=== PATIENT | female | born 1990 | race Caucasian/White ===

== ENCOUNTER 2016-10-12 17:01 | Emergency (ER) | payer OTHER ==
--- NOTE | 2016-10-12 20:18 | ED NURSING NOTES ---
Clinical Report - Nurses [facility] [address] [place] [address] 10/12/2016 17:01 [id number] Triage time 17:21. Acuity: LEVEL 3. Chief Complaint: ABDOMINAL PAIN and NAUSEA. Alert. No acute distress. ( Pt. states she just woke up and had pain in her stomach and felt sick:super nauseated.). SEPSIS SCREEN: Sepsis Screen. Negative (no infection suspected/documented). PRANEETH COMA SCORE: [place] Coma Scale: 15- eyes open spontaneously (4); best verbal response- oriented x 4 (5); best motor response- obeys commands (6). --17:27 Candice Moy R.N. 17:21 10/12/16. BP: 112/66. HR: 84. RR: 16. O2 saturation: 99%. Temp: 97.9 F. Pain level now: 7/10. Describes the quality as sharp. No radiation noted. No provoking / relieving factors. It has been constant. --17:27 Candice Moy R.N. Weight: 61.2 kg stated. Height/Length: 65 inches Per Patient. BMI: 22.5. --17:23 Candice Moy R.N. Medications TraZODone HCl Oral 50 mg, at bedtime. Tylenol Oral. Zoloft Oral. --17:26 Candice Moy R.N. Allergies Amoxicillin. Penicillin. --17:26 Candice Moy R.N. History Arrived by private vehicle. Historian: patient. Unaccompanied. Primary physician (Alex). Onset. (3 days ago). Treatment PREVENTIVE MEDICINE SPECIALIST: None. PAST MEDICAL HX: Immunizations: up-to-date. Has had a hysterectomy. SOCIAL HX: Current every day heavy tobacco smoker (cigarette)- less than 1 pack per day. Never smoker. Alcohol use; consumes beer occasionally. History of occasional drug use: marijuana. No recent travel. No infectious disease exposure. No known contact with a sick individual. ABUSE ASSESSMENT: Abuse assessment: The patient was asked "Do you feel safe in your home?" and "Has anyone hurt you or threatened to hurt you?". No report of abuse. SELF HARM ASSESSMENT: A self harm assessment was performed. The patient answered "no" to the question "Do you have thoughts of harming or killing yourself?" and "Have you recently had thoughts about harming or killing others?". Bedside precautions. NUTRITIONAL RISK ASSESSMENT: The nutritional risk assessment revealed no deficiencies. FUNCTIONAL ASSESSMENT: Functional assessment: no impairments noted. LEARNING NEEDS ASSESSMENT: The learning needs assessment revealed no barriers. --17:27 Candice Moy R.N. PROBLEMS: Bronchitis. Abdominal Pain. Headache. Depression. Drug Poisoning. Sinusitis. Lifestyle / Substance Problems. Pyelonephritis. Gastroenteritis. UTI - Urinary Tract Infection. --17:26 Candice Moy R.N. ADDITIONAL SURGERIES: Cholecystectomy. Hysterectomy. Guadalupe Fundoplasty. Oophorectomy. --17:27 Candice Moy R.N. Interventions ID band on patient. Ambulatory. --17:27 Candice Moy R.N. PHYSICAL ASSESSMENT Ambulatory to room. ( Pt. states her last normal BM was x3 days ago.). GENERAL / NEURO / PSYCH: Alert. Appears in no acute distress. HEENT: Mucous membranes are pink. RESPIRATORY: Respirations not labored. CVS: Capillary refill less than 2 seconds. GI / : Abdomen soft. Abdominal tenderness in the right upper quadrant. SKIN: Skin is warm and dry. --17:28 Candice Moy R.N. NURSING PROGRESS NOTES Two patient identifiers checked. Call light placed in reach. Side rails up x 2. Bed placed in lowest position. Brakes of bed on. Patient ready for evaluation- chart flagged. --17:28 Candice Moy R.N. 18:00 10/12/2016 Site #1 started via IV in the right antecubital space with an 20g angiocath, with aseptic technique and good blood return; one attempt. Blood drawn: rainbow set. Labeled in the presence of the patient and sent to the lab. Saline lock flushed with 10 mL saline. --18:34 Candice Moy R.N. 18:35 10/12/2016 Zofran (Ondansetron HCl) IVP 4 mg given over 1 minute(s) via site #1. Allergies verified and confirmed 5 rights. IV patency established. IV site checked: no pain, redness, or swelling. IV flushed thoroughly pre- and post-medication administration. --18:35 Candice Moy R.N. 18:36 10/12/2016 Toradol IVP 30 mg given over 2 minute(s) via site #1. Allergies verified and confirmed 5 rights. IV patency established. IV site checked: no pain, redness, or swelling. IV flushed thoroughly pre- and post-medication administration. --18:36 Candice Moy R.N. ( correction to prior charting: IV placed at 1728.). --18:37 Candice Moy R.N. Reassessment after medication administered. She has had no adverse reaction. Overall patient status is the same. --18:40 Candice Moy R.N. 18:40 10/12/16. BP: 101/61. HR: 77. RR: 16. O2 saturation: 100%. Pain level now 7/10. --18:40 Candice Moy R.N. 19:43 10/12/16. BP: 107/68. HR: 72. RR: 16. O2 saturation: 100%. Pain level now 9/10. --19:44 Candice Moy R.N. 20:28 10/12/2016 Zofran (Ondansetron HCl) IVP 4 mg given over 1 minute(s) via site #1. Allergies verified and confirmed 5 rights. IV patency established. IV site checked: no pain, redness, or swelling. IV flushed thoroughly pre- and post-medication administration. --20:28 Candice Moy R.N. 20:30 10/13/2016 Zofran IVP Response: no adverse reaction pain is improving. --00:04 Candice Moy R.N. DISPOSITION / DISCHARGE 00:02 10/12/16. BP: deferred. HR: deferred. RR: 16. O2 saturation: deferred. Temp: 98.6 F. Fernandez-Vyas pain scale: /10. --00:12 Candice Moy R.N. ( 19:43 107/68. HR: 72. RR: 16. O2 saturation: 100%. Pain level now 910). --00:12 Candice Moy R.N. 20:30 10/12/2016 Site #1 removed upon discharge. Catheter intact. Manual pressure and bandaid applied. --00:13 Candice Moy R.N. 20:30. Departure time: 2029. Condition at departure: stable. No learning barriers present. Discharge instructions provided and reviewed with the patient. Reviewed medication(s) side effects, precautions, dosing and course information. Prescription(s) given to the patient. Reviewed referral to family practice for followup. Patient verbalized understanding. Written instructions provided in Eritrean. The patient was discharged home and accompanied by stand up forklift operator. She left the Emergency Department ambulatory and via private vehicle. Concrete Journeyman driving. Medication list reviewed and validated. --00:15 Candice Moy R.N. ( all discharge done at 2029). --00:15 Candice Moy R.N. Locked/Released at 10/13/2016 0:16 by Candice Moy R.N.
--- NOTE | 2016-10-12 20:18 | ED ORDER SUMMARY ---
..... Patient: MALCOLM ORLANDO OrderSheet [facility] VisitID: [id number] [address] [place] [address] 25y, F Registration Date/Time: 10/12/2016 ORDER SHEET Weight: 61.2 kg (stated) Allergies: Amoxicillin, Penicillin GENERAL ORDERS: UA-Culture if indicated Urgent (17:32 10/12/2016 SReitz R.N. per protocol) (17:56 NHouse ER Tech1) CBC w Diff Urgent (18:20 10/12/2016 HBivens A.R.N.P.) (18:57 SReitz R.N.) CMP Urgent (18:20 10/12/2016 HBivens A.R.N.P.) (18:57 SReitz R.N.) Amylase Urgent (18:20 10/12/2016 HBivens A.R.N.P.) (18:57 SReitz R.N.) Lipase Urgent (18:20 10/12/2016 HBivens A.R.N.P.) (18:57 SReitz R.N.) Urine Urgent (18:20 10/12/2016 HBivens A.R.N.P.) (18:33 HBivens A.R.N.P.) (Cancelled: Other18:33 HBivens A.R.N.P.) MEDICATION ORDERS: IV FLUIDS: Toradol IV 30 mg (NOW) (18:19 10/12/2016 HBivens A.R.N.P.) (Ack 18:21 SReitz R.N.) (18:36 SReitz R.N.) Zofran IV 4 mg (NOW) (18:19 10/12/2016 HBivens A.R.N.P.) (Ack 18:21 SReitz R.N.) (18:35 SReitz R.N.) IV Saline Lock (18:20 10/12/2016 HBivens A.R.N.P.) (Ack 18:21 SReitz R.N.) Zofran IV 4 mg (NOW) (20:28 10/12/2016 SReitz R.N. verbal order read back to HBivens A.R.N.PGiovanny) (20:28 Ludy Yañez) ORDER SHEET NOTES: [Electronically signed by Lynn GoodsonNGiovannyPGiovanny (21:31 10/12/2016)] [Electronically signed by Candice Moy R.N. (00:16 10/13/2016)] [Electronically locked/signed by Candice Moy R.N. (00:16 10/13/2016)]
--- NOTE | 2016-10-12 20:18 | ED ORDER SUMMARY ---
..... Patient: MALCOLM ORLANDO OrderSheet [facility] VisitID: [id number] [address] [place] [address] 25y, F Registration Date/Time: 10/12/2016 ORDER SHEET Weight: 61.2 kg (stated) Allergies: Amoxicillin, Penicillin GENERAL ORDERS: UA-Culture if indicated Urgent (17:32 10/12/2016 SReitz R.N. per protocol) (17:56 NHouse ER Tech1) CBC w Diff Urgent (18:20 10/12/2016 HBivens A.R.N.P.) (18:57 SReitz R.N.) CMP Urgent (18:20 10/12/2016 HBivens A.R.N.P.) (18:57 SReitz R.N.) Amylase Urgent (18:20 10/12/2016 HBivens A.R.N.P.) (18:57 SReitz R.N.) Lipase Urgent (18:20 10/12/2016 HBivens A.R.N.P.) (18:57 SReitz R.N.) Urine Urgent (18:20 10/12/2016 HBivens A.R.N.P.) (18:33 HBivens A.R.N.P.) (Cancelled: Other18:33 HBivens A.R.N.P.) MEDICATION ORDERS: IV FLUIDS: Toradol IV 30 mg (NOW) (18:19 10/12/2016 HBivens A.R.N.P.) (Ack 18:21 SReitz R.N.) (18:36 SReitz R.N.) Zofran IV 4 mg (NOW) (18:19 10/12/2016 HBivens A.R.N.P.) (Ack 18:21 SReitz R.N.) (18:35 SReitz R.N.) IV Saline Lock (18:20 10/12/2016 HBivens A.R.N.P.) (Ack 18:21 SReitz R.N.) Zofran IV 4 mg (NOW) (20:28 10/12/2016 SReitz R.N. verbal order read back to HBivens A.R.N.PGiovanny) (20:28 Ludy Yañez) ORDER SHEET NOTES: [Electronically signed by Lynn GoodsonNGiovannyPGiovanny (21:31 10/12/2016)] [Electronically signed by Candice Moy R.N. (00:16 10/13/2016)] [Electronically locked/signed by Candice Moy R.N. (00:16 10/13/2016)]
--- NOTE | 2016-10-12 20:18 | ED CLINICAL REPORT ---
Clinical Report - Physicians/Mid Levels [facility] [address] [place] [address] 10/12/2016 17:01 Patient: MALCOLM ORLANDO Time Seen: 18:12; initial patient contact, initial documentation, patient care assumed. Arrived- By private vehicle. Historian- patient. HISTORY OF PRESENT ILLNESS Chief Complaint: ABDOMINAL PAIN. At its maximum, severity described as moderate. When seen in the E.D., severity described as moderate. Modifying factors. Not worsened by anything. Not relieved by anything. It is described as "pain" and it is described as located in the right upper quadrant, epigastric area and left upper quadrant and in the upper abdomen. This started about 3 days ago and is still present. The patient has had nausea. No loss of appetite, vomiting or diarrhea. No recent travel. Similar symptoms previously: Chronically, as bad. Recent medical care: Not recently seen/assessed. REVIEW OF SYSTEMS No constipation, black stools, hematemesis, difficulty with urination or pain with urination. No urinary frequency, bloody stools, fever, chest pain or difficulty breathing. Denies current . All systems otherwise negative, except as recorded above. PAST HISTORY See nurses notes. PROBLEMS: Bronchitis. Abdominal Pain. Headache. Depression. Drug Poisoning. Sinusitis. Lifestyle / Substance Problems. Pyelonephritis. Gastroenteritis. UTI - Urinary Tract Infection. --17:26 Candice Moy RCalli. ADDITIONAL SURGERIES: Cholecystectomy. Hysterectomy. Guadalupe Fundoplasty. Oophorectomy. --17:27 Candice Moy RCalli. SOCIAL HISTORY Heavy tobacco smoker. Occasional alcohol use. History of occasional drug use: marijuana. No recent travel. Is a local resident. FAMILY HISTORY Negative. ADDITIONAL NOTES The nursing notes have been reviewed with agreement regarding the chief complaint, HPI, ROS, PMH and patient medications and allergies. PHYSICAL EXAM Vital Signs: 10/12/2016 17:21 BP: 112/66. HR: 84. RR: 16. O2 saturation: 99%. Temp: 97.9 F. Pain level now: 04/18. Have been reviewed as normal and appear to be correct. Appearance: Alert. Oriented X3. No acute distress. Eyes: Pupils equal, round and reactive to light. Eyes normal inspection. Neck: Normal inspection. Neck supple. CVS: Normal heart rate and rhythm. Heart sounds normal. Pulses normal. Respiratory: No respiratory distress. Breath sounds normal. Chest nontender. Abdomen: Soft and nontender. Bowel sounds normal. No organomegaly. No mass. Back: Normal inspection. Skin: Skin warm and dry. Normal skin color. No rash. Normal skin turgor. Extremities: Extremities exhibit normal ROM. No lower extremity edema. Neuro: Oriented X 3. No motor deficit. No sensory deficit. LABS, X-RAYS, AND EKG Laboratory Tests: UA-Culture if indicated: (MISBAH: 10/12/2016 17:30) ( [facility] 10/12/2016 18:14) Final results Test Result Flag Units (Reference) URINE COLOR YELLOW URINE APPEARANCE CLEAR URINE GLUCOSE NEGATIVE (NEGATIVE) URINE BILIRUBIN NEGATIVE (NEGATIVE) URINE KETONE NEGATIVE (NEGATIVE) URINE SPECIFIC GRAVITY 1.020 (1.010-1.030) URINE PH 7.0 (5.0-8.0) URINE PROTEIN NEGATIVE (NEGATIVE) URINE UROBILINOGEN 0.2 EU/dL (0.2-1.0) URINE NITRITE NEGATIVE (NEGATIVE) URINE BLOOD NEGATIVE (NEGATIVE) URINE LEUK ESTERASE NEGATIVE (NEGATIVE) URINE RBC 0-1 rbc/hpf (0-1) URINE WBC 0-1 wbc/hpf (0-1) URINE EPITHELIAL CELLS 0-1 EPI/hpf (0-5) URINE BACTERIA NONE SEEN (NONE SEEN) URINE COMMENT CULT NOT INDICATED URINE CULTURES ARE SET-UP BASED ON THE FOLLOWING CRITERIA:POSITIVE NITRITEPOSITIVE LEUKOCYTE ESTERASEGREATER THAN 10 WHITE BLOOD CELLSMODERATE (2+) OR GREATER BACTERIA Urine: (MISBAH: 10/12/2016 17:50) ( [facility] 10/12/2016 18:31) Final results Test Result Flag Units (Reference) URINE NEGATIVE CBC w Diff: (MISBAH: 10/12/2016 17:50) ( [facility] 10/12/2016 18:31) Final results Test Result Flag Units (Reference) WHITE BLOOD COUNT 10.3 K/uL (4.5-11.5) RED BLOOD COUNT 3.77 L M/uL (4.00-5.20) HEMOGLOBIN 12.1 gm/dL (12.0-16.0) HEMATOCRIT 36.7 % (36.0-46.0) MEAN CELL VOLUME 97 fL (80-100) MEAN CORPUSCULAR HGB 32 pg (26-34) MEAN CORPUSCULAR HGB CONC 33 g/dL (31-37) RED CELL DISTRIBUTION WIDTH 12.6 % (11.6-14.8) PLATELET COUNT 310 K/uL (150-400) NEUTROPHIL % 70.8 % (50-75) LYMPH % 20.9 L % (25-40) MONO % 4.6 % (3-14) EOSINOPHIL % 2.4 % (0-4) BASOPHIL % 1.3 % (0-2) CMP: (MISBAH: 10/12/2016 17:50) ( [facility] 10/12/2016 18:42) Final results Test Result Flag Units (Reference) GLUCOSE 91 mg/dL (70-110) BUN 25 H mg/dL (7-18) CREATININE 1.0 mg/dL (0.6-1.3) Estimated GFR >60 mL/min Estimated GFR- >60 mL/min Note: Persistent reduction over 3 months in eGFR<60 mL/min/1.73 m2 defines CKD. Patients with eGFR values>=60 mL/min/1.73 m2 may also have CKD if evidence ofpersistent proteinuria. Additional information may be foundat www.kidney.org. SODIUM 141 mmol/L (136-145) POTASSIUM 4.0 mmol/L (3.5-5.1) CHLORIDE 106 mmol/L (98-107) CARBON DIOXIDE 26 mmol/L (21-32) CALCIUM 8.8 mg/dL (8.5-10.1) TOTAL PROTEIN 7.1 g/dL (6.4-8.2) ALBUMIN 3.9 g/dL (3.3-5.0) BILIRUBIN, TOTAL 0.4 mg/dL (0.0-1.0) ALKALINE PHOSPHATASE 51 U/L (46-116) AST (SGOT) 13 L U/L (15-37) ALT (SGPT) 15 U/L (12-78) LIPASE 255 U/L (73-393) AMYLASE 75 U/L (25-115) . PROGRESS AND PROCEDURES Course of Care: 18:15 10/12/16. pt has robert recommending no narcs be given, pt using different last names, and frequent er visits, see report for full details. Patient counseled in person regarding the patient's stable condition, test results and diagnosis. 19:49. Differential Diagnosis: I considered gastritis, gastroenteritis, gastroesophageal reflux disease, diverticulitis, colon cancer, ulcerative colitis, Crohn's disease, small bowel obstruction, adhesions, obstipation, hepatitis, pancreatitis, common bile duct obstruction, cholangitis, urinary tract infection, ureterolithiasis and viral syndrome as a possible cause of abdominal pain in this patient. This is a partial list of diagnoses considered. (substance abuse). Above considerations are based on history, physical exam and laboratory data. Differential diagnosis was discussed with patient. Disposition: Discharged home in good and improved condition (20:17). Condition: good and stable. CLINICAL IMPRESSION Chronic abdominal pain of undetermined cause. INSTRUCTIONS Warnings: GENERAL WARNINGS: Return or contact your physician immediately if your condition worsens or changes unexpectedly, if not improving as expected, or if other problems arise. SPECIFICALLY, return if you develop pain in the abdomen, fever, the inability to keep fluids down, blood in vomitus, blood in diarrhea, fainting or lightheadedness. Prescription Medications: Zofran 4 mg: Take 1 orally every six hours as needed for nausea/vomiting. Dispense ten (10). No refills. Substitution is permissible. Pepcid 20 mg tablets: Take 1 orally every 12 hours. Dispense thirty (30). No refills. Substitution is permissible. Bentyl 20 mg tablets: take 1 orally every 6 hours as needed. Dispense thirty (30). No refills. Substitution is permissible. Follow-up: Follow up with your doctor in about two days even if well. Call for an appointment. Summary of care provided to patient. Understanding of the discharge instructions verbalized by patient. (Electronically signed by Lynn Goodson A.R.N.P. 10/12/2016 21:31)
--- NOTE | 2016-10-12 20:18 | ED NURSING NOTES ---
Clinical Report - Nurses [facility] [address] [place] [address] 10/12/2016 17:01 [id number] Triage time 17:21. Acuity: LEVEL 3. Chief Complaint: ABDOMINAL PAIN and NAUSEA. Alert. No acute distress. ( Pt. states she just woke up and had pain in her stomach and felt sick:super nauseated.). SEPSIS SCREEN: Sepsis Screen. Negative (no infection suspected/documented). PRANEETH COMA SCORE: [place] Coma Scale: 15- eyes open spontaneously (4); best verbal response- oriented x 4 (5); best motor response- obeys commands (6). --17:27 Candice Moy R.N. 17:21 10/12/16. BP: 112/66. HR: 84. RR: 16. O2 saturation: 99%. Temp: 97.9 F. Pain level now: 7/10. Describes the quality as sharp. No radiation noted. No provoking / relieving factors. It has been constant. --17:27 Candice Moy R.N. Weight: 61.2 kg stated. Height/Length: 65 inches Per Patient. BMI: 22.5. --17:23 Candice Moy R.N. Medications TraZODone HCl Oral 50 mg, at bedtime. Tylenol Oral. Zoloft Oral. --17:26 Candice Moy R.N. Allergies Amoxicillin. Penicillin. --17:26 Candice Moy R.N. History Arrived by private vehicle. Historian: patient. Unaccompanied. Primary physician (Alex). Onset. (3 days ago). Treatment SALES COMMISSIONS ANALYST: None. PAST MEDICAL HX: Immunizations: up-to-date. Has had a hysterectomy. SOCIAL HX: Current every day heavy tobacco smoker (cigarette)- less than 1 pack per day. Never smoker. Alcohol use; consumes beer occasionally. History of occasional drug use: marijuana. No recent travel. No infectious disease exposure. No known contact with a sick individual. ABUSE ASSESSMENT: Abuse assessment: The patient was asked "Do you feel safe in your home?" and "Has anyone hurt you or threatened to hurt you?". No report of abuse. SELF HARM ASSESSMENT: A self harm assessment was performed. The patient answered "no" to the question "Do you have thoughts of harming or killing yourself?" and "Have you recently had thoughts about harming or killing others?". Bedside precautions. NUTRITIONAL RISK ASSESSMENT: The nutritional risk assessment revealed no deficiencies. FUNCTIONAL ASSESSMENT: Functional assessment: no impairments noted. LEARNING NEEDS ASSESSMENT: The learning needs assessment revealed no barriers. --17:27 Candice Moy R.N. PROBLEMS: Bronchitis. Abdominal Pain. Headache. Depression. Drug Poisoning. Sinusitis. Lifestyle / Substance Problems. Pyelonephritis. Gastroenteritis. UTI - Urinary Tract Infection. --17:26 Candice Moy R.N. ADDITIONAL SURGERIES: Cholecystectomy. Hysterectomy. Guadalupe Fundoplasty. Oophorectomy. --17:27 Candice Moy R.N. Interventions ID band on patient. Ambulatory. --17:27 Candice Moy R.N. PHYSICAL ASSESSMENT Ambulatory to room. ( Pt. states her last normal BM was x3 days ago.). GENERAL / NEURO / PSYCH: Alert. Appears in no acute distress. HEENT: Mucous membranes are pink. RESPIRATORY: Respirations not labored. CVS: Capillary refill less than 2 seconds. GI / : Abdomen soft. Abdominal tenderness in the right upper quadrant. SKIN: Skin is warm and dry. --17:28 Candice Moy R.N. NURSING PROGRESS NOTES Two patient identifiers checked. Call light placed in reach. Side rails up x 2. Bed placed in lowest position. Brakes of bed on. Patient ready for evaluation- chart flagged. --17:28 Candice Moy R.N. 18:00 10/12/2016 Site #1 started via IV in the right antecubital space with an 20g angiocath, with aseptic technique and good blood return; one attempt. Blood drawn: rainbow set. Labeled in the presence of the patient and sent to the lab. Saline lock flushed with 10 mL saline. --18:34 Candice Moy R.N. 18:35 10/12/2016 Zofran (Ondansetron HCl) IVP 4 mg given over 1 minute(s) via site #1. Allergies verified and confirmed 5 rights. IV patency established. IV site checked: no pain, redness, or swelling. IV flushed thoroughly pre- and post-medication administration. --18:35 Candice Moy R.N. 18:36 10/12/2016 Toradol IVP 30 mg given over 2 minute(s) via site #1. Allergies verified and confirmed 5 rights. IV patency established. IV site checked: no pain, redness, or swelling. IV flushed thoroughly pre- and post-medication administration. --18:36 Candice Moy R.N. ( correction to prior charting: IV placed at 1728.). --18:37 Candice Moy R.N. Reassessment after medication administered. She has had no adverse reaction. Overall patient status is the same. --18:40 Candice Moy R.N. 18:40 10/12/16. BP: 101/61. HR: 77. RR: 16. O2 saturation: 100%. Pain level now 7/10. --18:40 Candice Moy R.N. 19:43 10/12/16. BP: 107/68. HR: 72. RR: 16. O2 saturation: 100%. Pain level now 9/10. --19:44 Candice Moy R.N. 20:28 10/12/2016 Zofran (Ondansetron HCl) IVP 4 mg given over 1 minute(s) via site #1. Allergies verified and confirmed 5 rights. IV patency established. IV site checked: no pain, redness, or swelling. IV flushed thoroughly pre- and post-medication administration. --20:28 Candice Moy R.N. 20:30 10/13/2016 Zofran IVP Response: no adverse reaction pain is improving. --00:04 Candice Moy R.N. DISPOSITION / DISCHARGE 00:02 10/12/16. BP: deferred. HR: deferred. RR: 16. O2 saturation: deferred. Temp: 98.6 F. Fernandez-Vyas pain scale: /10. --00:12 Candice Moy R.N. ( 19:43 107/68. HR: 72. RR: 16. O2 saturation: 100%. Pain level now 910). --00:12 Candice Moy R.N. 20:30 10/12/2016 Site #1 removed upon discharge. Catheter intact. Manual pressure and bandaid applied. --00:13 Candice Moy R.N. 20:30. Departure time: 2029. Condition at departure: stable. No learning barriers present. Discharge instructions provided and reviewed with the patient. Reviewed medication(s) side effects, precautions, dosing and course information. Prescription(s) given to the patient. Reviewed referral to family practice for followup. Patient verbalized understanding. Written instructions provided in [place]. The patient was discharged home and accompanied by police district switchboard operator. She left the Emergency Department ambulatory and via private vehicle. Manager Staffing driving. Medication list reviewed and validated. --00:15 Candice Moy R.N. ( all discharge done at 2029). --00:15 Candice Moy R.N. Locked/Released at 10/13/2016 0:16 by Candice Moy R.N.
--- NOTE | 2016-10-13 00:16 | ED DISCHARGE INSTRUCTIONS ---
Patient: MALCOLM ORLANDO General Instructions [facility] VisitID: [id number] [place] [address] 25y, F Registration Date/Time: 10/12/2016 Chronic abdominal pain of undetermined cause. INSTRUCTIONS Warnings: GENERAL WARNINGS: Return or contact your physician immediately if your condition worsens or changes unexpectedly, if not improving as expected, or if other problems arise. SPECIFICALLY, return if you develop pain in the abdomen, fever, the inability to keep fluids down, blood in vomitus, blood in diarrhea, fainting or lightheadedness. Prescription Medications: Zofran 4 mg: Take 1 orally every six hours as needed for nausea/vomiting. Dispense ten (10). No refills. Substitution is permissible. Pepcid 20 mg tablets: Take 1 orally every 12 hours. Dispense thirty (30). No refills. Substitution is permissible. Bentyl 20 mg tablets: take 1 orally every 6 hours as needed. Dispense thirty (30). No refills. Substitution is permissible. Follow-up: Follow up with your doctor in about two days even if well. Call for an appointment. Summary of care provided to patient. Understanding of the discharge instructions verbalized by patient. ADDITIONAL INFORMATION Ondansetron Oral disintegrating tablet What is this medicine? ONDANSETRON (on HUA se veronica) is used to treat nausea and vomiting caused by chemotherapy. It is also used to prevent or treat nausea and vomiting after surgery. How should I use this medicine? These tablets are made to dissolve in the mouth. Do not try to push the tablet through the foil backing. With dry hands, peel away the foil backing and gently remove the tablet. Place the tablet in the mouth and allow it to dissolve, then swallow. While you may take these tablets with water, it is not necessary to do so. Talk to your territory service representative regarding the use of this medicine in children. Special care may be needed. What side effects may I notice from receiving this medicine? Side effects that you should report to your doctor or health emergency care tech as soon as possible: allergic reactions like skin rash, itching or hives, swelling of the face, lips, or tongue breathing problems dizziness fast or irregular heartbeat feeling faint or lightheaded, falls fever and chills swelling of the hands and feet tightness in the chest Side effects that usually do not require medical attention (report to your doctor or health emergency care tech if they continue or are bothersome): constipation or diarrhea headache What may interact with this medicine? Do not take this medicine with any of the following medications: -apomorphine -cisapride -dofetilide -dronedarone -pimozide -thioridazine -ziprasidone This medicine may also interact with the following medications: -carbamazepine -phenytoin -rifampicin -tramadol -other medicines that prolong the QT interval (cause an abnormal heart rhythm) What if I miss a dose? If you miss a dose, take it as soon as you can. If it is almost time for your next dose, take only that dose. Do not take double or extra doses. Where should I keep my medicine? Keep out of the reach of children. Store between 2 and 30 degrees C (36 and 86 degrees F). Throw away any unused medicine after the expiration date. What should I tell my health care provider before I take this medicine? They need to know if you have any of these conditions: heart disease history of irregular heartbeat liver disease low levels of magnesium or potassium in the blood an unusual or allergic reaction to ondansetron, granisetron, other medicines, foods, dyes, or preservatives or trying to get breast-feeding What should I watch for while using this medicine? Check with your doctor or health emergency care tech as soon as you can if you have any sign of an allergic reaction. Famotidine Oral tablet What is this medicine? FAMOTIDINE (fa DARRYL hoskins) is a type of antihistamine that blocks the release of stomach acid. It is used to treat stomach or intestinal ulcers. It can also relieve heartburn from acid reflux. How should I use this medicine? Take this medicine by mouth with a glass of water. Follow the directions on the prescription label. If you only take this medicine once a day, take it at bedtime. Take your doses at regular intervals. Do not take your medicine more often than directed. Talk to your territory service representative regarding the use of this medicine in children. Special care may be needed. What side effects may I notice from receiving this medicine? Side effects that you should report to your doctor or health emergency care tech as soon as possible: agitation, nervousness confusion hallucinations skin rash, itching Side effects that usually do not require medical attention (report to your doctor or health emergency care tech if they continue or are bothersome): constipation diarrhea dizziness headache What may interact with this medicine? delavirdine itraconazole ketoconazole What if I miss a dose? If you miss a dose, take it as soon as you can. If it is almost time for your next dose, take only that dose. Do not take double or extra doses. Where should I keep my medicine? Keep out of the reach of children. Store at room temperature between 15 and 30 degrees C (59 and 86 degrees F). Do not freeze. Throw away any unused medicine after the expiration date. What should I tell my health care provider before I take this medicine? They need to know if you have any of these conditions: kidney or liver disease trouble swallowing an unusual or allergic reaction to famotidine, other medicines, foods, dyes, or preservatives or trying to get breast-feeding What should I watch for while using this medicine? Tell your doctor or health emergency care tech if your condition does not start to get better or if it gets worse. Finish the full course of tablets prescribed, even if you feel better. Do not take with aspirin, ibuprofen or other antiinflammatory medicines. These can make your condition worse. Do not smoke cigarettes or drink alcohol. These cause irritation in your stomach and can increase the time it will take for ulcers to heal. If you get black, tarry stools or vomit up what looks like coffee grounds, call your doctor or health emergency care tech at once. You may have a bleeding ulcer. Dicyclomine Hydrochloride Oral tablet What is this medicine? DICYCLOMINE (dye BRENNON hager) is used to treat bowel problems including irritable bowel syndrome. How should I use this medicine? Take this medicine by mouth with a glass of water. Follow the directions on the prescription label. It is best to take this medicine on an empty stomach, 30 minutes to 1 hour before meals. Take your medicine at regular intervals. Do not take your medicine more often than directed. Talk to your territory service representative regarding the use of this medicine in children. Special care may be needed. While this drug may be prescribed for children as young as 6 months of age for selected conditions, precautions do apply. Patients over 65 years old may have a stronger reaction and need a smaller dose. What side effects may I notice from receiving this medicine? Side effects that you should report to your doctor or health emergency care tech as soon as possible: agitation, nervousness, confusion difficulty swallowing dizziness, drowsiness fast or slow heartbeat hallucinations pain or difficulty passing urine Side effects that usually do not require medical attention (report to your doctor or health emergency care tech if they continue or are bothersome): constipation headache nausea or vomiting sexual difficulty What may interact with this medicine? amantadine antacids benztropine digoxin disopyramide medicines for allergies, colds and breathing difficulties medicines for alzheimer's disease medicines for anxiety or sleeping problems medicines for depression or psychotic disturbances medicines for diarrhea medicines for pain metoclopramide tegaserod What if I miss a dose? If you miss a dose, take it as soon as you can. If it is almost time for your next dose, take only that dose. Do not take double or extra doses. Where should I keep my medicine? Keep out of the reach of children. Store at room temperature below 30 degrees C (86 degrees F). Protect from light. Throw away any unused medicine after the expiration date. What should I tell my health care provider before I take this medicine? They need to know if you have any of these conditions: difficulty passing urine esophagus problems or heartburn glaucoma heart disease, or previous heart attack myasthenia gravis prostate trouble stomach infection, or obstruction ulcerative colitis an unusual or allergic reaction to dicyclomine, other medicines, foods, dyes, or preservatives or trying to get breast-feeding What should I watch for while using this medicine? You may get drowsy, dizzy, or have blurred vision. Do not drive, use machinery, or do anything that needs mental alertness until you know how this medicine affects you. To reduce the risk of dizzy or fainting spells, do not sit or stand up quickly, especially if you are an older patient. Alcohol can make you more drowsy, avoid alcoholic drinks. Stay out of bright light and wear sunglasses if this medicine makes your eyes more sensitive to light. Avoid extreme heat (hot tubs, saunas). This medicine can cause you to sweat less than normal. Your body temperature could increase to dangerous levels, which may lead to heat stroke. Antacids can stop this medicine from working. If you get an upset stomach and want to take an antacid, make sure there is an interval of at least 1 to 2 hours before or after you take this medicine. Your mouth may get dry. Chewing sugarless gum or sucking hard candy, and drinking plenty of water may help. Contact your doctor if the problem does not go away or is severe. You have been given the following additional information: Ondansetron Oral disintegrating tablet Famotidine Oral tablet Dicyclomine Hydrochloride Oral tablet (Electronically signed by Lynn Goodson A.R.N.P. 10/12/2016 21:31)
--- NOTE | 2016-10-13 00:16 | ED DISCHARGE INSTRUCTIONS ---
Patient: MALCOLM ORLANDO General Instructions [facility] VisitID: [id number] [place] [address] 25y, F Registration Date/Time: 10/12/2016 Chronic abdominal pain of undetermined cause. INSTRUCTIONS Warnings: GENERAL WARNINGS: Return or contact your physician immediately if your condition worsens or changes unexpectedly, if not improving as expected, or if other problems arise. SPECIFICALLY, return if you develop pain in the abdomen, fever, the inability to keep fluids down, blood in vomitus, blood in diarrhea, fainting or lightheadedness. Prescription Medications: Zofran 4 mg: Take 1 orally every six hours as needed for nausea/vomiting. Dispense ten (10). No refills. Substitution is permissible. Pepcid 20 mg tablets: Take 1 orally every 12 hours. Dispense thirty (30). No refills. Substitution is permissible. Bentyl 20 mg tablets: take 1 orally every 6 hours as needed. Dispense thirty (30). No refills. Substitution is permissible. Follow-up: Follow up with your doctor in about two days even if well. Call for an appointment. Summary of care provided to patient. Understanding of the discharge instructions verbalized by patient. ADDITIONAL INFORMATION Ondansetron Oral disintegrating tablet What is this medicine? ONDANSETRON (on HUA se veronica) is used to treat nausea and vomiting caused by chemotherapy. It is also used to prevent or treat nausea and vomiting after surgery. How should I use this medicine? These tablets are made to dissolve in the mouth. Do not try to push the tablet through the foil backing. With dry hands, peel away the foil backing and gently remove the tablet. Place the tablet in the mouth and allow it to dissolve, then swallow. While you may take these tablets with water, it is not necessary to do so. Talk to your electrical system specialist regarding the use of this medicine in children. Special care may be needed. What side effects may I notice from receiving this medicine? Side effects that you should report to your doctor or health health care analyst as soon as possible: allergic reactions like skin rash, itching or hives, swelling of the face, lips, or tongue breathing problems dizziness fast or irregular heartbeat feeling faint or lightheaded, falls fever and chills swelling of the hands and feet tightness in the chest Side effects that usually do not require medical attention (report to your doctor or health health care analyst if they continue or are bothersome): constipation or diarrhea headache What may interact with this medicine? Do not take this medicine with any of the following medications: -apomorphine -cisapride -dofetilide -dronedarone -pimozide -thioridazine -ziprasidone This medicine may also interact with the following medications: -carbamazepine -phenytoin -rifampicin -tramadol -other medicines that prolong the QT interval (cause an abnormal heart rhythm) What if I miss a dose? If you miss a dose, take it as soon as you can. If it is almost time for your next dose, take only that dose. Do not take double or extra doses. Where should I keep my medicine? Keep out of the reach of children. Store between 2 and 30 degrees C (36 and 86 degrees F). Throw away any unused medicine after the expiration date. What should I tell my health care provider before I take this medicine? They need to know if you have any of these conditions: heart disease history of irregular heartbeat liver disease low levels of magnesium or potassium in the blood an unusual or allergic reaction to ondansetron, granisetron, other medicines, foods, dyes, or preservatives or trying to get breast-feeding What should I watch for while using this medicine? Check with your doctor or health health care analyst as soon as you can if you have any sign of an allergic reaction. Famotidine Oral tablet What is this medicine? FAMOTIDINE (fa DARRYL hoskins) is a type of antihistamine that blocks the release of stomach acid. It is used to treat stomach or intestinal ulcers. It can also relieve heartburn from acid reflux. How should I use this medicine? Take this medicine by mouth with a glass of water. Follow the directions on the prescription label. If you only take this medicine once a day, take it at bedtime. Take your doses at regular intervals. Do not take your medicine more often than directed. Talk to your electrical system specialist regarding the use of this medicine in children. Special care may be needed. What side effects may I notice from receiving this medicine? Side effects that you should report to your doctor or health health care analyst as soon as possible: agitation, nervousness confusion hallucinations skin rash, itching Side effects that usually do not require medical attention (report to your doctor or health health care analyst if they continue or are bothersome): constipation diarrhea dizziness headache What may interact with this medicine? delavirdine itraconazole ketoconazole What if I miss a dose? If you miss a dose, take it as soon as you can. If it is almost time for your next dose, take only that dose. Do not take double or extra doses. Where should I keep my medicine? Keep out of the reach of children. Store at room temperature between 15 and 30 degrees C (59 and 86 degrees F). Do not freeze. Throw away any unused medicine after the expiration date. What should I tell my health care provider before I take this medicine? They need to know if you have any of these conditions: kidney or liver disease trouble swallowing an unusual or allergic reaction to famotidine, other medicines, foods, dyes, or preservatives or trying to get breast-feeding What should I watch for while using this medicine? Tell your doctor or health health care analyst if your condition does not start to get better or if it gets worse. Finish the full course of tablets prescribed, even if you feel better. Do not take with aspirin, ibuprofen or other antiinflammatory medicines. These can make your condition worse. Do not smoke cigarettes or drink alcohol. These cause irritation in your stomach and can increase the time it will take for ulcers to heal. If you get black, tarry stools or vomit up what looks like coffee grounds, call your doctor or health health care analyst at once. You may have a bleeding ulcer. Dicyclomine Hydrochloride Oral tablet What is this medicine? DICYCLOMINE (dye BRENNON hager) is used to treat bowel problems including irritable bowel syndrome. How should I use this medicine? Take this medicine by mouth with a glass of water. Follow the directions on the prescription label. It is best to take this medicine on an empty stomach, 30 minutes to 1 hour before meals. Take your medicine at regular intervals. Do not take your medicine more often than directed. Talk to your electrical system specialist regarding the use of this medicine in children. Special care may be needed. While this drug may be prescribed for children as young as 6 months of age for selected conditions, precautions do apply. Patients over 65 years old may have a stronger reaction and need a smaller dose. What side effects may I notice from receiving this medicine? Side effects that you should report to your doctor or health health care analyst as soon as possible: agitation, nervousness, confusion difficulty swallowing dizziness, drowsiness fast or slow heartbeat hallucinations pain or difficulty passing urine Side effects that usually do not require medical attention (report to your doctor or health health care analyst if they continue or are bothersome): constipation headache nausea or vomiting sexual difficulty What may interact with this medicine? amantadine antacids benztropine digoxin disopyramide medicines for allergies, colds and breathing difficulties medicines for alzheimer's disease medicines for anxiety or sleeping problems medicines for depression or psychotic disturbances medicines for diarrhea medicines for pain metoclopramide tegaserod What if I miss a dose? If you miss a dose, take it as soon as you can. If it is almost time for your next dose, take only that dose. Do not take double or extra doses. Where should I keep my medicine? Keep out of the reach of children. Store at room temperature below 30 degrees C (86 degrees F). Protect from light. Throw away any unused medicine after the expiration date. What should I tell my health care provider before I take this medicine? They need to know if you have any of these conditions: difficulty passing urine esophagus problems or heartburn glaucoma heart disease, or previous heart attack myasthenia gravis prostate trouble stomach infection, or obstruction ulcerative colitis an unusual or allergic reaction to dicyclomine, other medicines, foods, dyes, or preservatives or trying to get breast-feeding What should I watch for while using this medicine? You may get drowsy, dizzy, or have blurred vision. Do not drive, use machinery, or do anything that needs mental alertness until you know how this medicine affects you. To reduce the risk of dizzy or fainting spells, do not sit or stand up quickly, especially if you are an older patient. Alcohol can make you more drowsy, avoid alcoholic drinks. Stay out of bright light and wear sunglasses if this medicine makes your eyes more sensitive to light. Avoid extreme heat (hot tubs, saunas). This medicine can cause you to sweat less than normal. Your body temperature could increase to dangerous levels, which may lead to heat stroke. Antacids can stop this medicine from working. If you get an upset stomach and want to take an antacid, make sure there is an interval of at least 1 to 2 hours before or after you take this medicine. Your mouth may get dry. Chewing sugarless gum or sucking hard candy, and drinking plenty of water may help. Contact your doctor if the problem does not go away or is severe. You have been given the following additional information: Ondansetron Oral disintegrating tablet Famotidine Oral tablet Dicyclomine Hydrochloride Oral tablet (Electronically signed by Lynn Goodson A.R.N.P. 10/12/2016 21:31)
--- NOTE | 2016-10-13 00:17 | ED MED RECONCILIATION SUMMARY ---
Patient: MALCOLM ORLANDO Medication Reconciliation Report [facility] VisitID: [id number] [address] [place] [address] 25y, F Registration Date/Time: 10/12/2016 Weight: 61.2 kg Height/Length: 65 in. BMI: 22.5 ALLERGIES: Amoxicillin, Penicillin The patient's Home Medications are listed below: THE FOLLOWING MEDICATIONS NEED TO BE RECONCILED: TraZODone HCl Oral 50 mg, at bedtime Tylenol Oral Zoloft Oral The source(s) of the original Home Medication information: Not obtained. The following Medications were given to the patient in the Emergency Department: Zofran [IVP] IVP 4 mg, administered: 10/12/2016 6:35:00 PM Toradol [IVP] IVP 30 mg, administered: 10/12/2016 6:36:00 PM Zofran [IVP] IVP 4 mg, administered: 10/12/2016 8:28:00 PM The following Medications were prescribed to the patient: Zofran 4 mg: Take 1 orally every six hours as needed for nausea/vomiting. Dispense ten (10). No refills. Substitution is permissible. -- Lynn Goodson A.R.N.P. Pepcid 20 mg tablets: Take 1 orally every 12 hours. Dispense thirty (30). No refills. Substitution is permissible. -- Lynn Goodson A.R.N.P. Bentyl 20 mg tablets: take 1 orally every 6 hours as needed. Dispense thirty (30). No refills. Substitution is permissible. -- Lynn Goodson A.R.N.P.
--- NOTE | 2016-10-13 00:17 | ED MAR SUMMARY ---
..... Medication Administration Record [facility] [address] [place] [address] Patient: MALCOLM ORLANDO Visit ID: [id number] 25y, F Weight: 61.2 kg Height/Length: 65 in BMI: 22.5 ALLERGIES: Amoxicillin, Penicillin Given 18:35 10/12/2016 Candice Moy R.N. Medication Administered: ZOFRAN [IVP] (ONDANSETRON HCL), Dose: 4 mg IVP over 1 minute(s), Site: #1 right AC. Medication Ordered: Zofran IV 4 mg (NOW). Given 18:36 10/12/2016 Candice Moy R.N. Medication Administered: TORADOL [IVP], Dose: 30 mg IVP over 2 minute(s), Site: #1 right AC. Medication Ordered: Toradol IV 30 mg (NOW). Given 20:28 10/12/2016 Candice Moy R.NGiovanny Medication Administered: ZOFRAN [IVP] (ONDANSETRON HCL), Dose: 4 mg IVP over 1 minute(s), Site: #1 right AC. Medication Ordered: Zofran IV 4 mg (NOW).
--- NOTE | 2016-10-13 00:17 | ED MED RECONCILIATION SUMMARY ---
Patient: MALCOLM ORLANDO Medication Reconciliation Report [facility] VisitID: [id number] [address] [place] [address] 25y, F Registration Date/Time: 10/12/2016 Weight: 61.2 kg Height/Length: 65 in. BMI: 22.5 ALLERGIES: Amoxicillin, Penicillin The patient's Home Medications are listed below: THE FOLLOWING MEDICATIONS NEED TO BE RECONCILED: TraZODone HCl Oral 50 mg, at bedtime Tylenol Oral Zoloft Oral The source(s) of the original Home Medication information: Not obtained. The following Medications were given to the patient in the Emergency Department: Zofran [IVP] IVP 4 mg, administered: 10/12/2016 6:35:00 PM Toradol [IVP] IVP 30 mg, administered: 10/12/2016 6:36:00 PM Zofran [IVP] IVP 4 mg, administered: 10/12/2016 8:28:00 PM The following Medications were prescribed to the patient: Zofran 4 mg: Take 1 orally every six hours as needed for nausea/vomiting. Dispense ten (10). No refills. Substitution is permissible. -- Lynn Goodson A.R.N.P. Pepcid 20 mg tablets: Take 1 orally every 12 hours. Dispense thirty (30). No refills. Substitution is permissible. -- Lynn Goodson A.R.N.P. Bentyl 20 mg tablets: take 1 orally every 6 hours as needed. Dispense thirty (30). No refills. Substitution is permissible. -- Lynn Goodson A.R.N.P.
--- NOTE | 2016-10-13 00:17 | ED MAR SUMMARY ---
..... Medication Administration Record [facility] [address] [place] [address] Patient: MALCOLM ORLANDO Visit ID: [id number] 25y, F Weight: 61.2 kg Height/Length: 65 in BMI: 22.5 ALLERGIES: Amoxicillin, Penicillin Given 18:35 10/12/2016 Candice Moy R.N. Medication Administered: ZOFRAN [IVP] (ONDANSETRON HCL), Dose: 4 mg IVP over 1 minute(s), Site: #1 right AC. Medication Ordered: Zofran IV 4 mg (NOW). Given 18:36 10/12/2016 Candice Moy R.N. Medication Administered: TORADOL [IVP], Dose: 30 mg IVP over 2 minute(s), Site: #1 right AC. Medication Ordered: Toradol IV 30 mg (NOW). Given 20:28 10/12/2016 Candice Moy R.NGiovanny Medication Administered: ZOFRAN [IVP] (ONDANSETRON HCL), Dose: 4 mg IVP over 1 minute(s), Site: #1 right AC. Medication Ordered: Zofran IV 4 mg (NOW).
== END 2016-10-12 20:30 | disposition home or self-care (01) ==
LOC: ED SRH 17:01
DX: R10.11 Right upper quadrant pain (principal); R10.13 Epigastric pain; R10.12 Left upper quadrant pain; G89.29 Other chronic pain; Z88.0 Allergy status to penicillin; Z88.1 Allergy status to other antibiotic agents; F17.210 Nicotine dependence, cigarettes, uncomplicated
CPT/HCPCS: 90004; 90100; 92235; 92530; 93070; 95059

== ENCOUNTER 2016-10-16 11:42 | Emergency (ER) | payer OTHER ==
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
--- NOTE | 2016-10-16 13:41 | ED ORDER SUMMARY ---
..... Patient: MALCOLM ORLANDO OrderSheet [facility] VisitID: [id number] [address] [place] [address] 25y, F Registration Date/Time: 10/16/2016 ORDER SHEET Weight: 60.3 kg (stated) Allergies: Amoxicillin, Penicillins GENERAL ORDERS: Chest 2V Urgent (12:44 10/16/2016 HBivens A.R.N.P.) (Ack 12:53 TBergley) (13:08 Alexander) CT Sinus/Facial Bones wo Cont Urgent (12:45 10/16/2016 HBivens A.R.N.P.) (Ack 12:53 TBergley) (13:08 Alexander) CT Head wo Cont Urgent (12:45 10/16/2016 HBivens A.R.N.P.) (Ack 12:53 TBergley) (13:08 Alexander) MEDICATION ORDERS: IV FLUIDS: ORDER SHEET NOTES: [Electronically signed by Lynn Goodson A.R.N.P. (13:53 10/16/2016)] [Electronically signed by Laney Rivera R.N. (:23 10/16/2016)] [Electronically locked/signed by Laney Rivera R.N. (:10/16/2016)]
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
--- NOTE | 2016-10-16 13:41 | ED ORDER SUMMARY ---
..... Patient: MALCOLM ORLANDO OrderSheet [facility] VisitID: [id number] [address] [place] [address] 25y, F Registration Date/Time: 10/16/2016 ORDER SHEET Weight: 60.3 kg (stated) Allergies: Amoxicillin, Penicillins GENERAL ORDERS: Chest 2V Urgent (12:44 10/16/2016 HBivens A.R.N.P.) (Ack 12:53 TBergley) (13:08 [place]) CT Sinus/Facial Bones wo Cont Urgent (12:45 10/16/2016 HBivens A.R.N.P.) (Ack 12:53 TBergley) (13:08 [place]) CT Head wo Cont Urgent (12:45 10/16/2016 HBivens A.R.N.P.) (Ack 12:53 TBergley) (13:08 [place]) MEDICATION ORDERS: IV FLUIDS: ORDER SHEET NOTES: [Electronically signed by Lynn Goodson A.R.N.P. (13:53 10/16/2016)] [Electronically signed by Laney Rivera R.N. (:23 10/16/2016)] [Electronically locked/signed by Laney Rivera R.N. (:10/16/2016)]
--- NOTE | 2016-10-16 19:24 | ED MAR SUMMARY ---
..... Medication Administration Record [facility] [address] [place], [place] [id number] Patient: MALCOLM ORLANDO Ned Visit ID: [id number] 25y, F Weight: 60.3 kg Height/Length: 65 in BMI: 22.1 ALLERGIES: Amoxicillin, Penicillins
--- NOTE | 2016-10-16 19:24 | ED MAR SUMMARY ---
..... Medication Administration Record [facility] [address] [place], [place] [id number] Patient: MALCOLM ORLANDO Ned Visit ID: [id number] 25y, F Weight: 60.3 kg Height/Length: 65 in BMI: 22.1 ALLERGIES: Amoxicillin, Penicillins
--- NOTE | 2016-10-16 19:24 | ED MED RECONCILIATION SUMMARY ---
Patient: DARION MALCOLMAFSHIN Marino Medication Reconciliation Report [facility] VisitID: [id number] [address] [place] [address] 25y, F Registration Date/Time: 10/16/2016 Weight: 60.3 kg Height/Length: 65 in. BMI: 22.1 ALLERGIES: Amoxicillin, Penicillins The patient's Home Medications are listed below: THE FOLLOWING MEDICATIONS NEED TO BE RECONCILED: Naproxen Oral 500 mg, 2x a day Sertraline HCl Oral 50 mg, daily TraZODone HCl Oral (100 mg), at bedtime Vistaril Oral (50 mg) 1 capsule, 4x a day The source(s) of the original Home Medication information: patient The following Medications were given to the patient in the Emergency Department: None. The following Medications were prescribed to the patient: Zofran 4 mg: Take 1 orally every six hours as needed for nausea/vomiting. Dispense ten (10). No refills. Substitution is permissible. -- Lynn Goodson, A.R.N.P. Naproxen 500 mg tablets: take 1 orally every 12 hours as needed for pain. Dispense twenty (20). No refills. -- Lynn Goodson, Laron.R.N.P.
--- NOTE | 2016-10-16 19:24 | ED MED RECONCILIATION SUMMARY ---
Patient: DARION MALCOLMAFSHIN Marino Medication Reconciliation Report [facility] VisitID: [id number] [address] [place] [address] 25y, F Registration Date/Time: 10/16/2016 Weight: 60.3 kg Height/Length: 65 in. BMI: 22.1 ALLERGIES: Amoxicillin, Penicillins The patient's Home Medications are listed below: THE FOLLOWING MEDICATIONS NEED TO BE RECONCILED: Naproxen Oral 500 mg, 2x a day Sertraline HCl Oral 50 mg, daily TraZODone HCl Oral (100 mg), at bedtime Vistaril Oral (50 mg) 1 capsule, 4x a day The source(s) of the original Home Medication information: patient The following Medications were given to the patient in the Emergency Department: None. The following Medications were prescribed to the patient: Zofran 4 mg: Take 1 orally every six hours as needed for nausea/vomiting. Dispense ten (10). No refills. Substitution is permissible. -- Lynn Goodson, A.R.N.P. Naproxen 500 mg tablets: take 1 orally every 12 hours as needed for pain. Dispense twenty (20). No refills. -- Lynn Goodson, Laron.R.N.P.
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
== END 2016-10-16 13:45 | disposition home or self-care (01) ==
LOC: ED SRH 11:42
DX: S05.10XA Contusion of eyeball and orbital tissues, unspecified eye, initial encounter (principal); Y04.2XXA Assault by strike against or bumped into by another person, initial encounter; Y92.410 Unspecified street and highway as the place of occurrence of the external cause; Y99.9 Unspecified external cause status; F17.210 Nicotine dependence, cigarettes, uncomplicated; Z88.0 Allergy status to penicillin; Z79.1 Long term (current) use of non-steroidal anti-inflammatories (NSAID)

== ENCOUNTER 2016-12-21 21:08 | Emergency (ER) | payer OTHER ==
--- NOTE | 2016-12-22 00:15 | DIAGNOSTIC IMAGING REPORT ---
PROCEDURE: CT ABD/PELVIS WITH CONTRAST INDICATION: Abdominal pain. Vomiting. History of cholecystectomy, Guadalupe fundoplication, and hysterectomy. TECHNIQUE: 125 ml of Isovue 300 were injected intravenously and axial images were obtained of the entire abdomen and pelvis with sagittal and coronal reformations. COMPARISON: Compared to renal ultrasound 10/30/2015. FINDINGS: ABDOMEN: Status post Guadalupe fundoplication. There is a 2.3 cm air and fluid collection which could represent a partially unwrapped Guadalupe (versus gastric diverticulum). Bowel pattern is otherwise normal. Cholecystectomy (surgical clips). Liver, spleen, pancreas, kidneys, and aorta are normal. PELVIS: Findings suggest visualization of a posterior appendix. No evidence of inflammatory process. Status post hysterectomy. No evidence of free fluid. IMPRESSION: 1. Status post fundoplication. There is a 2.3 cm air and fluid collection near the gastric fundus which could represent a partially unwrapped Guadalupe or gastric diverticulum (may represent incidental finding). 2. Status post cholecystectomy. 3. Normal appendix. 4. Status post hysterectomy. 5. Findings as with Dr. Franklin Quintero. All CT scans at this facility use dose modulation, iterative reconstruction, and/or weight-based dosing when appropriate to reduce radiation dose to as low as reasonably achievable.
--- NOTE | 2016-12-22 01:19 | ED NURSING NOTES ---
Clinical Report - Nurses [facility] [address] [place] [address] 12/21/2016 21:08 Patient: MALCOLM ORLANDO TRIAGE Triage time 21:17. Acuity: LEVEL 3. Chief Complaint: FEVER, CHILLS, WEAKNESS, NAUSEA and ABDOMINAL PAIN. Alert. No acute distress. --21:23 Natalya Hdez R.N. 21:16 12/21/16. BP: 110/56. HR: 74. RR: 15. O2 saturation: 100% on room air. Temp: 98.2 F (oral). Pain level now: 05/19. --21:23 Natalya Hdez R.N. Weight: 63.5 kg stated. Height/Length: 65 inches Per Patient. BMI: 23.3. --21:22 Natalya Hdez R.N. Medications TraZODone HCl Oral 50 mg, at bedtime. --21:18 Natalya Hdez R.N. Sertraline HCl Oral 100 mg, daily, started 4 days ago. --21:19 Natalya Hdez R.N. Abilify Oral, daily, started 4 days ago. --21:20 Natalya Hdez R.N. Prazosin HCl Oral, , to counteract night terrors, started 4 days ago. --21:20 Natalya Hdez R.N. Vistaril Oral (Capsule 50 mg) 1 capsule, PRN, last dose today at 1700. --21:21 Natalya Hdez R.N. Allergies Amoxicillin. Penicillins. --21:21 Natalya Hdez R.N. History Arrived by private vehicle. Historian: patient. Primary physician (Alex ([facility])). Onset. (about 3 days ago). PAST MEDICAL HX: Immunizations: up-to-date. SOCIAL HX: Heavy tobacco smoker (cigarette)- less than 1 pack per day. Occasional alcohol use. History of occasional drug use: marijuana. --21: Natalya Hdez R.N. PROBLEMS: Bronchitis. Headache. Depression. Sinusitis. Pyelonephritis. UTI - Urinary Tract Infection. --: Natalya Hdez R.N. Adverse Drug Reaction [RuleOut]. --21: Natalya Hdez R.N. ADDITIONAL SURGERIES: Cholecystectomy. Hysterectomy. Guadalupe Fundoplasty. Oophorectomy. --21: Natalya Hdez R.N. Interventions ID band on patient. To treatment room. --21:23 Natalya Hdez R.N. PHYSICAL ASSESSMENT Ambulatory to room. GENERAL / NEURO / PSYCH: Alert. Oriented X 4. Appears in no acute distress. HEENT: Mucous membranes are pink. RESPIRATORY: Respirations not labored. CVS: Capillary refill less than 2 seconds. SKIN: Skin is warm and dry. --21:24 Natalya Hdez R.N. NURSING PROGRESS NOTES Head of bed elevated. Two patient identifiers checked. Call light placed in reach. Side rails up x 1. Bed placed in lowest position. Brakes of bed on. --21:24 Natalya Hdez R.N. Patient ready for evaluation- chart flagged. --21:24 Natalya Hdez R.N. ( pt ambulates to restroom. normal gait noted, pt in no obvious distress.). --21:24 Natalya Hdez R.N. 21:50 12/21/2016 Site #1 started via IV in the right antecubital space with an 20g angiocath, with aseptic technique and good blood return; one attempt. Blood drawn: rainbow set. Labeled in the presence of the patient and sent to the lab. Saline lock flushed with 10 mL saline. --21:55 Natalya Hdez R.N. 21:53 12/21/2016 Started bag #1 1000 mL IV Fluids IV NS (Saline); at 1000 mL/hr over 1 hour(s) via site #1 via IV pump. Allergies verified and confirmed 5 rights. IV patency established. IV site checked: no pain, redness, or swelling. IV flushed thoroughly pre- and post-medication administration. --21:56 Natalya Hdez R.N. 21:54 12/21/2016 Zofran (Ondansetron HCl) IVP 4 mg given over 1 minute(s) via site #1. Allergies verified and confirmed 5 rights. IV patency established. IV site checked: no pain, redness, or swelling. IV flushed thoroughly pre- and post-medication administration. IVP given by RN. --21:57 Natalya Hdez R.N. 21:55 12/21/2016 Toradol IVP 30 mg given over 1 minute(s) via site #1. Allergies verified and confirmed 5 rights. IV patency established. IV site checked: no pain, redness, or swelling. IV flushed thoroughly pre- and post-medication administration. IVP given by RN. --21:57 Natalya Hdez R.N. 22:58 12/21/2016 IV Fluids IV NS Discontinued: bag #1 infused. Total amount infused: 1000 mL. IV patency established. IV site checked: no pain, redness, or swelling. IV flushed thoroughly. --22:58 Nano Schwartz R.N. ( Fluids stopped by RN. Joycelyn). --22:59 Nano Schwartz R.N. 23:10 12/21/2016 Morphine IVP 4 mg given over 1 minute(s) via site #1. Allergies verified, confirmed 5 rights and sedative warning given to the patient. IV patency established. IV site checked: no pain, redness, or swelling. IV flushed thoroughly pre- and post-medication administration. IVP given by RN. --23:13 Natalya Hdez R.N. 23:13 12/21/16. BP: 98/48. HR: 79. RR: 15. O2 saturation: 98% on room air. Fernandez-Vyas pain scale: 4/10. --23:14 Natalya Hdez R.N. Patient informed about reason for wait and about plan of care. --00:23 Natalya Hdez R.N. 00:27 12/22/2016 Bentyl (Dicyclomine HCl) PO Tablets 40 mg given. Allergies verified and confirmed 5 rights. --00:29 Natalya Hdez R.N. DISPOSITION / DISCHARGE 01:26 12/22/2016 Site #1 removed upon discharge. Catheter intact. Manual pressure and bandage applied. --01:29 Natalya Hdez R.N. Condition at departure: improved and stable. No learning barriers present. Discharge instructions provided and reviewed with the patient. Reviewed medication(s) side effects, precautions, dosing and course information. Prescription(s) given to the patient. Patient verbalized understanding. Written instructions provided in Maltese. The patient was discharged home and accompanied by research tech. She left the Emergency Department ambulatory and via private vehicle. Director Of Sales Marketing driving. --01:31 Natalya Hdez R.N. 01:29 12/22/16. BP: 99/55. HR: 63. RR: 16. O2 saturation: 99% on room air. Temp: deferred. Fernandez-Vyas pain scale: 2/10. --01:31 Natalya Hdez R.N. Locked/Released at 12/22/2016 1:31 by Natalya Hdez R.N.
--- NOTE | 2016-12-22 01:19 | ED CLINICAL REPORT ---
Clinical Report - Physicians/Mid Levels [facility] [address] [place] [place] [address] 12/21/2016 21:08 Patient: MALCOLM ORLANDO Time Seen: 2120; initial patient contact. Arrived- By private vehicle. Historian- patient. HISTORY OF PRESENT ILLNESS Chief Complaint: ABDOMINAL PAIN. At its maximum, severity described as moderate. When seen in the E.D., severity described as moderate. Modifying factors. Not worsened by anything. Not relieved by anything. It is described as "pain". No radiation. It is described as located in the lower abdomen. The patient has had nausea. No vomiting or diarrhea. Similar symptoms previously: None. Recent medical care: The patient was seen recently in the office. REVIEW OF SYSTEMS No constipation, difficulty with urination, pain with urination, urinary frequency or fever. No headache or chills. All systems otherwise negative, except as recorded above. PAST HISTORY Bronchitis. Headache. Depression. Sinusitis. Pyelonephritis. UTI - Urinary Tract Infection. Adverse Drug Reaction SURGERIES: Cholecystectomy. Hysterectomy. Guadalupe Fundoplasty. Oophorectomy. SOCIAL HISTORY Current every day smoker. Occasional alcohol use. History of drug use: marijuana. ADDITIONAL NOTES The nursing notes have been reviewed with agreement regarding the chief complaint, PMH and patient medications and allergies. PHYSICAL EXAM Vital Signs: 12/21/2016 21:17 BP: 110/56. HR: 74. RR: 15. O2 saturation: 100%. Temp: 98.2 F. Pain level now: 8/10. Have been reviewed. Hypotensive. Heart rate normal. Respiratory rate normal. Temperature normal. Oxygen saturation normal. Appearance: Alert. Oriented X3. No acute distress. Eyes: Eyes normal inspection. No scleral icterus or pale conjunctivae. ENT: Pharynx normal. CVS: Normal heart rate and rhythm. Heart sounds normal. Respiratory: No respiratory distress. Breath sounds normal. Abdomen: Soft. Moderate tenderness in the lower abdomen with guarding present. Positive psoas sign. No rebound tenderness or Diallo's or obturator sign present. Bowel sounds normal. No organomegaly. No mass. Back: Normal inspection. No CVA tenderness. Skin: Normal skin color. No rash. Extremities: No lower extremity edema. Neuro: Oriented X 3. LABS, X-RAYS, AND EKG Abdominal CT: 1. Status post fundoplication. There is a 2.3 cm air and fluid collection near the gastric fundus which could represent a partially unwrapped Guadalupe or gastric diverticulum (may represent incidental finding). 2. Status post cholecystectomy. 3. Normal appendix. 4. Status post hysterectomy. Study type: abdomen and pelvis. Abdominal CT performed with IV contrast. The study was independently viewed by me, interpreted by the radiologist and discussed with the radiologist. Prior studies were not available for comparison. Laboratory Tests: UA-Culture if indicated: (MISBAH: 12/21/2016 21:27) ( [facility] 12/21/2016 22:22) Final results Test Result Flag Units (Reference) URINE COLOR YELLOW URINE APPEARANCE CLEAR URINE GLUCOSE NEGATIVE (NEGATIVE) URINE BILIRUBIN NEGATIVE (NEGATIVE) URINE KETONE NEGATIVE (NEGATIVE) URINE SPECIFIC GRAVITY 1.010 (1.010-1.030) URINE PH 7.5 (5.0-8.0) URINE PROTEIN NEGATIVE (NEGATIVE) URINE UROBILINOGEN 0.2 EU/dL (0.2-1.0) URINE NITRITE NEGATIVE (NEGATIVE) URINE BLOOD NEGATIVE (NEGATIVE) URINE LEUK ESTERASE TRACE (NEGATIVE) URINE RBC 0-1 rbc/hpf (0-1) URINE WBC 1-3 wbc/hpf (0-1) URINE EPITHELIAL CELLS 0-1 EPI/hpf (0-5) URINE BACTERIA NONE SEEN (NONE SEEN) URINE COMMENT CULTURE INDICATED URINE CULTURES ARE SET-UP BASED ON THE FOLLOWING CRITERIA:POSITIVE NITRITEPOSITIVE LEUKOCYTE ESTERASEGREATER THAN 10 WHITE BLOOD CELLSMODERATE (2+) OR GREATER BACTERIA CBC w Diff: (MISBAH: 12/21/2016 21:50) ( [facility] 12/21/2016 22:23) Final results Test Result Flag Units (Reference) WHITE BLOOD COUNT 6.9 K/uL (4.5-11.5) RED BLOOD COUNT 3.76 L M/uL (4.00-5.20) HEMOGLOBIN 12.3 gm/dL (12.0-16.0) HEMATOCRIT 36.2 % (36.0-46.0) MEAN CELL VOLUME 96 fL (80-100) MEAN CORPUSCULAR HGB 33 pg (26-34) MEAN CORPUSCULAR HGB CONC 34 g/dL (31-37) RED CELL DISTRIBUTION WIDTH 12.2 % (11.6-14.8) PLATELET COUNT 322 K/uL (150-400) NEUTROPHIL % 55.3 % (50-75) LYMPH % 34.8 % (25-40) MONO % 5.5 % (3-14) EOSINOPHIL % 4.0 % (0-4) BASOPHIL % 0.4 % (0-2) CMP: (MISBAH: 12/21/2016 21:50) ( MsgRcvd 12/21/2016 22:30) Final results Test Result Flag Units (Reference) GLUCOSE 83 mg/dL (70-110) BUN 11 mg/dL (7-18) CREATININE 0.7 mg/dL (0.6-1.3) Estimated GFR >60 mL/min Estimated GFR- >60 mL/min Note: Persistent reduction over 3 months in eGFR<60 mL/min/1.73 m2 defines CKD. Patients with eGFR values>=60 mL/min/1.73 m2 may also have CKD if evidence ofpersistent proteinuria. Additional information may be foundat www.kidney.org. SODIUM 139 mmol/L (136-145) POTASSIUM 3.8 mmol/L (3.5-5.1) CHLORIDE 102 mmol/L (98-107) CARBON DIOXIDE 26 mmol/L (21-32) CALCIUM 9.1 mg/dL (8.5-10.1) TOTAL PROTEIN 7.5 g/dL (6.4-8.2) ALBUMIN 4.2 g/dL (3.3-5.0) BILIRUBIN, TOTAL 1.0 mg/dL (0.0-1.0) ALKALINE PHOSPHATASE 53 U/L (46-116) AST (SGOT) 14 L U/L (15-37) ALT (SGPT) 17 U/L (12-78) LIPASE 160 U/L (73-393) AMYLASE 73 U/L (25-115) . PROGRESS AND PROCEDURES Course of Care: 22:57 12/21/16. Pain now worse in RLQ. Even though labs were nl, concerns for potential early appy. Also her history reveals substance abuse. Disposition: Discharged home in good and improved condition. Condition: good. CLINICAL IMPRESSION Acute viral gastroenteritis. INSTRUCTIONS Drink plenty of fluids. Your Current Medications: CONTINUE TAKING THE FOLLOWING MEDICATIONS: Abilify Oral : daily, Started: 4 days ago. Prazosin HCl Oral : Started: 4 days ago, to counteract night terrors. Sertraline HCl Oral : 100 mg daily, Started: 4 days ago. TraZODone HCl Oral : 50 mg at bedtime. Vistaril Oral : Capsule 50 mg, 1 capsule PRN, Last: today at 1700. Prescription Medications: Zofran (orally disintegrating tablets) 4 mg: take 1 orally every 6 hours as needed for nausea and vomiting. Dispense ten (10). No refill. Substitution is permissible. Bentyl 20 mg tablets: take 1 orally every 6 hours as needed for abdominal cramps or abdominal discomfort. Dispense thirty (30). No refill. Substitution is permissible. Follow-up: Follow up with your doctor in about two days. Call for an appointment. Screening today revealed the patient's blood pressure to be in the normal range. (Electronically signed by Franklin Quintero Dr. 12/22/2016 1:22)
--- NOTE | 2016-12-22 01:19 | ED NURSING NOTES ---
Clinical Report - Nurses Located Within [facility] [address] [place] [address] 12/21/2016 21:08 Patient: MALCOLM ORLANDO TRIAGE Triage time 21:17. Acuity: LEVEL 3. Chief Complaint: FEVER, CHILLS, WEAKNESS, NAUSEA and ABDOMINAL PAIN. Alert. No acute distress. --21:23 Natalya Hdez R.N. 21:16 12/21/16. BP: 110/56. HR: 74. RR: 15. O2 saturation: 100% on room air. Temp: 98.2 F (oral). Pain level now: 05/19. --21:23 Natalya Hdez R.N. Weight: 63.5 kg stated. Height/Length: 65 inches Per Patient. BMI: 23.3. --21:22 Natalya Hdez R.N. Medications TraZODone HCl Oral 50 mg, at bedtime. --21:18 Natalya Hdez R.N. Sertraline HCl Oral 100 mg, daily, started 4 days ago. --21:19 Natalya Hdez R.N. Abilify Oral, daily, started 4 days ago. --21:20 Natalya Hdez R.N. Prazosin HCl Oral, , to counteract night terrors, started 4 days ago. --21:20 Natalya Hdez R.N. Vistaril Oral (Capsule 50 mg) 1 capsule, PRN, last dose today at 1700. --21:21 Natalya Hdez R.N. Allergies Amoxicillin. Penicillins. --21:21 Natalya Hdez R.N. History Arrived by private vehicle. Historian: patient. Primary physician (Alex ([facility])). Onset. (about 3 days ago). PAST MEDICAL HX: Immunizations: up-to-date. SOCIAL HX: Heavy tobacco smoker (cigarette)- less than 1 pack per day. Occasional alcohol use. History of occasional drug use: marijuana. --21: Natalya Hdez R.N. PROBLEMS: Bronchitis. Headache. Depression. Sinusitis. Pyelonephritis. UTI - Urinary Tract Infection. --: Natalya Hdez R.N. Adverse Drug Reaction [RuleOut]. --21: Natalya Hdez R.N. ADDITIONAL SURGERIES: Cholecystectomy. Hysterectomy. Guadalupe Fundoplasty. Oophorectomy. --21: Natalya Hdez R.N. Interventions ID band on patient. To treatment room. --21:23 Natalya Hdez R.N. PHYSICAL ASSESSMENT Ambulatory to room. GENERAL / NEURO / PSYCH: Alert. Oriented X 4. Appears in no acute distress. HEENT: Mucous membranes are pink. RESPIRATORY: Respirations not labored. CVS: Capillary refill less than 2 seconds. SKIN: Skin is warm and dry. --21:24 Natalya Hdez R.N. NURSING PROGRESS NOTES Head of bed elevated. Two patient identifiers checked. Call light placed in reach. Side rails up x 1. Bed placed in lowest position. Brakes of bed on. --21:24 Natalya Hdez R.N. Patient ready for evaluation- chart flagged. --21:24 Natalya Hdez R.N. ( pt ambulates to restroom. normal gait noted, pt in no obvious distress.). --21:24 Natalya Hdez R.N. 21:50 12/21/2016 Site #1 started via IV in the right antecubital space with an 20g angiocath, with aseptic technique and good blood return; one attempt. Blood drawn: rainbow set. Labeled in the presence of the patient and sent to the lab. Saline lock flushed with 10 mL saline. --21:55 Natalya Hdez R.N. 21:53 12/21/2016 Started bag #1 1000 mL IV Fluids IV NS (Saline); at 1000 mL/hr over 1 hour(s) via site #1 via IV pump. Allergies verified and confirmed 5 rights. IV patency established. IV site checked: no pain, redness, or swelling. IV flushed thoroughly pre- and post-medication administration. --21:56 Natalya Hdez R.N. 21:54 12/21/2016 Zofran (Ondansetron HCl) IVP 4 mg given over 1 minute(s) via site #1. Allergies verified and confirmed 5 rights. IV patency established. IV site checked: no pain, redness, or swelling. IV flushed thoroughly pre- and post-medication administration. IVP given by RN. --21:57 Natalya Hdez R.N. 21:55 12/21/2016 Toradol IVP 30 mg given over 1 minute(s) via site #1. Allergies verified and confirmed 5 rights. IV patency established. IV site checked: no pain, redness, or swelling. IV flushed thoroughly pre- and post-medication administration. IVP given by RN. --21:57 Natalya Hdez R.N. 22:58 12/21/2016 IV Fluids IV NS Discontinued: bag #1 infused. Total amount infused: 1000 mL. IV patency established. IV site checked: no pain, redness, or swelling. IV flushed thoroughly. --22:58 Nano Schwartz R.N. ( Fluids stopped by RN. Joycelyn). --22:59 Nano Schwartz R.N. 23:10 12/21/2016 Morphine IVP 4 mg given over 1 minute(s) via site #1. Allergies verified, confirmed 5 rights and sedative warning given to the patient. IV patency established. IV site checked: no pain, redness, or swelling. IV flushed thoroughly pre- and post-medication administration. IVP given by RN. --23:13 Natalya Hdez R.N. 23:13 12/21/16. BP: 98/48. HR: 79. RR: 15. O2 saturation: 98% on room air. Fernandez-Vyas pain scale: 4/10. --23:14 Natalya Hdez R.N. Patient informed about reason for wait and about plan of care. --00:23 Natalya Hdez R.N. 00:27 12/22/2016 Bentyl (Dicyclomine HCl) PO Tablets 40 mg given. Allergies verified and confirmed 5 rights. --00:29 Natalya Hdez R.N. DISPOSITION / DISCHARGE 01:26 12/22/2016 Site #1 removed upon discharge. Catheter intact. Manual pressure and bandage applied. --01:29 Natalya Hdez R.N. Condition at departure: improved and stable. No learning barriers present. Discharge instructions provided and reviewed with the patient. Reviewed medication(s) side effects, precautions, dosing and course information. Prescription(s) given to the patient. Patient verbalized understanding. Written instructions provided in Prydeinig. The patient was discharged home and accompanied by landfill attendant. She left the Emergency Department ambulatory and via private vehicle. Public Relations Associate driving. --01:31 Natalya Hdez R.N. 01:29 12/22/16. BP: 99/55. HR: 63. RR: 16. O2 saturation: 99% on room air. Temp: deferred. Fernandez-Vyas pain scale: 2/10. --01:31 Natalya Hdez R.N. Locked/Released at 12/22/2016 1:31 by Natalya Hdez R.N.
--- NOTE | 2016-12-22 01:20 | ED ORDER SUMMARY ---
..... Patient: MALCOLM ORLANDO OrderSheet [facility] VisitID: [id number] [address] [place] [address] 26y, F Registration Date/Time: 12/21/2016 ORDER SHEET Weight: 63.5 kg (stated) Allergies: Amoxicillin, Penicillins GENERAL ORDERS: CBC w Diff Urgent (21:41 12/21/2016 John Araujo) (Ack 21:43 SRedmond) (21:57 RCollier R.N.) CMP Urgent (21:41 12/21/2016 John Araujo) (Ack 21:43 SRedmond) (21:57 RCollier R.N.) UA-Culture if indicated Urgent (21:41 12/21/2016 John Araujo) (21:42 SRedmond) Amylase Urgent (21:41 12/21/2016 John Araujo) (Ack 21:43 SRedmond) (21:57 RCollier R.N.) Lipase Urgent (21:41 12/21/2016 John Araujo) (Ack 21:43 SRedmond) (21:57 RCollier R.N.) CT Abd/Pel w Cont (No) (11/0.7) Urgent (22:55 12/21/2016 John Araujo) (Ack 22:58 SRedmond) (23:47 MCampbell) MEDICATION ORDERS: Bentyl PO 40 mg (NOW) (00:23 12/22/2016 John Araujo) (Ack 0:24 RCollier R.N.) (0:29 RCollier R.N.) IV FLUIDS: IV NS : initial bolus none -, then 1000 mL/hr for X1 (NOW) (21:40 12/21/2016 John Araujo) (Ack 21:42 RCollier R.N.) (21:56 RCollier R.N.) Toradol IV 30 mg (NOW) (21:41 12/21/2016 John Araujo) (Ack 21:42 RCollier R.N.) (21:57 RCollier R.N.) Zofran IV 4 mg (NOW) (21:41 12/21/2016 John Araujo) (Ack 21:42 Bridget R.N.) (21:57 Bridget R.N.) Morphine IV 4 mg (HIGH ALERT MEDICATION, NOW) (22:55 12/21/2016 John Araujo) (Ack 23:08 Bridget R.N.) (23:13 Bridget R.N.) ORDER SHEET NOTES: [Electronically signed by Franklin Quintero Dr. (:12/22/2016)] [Electronically signed by Natalya Hdez R.N. (:12/22/2016)] [Electronically locked/signed by Natalya Hdez R.N. (12/22/2016)]
--- NOTE | 2016-12-22 01:20 | ED ORDER SUMMARY ---
..... Patient: MALCOLM ORLANDO OrderSheet [facility] VisitID: [id number] [address] [place] [address] 26y, F Registration Date/Time: 12/21/2016 ORDER SHEET Weight: 63.5 kg (stated) Allergies: Amoxicillin, Penicillins GENERAL ORDERS: CBC w Diff Urgent (21:41 12/21/2016 John Araujo) (Ack 21:43 SRedmond) (21:57 RCollier R.N.) CMP Urgent (21:41 12/21/2016 John Araujo) (Ack 21:43 SRedmond) (21:57 RCollier R.N.) UA-Culture if indicated Urgent (21:41 12/21/2016 John Araujo) (21:42 SRedmond) Amylase Urgent (21:41 12/21/2016 John Araujo) (Ack 21:43 SRedmond) (21:57 RCollier R.N.) Lipase Urgent (21:41 12/21/2016 John Araujo) (Ack 21:43 SRedmond) (21:57 RCollier R.N.) CT Abd/Pel w Cont (No) (11/0.7) Urgent (22:55 12/21/2016 John Araujo) (Ack 22:58 SRedmond) (23:47 MCampbell) MEDICATION ORDERS: Bentyl PO 40 mg (NOW) (00:23 12/22/2016 John Araujo) (Ack 0:24 RCollier R.N.) (0:29 RCollier R.N.) IV FLUIDS: IV NS : initial bolus none -, then 1000 mL/hr for X1 (NOW) (21:40 12/21/2016 Jonh Araujo) (Ack 21:42 RCollier R.N.) (21:56 RCollier R.N.) Toradol IV 30 mg (NOW) (21:41 12/21/2016 John Araujo) (Ack 21:42 RCollier R.N.) (21:57 RCollier R.N.) Zofran IV 4 mg (NOW) (21:41 12/21/2016 John Araujo) (Ack 21:42 Bridget R.N.) (21:57 Bridget R.N.) Morphine IV 4 mg (HIGH ALERT MEDICATION, NOW) (22:55 12/21/2016 John Araujo) (Ack 23:08 Bridget R.N.) (23:13 Bridget R.N.) ORDER SHEET NOTES: [Electronically signed by Franklin Quintero Dr. (:12/22/2016)] [Electronically signed by Natalya Hdez R.N. (:12/22/2016)] [Electronically locked/signed by Natalya Hdez R.N. (12/22/2016)]
--- NOTE | 2016-12-22 01:32 | ED MED RECONCILIATION SUMMARY ---
Patient: MALCOLM ORLANDO Medication Reconciliation Report [facility] VisitID: [id number] [address] [place] [address] 26y, F Registration Date/Time: 12/21/2016 Weight: 63.5 kg Height/Length: 65 in. BMI: 23.3 ALLERGIES: Amoxicillin, Penicillins The patient's Home Medications are listed below: CONTINUE TAKING THE FOLLOWING MEDICATIONS: Abilify Oral, daily Prazosin HCl Oral, to counteract night terrors Sertraline HCl Oral 100 mg, daily TraZODone HCl Oral 50 mg, at bedtime Vistaril Oral (50 mg) 1 capsule, PRN, last dose: today at 1700 The source(s) of the original Home Medication information: Not obtained. The following Medications were given to the patient in the Emergency Department: IV NS IV Fluids bolus 0, then 1000 mL/hr, administered: 12/21/2016 9:53:00 PM Zofran [IVP] IVP 4 mg, administered: 12/21/2016 9:54:00 PM Toradol [IVP] IVP 30 mg, administered: 12/21/2016 9:55:00 PM Morphine [IVP] IVP 4 mg, administered: 12/21/2016 11:10:00 PM Bentyl [PO] PO 40 mg, administered: 12/22/2016 12:27:00 AM The following Medications were prescribed to the patient: Zofran (orally disintegrating tablets) 4 mg: take 1 orally every 6 hours as needed for nausea and vomiting. Dispense ten (10). No refill. Substitution is permissible. -- Franklin Quintero Dr. Bentyl 20 mg tablets: take 1 orally every 6 hours as needed for abdominal cramps or abdominal discomfort. Dispense thirty (30). No refill. Substitution is permissible. -- Franklin Quintero Dr.
--- NOTE | 2016-12-22 01:32 | ED MED RECONCILIATION SUMMARY ---
Patient: MALCOLM ORLANDO Medication Reconciliation Report [facility] VisitID: [id number] [address] [place] [address] 26y, F Registration Date/Time: 12/21/2016 Weight: 63.5 kg Height/Length: 65 in. BMI: 23.3 ALLERGIES: Amoxicillin, Penicillins The patient's Home Medications are listed below: CONTINUE TAKING THE FOLLOWING MEDICATIONS: Abilify Oral, daily Prazosin HCl Oral, to counteract night terrors Sertraline HCl Oral 100 mg, daily TraZODone HCl Oral 50 mg, at bedtime Vistaril Oral (50 mg) 1 capsule, PRN, last dose: today at 1700 The source(s) of the original Home Medication information: Not obtained. The following Medications were given to the patient in the Emergency Department: IV NS IV Fluids bolus 0, then 1000 mL/hr, administered: 12/21/2016 9:53:00 PM Zofran [IVP] IVP 4 mg, administered: 12/21/2016 9:54:00 PM Toradol [IVP] IVP 30 mg, administered: 12/21/2016 9:55:00 PM Morphine [IVP] IVP 4 mg, administered: 12/21/2016 11:10:00 PM Bentyl [PO] PO 40 mg, administered: 12/22/2016 12:27:00 AM The following Medications were prescribed to the patient: Zofran (orally disintegrating tablets) 4 mg: take 1 orally every 6 hours as needed for nausea and vomiting. Dispense ten (10). No refill. Substitution is permissible. -- Franklin Quintero Dr. Bentyl 20 mg tablets: take 1 orally every 6 hours as needed for abdominal cramps or abdominal discomfort. Dispense thirty (30). No refill. Substitution is permissible. -- Franklin Quintero Dr.
--- NOTE | 2016-12-22 01:32 | ED MAR SUMMARY ---
..... Medication Administration Record [facility] [address] [place] [address] Patient: MALCOLM ORLANDO Visit ID: [id number] 26y, F Weight: 63.5 kg Height/Length: 65 in BMI: 23.3 ALLERGIES: Amoxicillin, Penicillins Start 21:53 12/21/2016 Natalya Hdez R.N., Stop 22:58 12/21/2016 Nano Schwartz R.N. Medication Administered: IV NS (SALINE), Dose: IV Fluids over 1 hour(s), Rate: 1000 mL/hr, Dispensed: 1000 mL bag, Site: #1 right AC. Medication Ordered: IV NS : initial bolus none -, then 1000 mL/hr for X1 (NOW). Given 21:54 12/21/2016 Natalya Hdez R.N. Medication Administered: ZOFRAN [IVP] (ONDANSETRON HCL), Dose: 4 mg IVP over 1 minute(s), Site: #1 right AC. Medication Ordered: Zofran IV 4 mg (NOW). Given 21:55 12/21/2016 Natalya Hdez R.N. Medication Administered: TORADOL [IVP], Dose: 30 mg IVP over 1 minute(s), Site: #1 right AC. Medication Ordered: Toradol IV 30 mg (NOW). Given 23:10 12/21/2016 Natalya Hdez R.N. Medication Administered: MORPHINE [IVP], Dose: 4 mg IVP over 1 minute(s), Site: #1 right AC. Medication Ordered: Morphine IV 4 mg (HIGH ALERT MEDICATION, NOW). Given 00:27 12/22/2016 Natalya Hdez R.N. Medication Administered: BENTYL [PO] (DICYCLOMINE HCL), Dose: 40 mg Tablets PO. Medication Ordered: Bentyl PO 40 mg (NOW).
--- NOTE | 2016-12-22 01:32 | ED DISCHARGE INSTRUCTIONS ---
Patient: MALCOLM ORLANDO General Instructions [facility] VisitID: [id number] [place] [address] 26y, F Registration Date/Time: 12/21/2016 Acute viral gastroenteritis. INSTRUCTIONS Drink plenty of fluids. Your Current Medications: CONTINUE TAKING THE FOLLOWING MEDICATIONS: Abilify Oral : daily, Started: 4 days ago. Prazosin HCl Oral : Started: 4 days ago, to counteract night terrors. Sertraline HCl Oral : 100 mg daily, Started: 4 days ago. TraZODone HCl Oral : 50 mg at bedtime. Vistaril Oral : Capsule 50 mg, 1 capsule PRN, Last: today at 1700. Prescription Medications: Zofran (orally disintegrating tablets) 4 mg: take 1 orally every 6 hours as needed for nausea and vomiting. Dispense ten (10). No refill. Substitution is permissible. Bentyl 20 mg tablets: take 1 orally every 6 hours as needed for abdominal cramps or abdominal discomfort. Dispense thirty (30). No refill. Substitution is permissible. Follow-up: Follow up with your doctor in about two days. Call for an appointment. Screening today revealed the patient's blood pressure to be in the normal range. ADDITIONAL INFORMATION Viral Gastroenteritis (6Yr-Adult) Gastroenteritis is another name for thestomach flu.It is most often caused by a virus that affects the stomach and intestinal tract. Symptoms include stomach cramping and fever, vomiting and/or diarrhea, and can last from 2 to 7 days. The danger from repeated vomiting or diarrhea is dehydration. This is the loss of too much water and minerals from the body. When this occurs, body fluids must be replaced. Antibiotics are not effective for this illness, but simple home treatment will be helpful. Home Care If symptoms are severe, rest at home for the next 24 hours. Avoid tobacco, caffeine, and alcohol use, which can worsen symptoms. Acetaminophen (Tylenol) or ibuprofen (Motrin, Advil) may be usedfor fever or pain unless another medication was prescribed. NOTE: If you have chronic liver or kidney disease or ever had a stomach ulcer or GI bleeding, talk with your doctor before using these medicines. Aspirin should never be used in anyone under 18 years of age who is ill with a fever. It may cause severe liver damage. If medicines for diarrhea or vomiting were prescribed, be sure they are takenonly as directed. If vomiting, drink small amounts of clear fluids (such as water, sports drinks, clear sodas) at frequent intervals to prevent dehydration. Start with 1 to 2 tablespoons every 10 minutes. Once vomiting stops, follow these guidelines: During The First 12 To 24 Hours follow the diet below: Beverages: Sport drinks like Gatorade, soft drinks without caffeine; ha juan luis, mineral water (plain or flavored), decaffeinated tea and coffee. Soups: Clear broth, consomm and bouillon Desserts: Plain gelatin (Jell-O), Popsicles and fruit juice bars. During The Next 24 Hours you may add the following to the above: Hot cereal, plain toast, bread, rolls, crackers Plain noodles, rice, mashed potatoes, chicken noodle or rice soup Unsweetened canned fruit (avoid pineapple), bananas Limit fat intake to less than 15 grams per day by avoiding margarine, butter, oils, mayonnaise, sauces, gravies, fried foods, peanut butter, meat, poultry, and fish. Limit fiber; avoid raw or cooked vegetables, fresh fruits (except bananas), and bran cereals. Limit caffeine and chocolate. Do not use spices or seasonings except salt. During The Next 24 Hours The patient can gradually resume a normal diet as symptoms lessen. Preventing Spread Hand washing with soap and water is the best way to prevent the spread of viruses. Caregivers should wash their hands before andafter touching the sick person. The sick person, as well as everyone in the family,should wash their hands after using the toilet and before meals. Clean the toilet after each use. People with diarrhea should not prepare food for others. If you are preparing your own foods, wash your hands before and after. Follow Up with your doctor as advised. Call your doctor if you are not improving over the next 2 to 3 days. If a stool (diarrhea) sample was taken, you may call in 2 days (or as directed) for the results. Get Prompt Medical Attention if any of the following occur: Increasing abdominal pain Continued vomiting (unable to keep liquids down) Frequent diarrhea (more than 5 times a day) Blood in vomit or stool (black or red color) Dark urine, reduced urine output, or extreme thirst Weakness, dizziness, fainting Drowsiness, confusion, stiff neck, or seizure Fever of 100.4F (38C) oral or higher, not better with fever medication New rash Ondansetron Oral disintegrating tablet What is this medicine? ONDANSETRON (on HUA se veronica) is used to treat nausea and vomiting caused by chemotherapy. It is also used to prevent or treat nausea and vomiting after surgery. How should I use this medicine? These tablets are made to dissolve in the mouth. Do not try to push the tablet through the foil backing. With dry hands, peel away the foil backing and gently remove the tablet. Place the tablet in the mouth and allow it to dissolve, then swallow. While you may take these tablets with water, it is not necessary to do so. Talk to your passenger car upholsterer apprentice regarding the use of this medicine in children. Special care may be needed. What side effects may I notice from receiving this medicine? Side effects that you should report to your doctor or health adult live in caregiver as soon as possible: allergic reactions like skin rash, itching or hives, swelling of the face, lips, or tongue breathing problems dizziness fast or irregular heartbeat feeling faint or lightheaded, falls fever and chills swelling of the hands and feet tightness in the chest Side effects that usually do not require medical attention (report to your doctor or health adult live in caregiver if they continue or are bothersome): constipation or diarrhea headache What may interact with this medicine? Do not take this medicine with any of the following medications: -apomorphine -cisapride -dofetilide -dronedarone -pimozide -thioridazine -ziprasidone This medicine may also interact with the following medications: -carbamazepine -phenytoin -rifampicin -tramadol -other medicines that prolong the QT interval (cause an abnormal heart rhythm) What if I miss a dose? If you miss a dose, take it as soon as you can. If it is almost time for your next dose, take only that dose. Do not take double or extra doses. Where should I keep my medicine? Keep out of the reach of children. Store between 2 and 30 degrees C (36 and 86 degrees F). Throw away any unused medicine after the expiration date. What should I tell my health care provider before I take this medicine? They need to know if you have any of these conditions: heart disease history of irregular heartbeat liver disease low levels of magnesium or potassium in the blood an unusual or allergic reaction to ondansetron, granisetron, other medicines, foods, dyes, or preservatives or trying to get breast-feeding What should I watch for while using this medicine? Check with your doctor or health adult live in caregiver as soon as you can if you have any sign of an allergic reaction. Dicyclomine Hydrochloride Oral tablet What is this medicine? DICYCLOMINE (dye KEIRAE fatuma hager) is used to treat bowel problems including irritable bowel syndrome. How should I use this medicine? Take this medicine by mouth with a glass of water. Follow the directions on the prescription label. It is best to take this medicine on an empty stomach, 30 minutes to 1 hour before meals. Take your medicine at regular intervals. Do not take your medicine more often than directed. Talk to your passenger car upholsterer apprentice regarding the use of this medicine in children. Special care may be needed. While this drug may be prescribed for children as young as 6 months of age for selected conditions, precautions do apply. Patients over 65 years old may have a stronger reaction and need a smaller dose. What side effects may I notice from receiving this medicine? Side effects that you should report to your doctor or health adult live in caregiver as soon as possible: agitation, nervousness, confusion difficulty swallowing dizziness, drowsiness fast or slow heartbeat hallucinations pain or difficulty passing urine Side effects that usually do not require medical attention (report to your doctor or health adult live in caregiver if they continue or are bothersome): constipation headache nausea or vomiting sexual difficulty What may interact with this medicine? amantadine antacids benztropine digoxin disopyramide medicines for allergies, colds and breathing difficulties medicines for alzheimer's disease medicines for anxiety or sleeping problems medicines for depression or psychotic disturbances medicines for diarrhea medicines for pain metoclopramide tegaserod What if I miss a dose? If you miss a dose, take it as soon as you can. If it is almost time for your next dose, take only that dose. Do not take double or extra doses. Where should I keep my medicine? Keep out of the reach of children. Store at room temperature below 30 degrees C (86 degrees F). Protect from light. Throw away any unused medicine after the expiration date. What should I tell my health care provider before I take this medicine? They need to know if you have any of these conditions: difficulty passing urine esophagus problems or heartburn glaucoma heart disease, or previous heart attack myasthenia gravis prostate trouble stomach infection, or obstruction ulcerative colitis an unusual or allergic reaction to dicyclomine, other medicines, foods, dyes, or preservatives or trying to get breast-feeding What should I watch for while using this medicine? You may get drowsy, dizzy, or have blurred vision. Do not drive, use machinery, or do anything that needs mental alertness until you know how this medicine affects you. To reduce the risk of dizzy or fainting spells, do not sit or stand up quickly, especially if you are an older patient. Alcohol can make you more drowsy, avoid alcoholic drinks. Stay out of bright light and wear sunglasses if this medicine makes your eyes more sensitive to light. Avoid extreme heat (hot tubs, saunas). This medicine can cause you to sweat less than normal. Your body temperature could increase to dangerous levels, which may lead to heat stroke. Antacids can stop this medicine from working. If you get an upset stomach and want to take an antacid, make sure there is an interval of at least 1 to 2 hours before or after you take this medicine. Your mouth may get dry. Chewing sugarless gum or sucking hard candy, and drinking plenty of water may help. Contact your doctor if the problem does not go away or is severe. You have been given the following additional information: Gastroenteritis, Viral (6Y-Adult) Ondansetron Oral disintegrating tablet Dicyclomine Hydrochloride Oral tablet (Electronically signed by Franklin Quintero Dr. 12/22/2016 1:22)
--- NOTE | 2016-12-22 01:32 | ED MAR SUMMARY ---
..... Medication Administration Record [facility] [address] [place] [address] Patient: MALCOLM ORLANDO Visit ID: [id number] 26y, F Weight: 63.5 kg Height/Length: 65 in BMI: 23.3 ALLERGIES: Amoxicillin, Penicillins Start 21:53 12/21/2016 Natalya Hdez R.N., Stop 22:58 12/21/2016 Nano Schwartz R.N. Medication Administered: IV NS (SALINE), Dose: IV Fluids over 1 hour(s), Rate: 1000 mL/hr, Dispensed: 1000 mL bag, Site: #1 right AC. Medication Ordered: IV NS : initial bolus none -, then 1000 mL/hr for X1 (NOW). Given 21:54 12/21/2016 Natalya Hdez R.N. Medication Administered: ZOFRAN [IVP] (ONDANSETRON HCL), Dose: 4 mg IVP over 1 minute(s), Site: #1 right AC. Medication Ordered: Zofran IV 4 mg (NOW). Given 21:55 12/21/2016 Natalya Hdez R.N. Medication Administered: TORADOL [IVP], Dose: 30 mg IVP over 1 minute(s), Site: #1 right AC. Medication Ordered: Toradol IV 30 mg (NOW). Given 23:10 12/21/2016 Natalya Hdez R.N. Medication Administered: MORPHINE [IVP], Dose: 4 mg IVP over 1 minute(s), Site: #1 right AC. Medication Ordered: Morphine IV 4 mg (HIGH ALERT MEDICATION, NOW). Given 00:27 12/22/2016 Natalya Hdez R.N. Medication Administered: BENTYL [PO] (DICYCLOMINE HCL), Dose: 40 mg Tablets PO. Medication Ordered: Bentyl PO 40 mg (NOW).
== END 2016-12-22 01:28 | disposition home or self-care (01) ==
LOC: ED SRH 21:08
DX: A08.4 Viral intestinal infection, unspecified (principal); Z79.899 Other long term (current) drug therapy; Z88.0 Allergy status to penicillin; Z90.710 Acquired absence of both cervix and uterus
CPT/HCPCS: 90004; 90100; 90469; 92235; 92530; 95059

== ENCOUNTER 2016-12-22 21:00 | Emergency (ER) | payer OTHER ==
--- NOTE | 2016-12-23 00:48 | ED NURSING NOTES ---
Clinical Report - Nurses [facility] [address] [place] [address] 12/22/2016 21:00 [id number] Triage time 21:05. Acuity: LEVEL 4. Chief Complaint: CHILLS, MUSCLE ACHES, FAINTING, WEAKNESS, NAUSEA, VOMITING and DIARRHEA. Alert. --21:14 Sheriff Blount R.N. 21:05 12/22/16. BP: 115/67. HR: 109. RR: 18. O2 saturation: 98%. Temp: 98.4 F. Pain level now: 04/18. --21:14 Sheriff Blount R.N. 21:05 12/22/16. BP: 115/67. HR: 109. RR: 18. O2 saturation: 98%. Temp: 98.4 F. Pain level now: 04/18. --21:15 Sheriff Blount R.N. Weight: 63.5 kg. Height/Length: 65 inches. BMI: 23.3. --21:04 Sheriff Blount R.N. Medications Abilify Oral, daily, started 4 days ago. Prazosin HCl Oral, , to counteract night terrors, started 4 days ago. Sertraline HCl Oral 100 mg, daily, started 4 days ago. TraZODone HCl Oral 50 mg, at bedtime. Vistaril Oral (Capsule 50 mg) 1 capsule, PRN, last dose today at 1700. --21:09 Sheriff Blount R.N. Abilify Oral, daily, started 4 days ago. --21:09 Sheriff Blount R.N. Abilify Oral, daily, started 4 days ago. --21:09 Sheriff Blount R.N. Allergies Amoxicillin. Penicillins. --21:09 Sheriff Blount R.N. History Historian: patient. Arrived walking from home. This is a recurrent problem. (4 days, was here yesterday). SOCIAL HX: Light tobacco smoker- less than 1/2 a pack per day. Occasional alcohol use. History of drug use: marijuana. FALL RISK ASSESSMENT: Fall risk assessment completed. No fall risk identified. NUTRITIONAL RISK ASSESSMENT: The nutritional risk assessment revealed no deficiencies. FUNCTIONAL ASSESSMENT: Functional assessment: no impairments noted. LEARNING NEEDS ASSESSMENT: The learning needs assessment revealed no barriers. --21:14 Sheriff Blount R.N. Interventions ID band on patient. To room. --21:14 Sheriff Blount R.N. PHYSICAL ASSESSMENT GENERAL / NEURO / PSYCH: Alert. Oriented X 4. HEENT: Pupils equal, round and reactive to light. RESPIRATORY: Respirations not labored. CVS: Capillary refill less than 2 seconds. Pulses within normal limits. SKIN: Skin is warm and dry. --21:15 Sheriff Blount R.N. NURSING PROGRESS NOTES Head of bed elevated. Patient identifiers checked. Call light placed in reach. Side rails up x 2. Bed placed in lowest position. Brakes of bed on. --21:16 Sheriff Blount R.N. 21:36 12/22/2016 Site #1 started via IV in the left antecubital space with an 20g angiocath, with aseptic technique and good blood return; one attempt. Blood drawn: rainbow set. Labeled in the presence of the patient and sent to the lab. Saline lock flushed with 10 mL saline. --21:36 Sheriff Blount R.N. 21:37 12/22/2016 Started bag #1 1000 mL IV Fluids IV NS (Saline); at 999 mL/hr via site #1. Allergies verified and confirmed 5 rights. IV patency established. IV site checked: no pain, redness, or swelling. IV flushed thoroughly pre- and post-medication administration. --21:37 Sheriff Blount R.N. 21:43 12/22/2016 Zofran (Ondansetron HCl) IVP 4 mg given over 1 minute(s) via site #1. Allergies verified and confirmed 5 rights. IV patency established site checked: no pain, redness, or swelling flushed thoroughly pre- and post-medication administration. IVP given by RN. --21:43 Sheriff Blount R.N. 22:13 12/22/2016 IV Fluids IV NS Discontinued: bag #1 infused upon arrival. Total amount infused: 1000 mL. IV patency established IV site checked: no pain, redness, or swelling IV flushed thoroughly. --22:18 Sheriff Blount R.N. 22:17 12/22/2016 Demerol (Meperidine HCl) IVP 25 mg given over 1 minute(s) via site #1. Allergies verified and confirmed 5 rights. IV patency established site checked: no pain, redness, or swelling flushed thoroughly pre- and post-medication administration. IVP given by RN. --22:17 Sheriff Blount R.N. 23:24 12/22/2016 Toradol IVP 30 mg given over 1 minute(s) via site #1. Allergies verified and confirmed 5 rights. IV patency established site checked: no pain, redness, or swelling flushed thoroughly pre- and post-medication administration. IVP given by RN. --23:24 Sheriff Blount R.N. 23:27 12/22/16. BP: 98/40. HR: 79. RR: 16. O2 saturation: 100%. Temp: 97.9 F. Pain level now: 02/16. --23:28 Sheriff Blount R.N. 21:05 12/22/16. BP: 115/67. HR: 109. RR: 18. O2 saturation: 98%. Temp: 98.4 F. Pain level now: 04/18. --23:28 Sheriff Blount R.N. The patient is calm. Overall patient status- she states feels better. RESPIRATORY: No respiratory distress. --23:46 Sheriff Blount R.N. DISPOSITION / DISCHARGE Condition at departure: stable. No learning barriers present. Discharge instructions provided and reviewed with the patient. Reviewed medication(s) side effects, precautions, dosing and course information. Prescription(s) given to the patient. Patient verbalized understanding. Written instructions provided in Armenian. The patient was discharged home and unaccompanied at time of discharge. She left the Emergency Department ambulatory and via private vehicle. Patient driving. FALL RISK ASSESSMENT: Fall risk assessment completed. No fall risk identified. --01:04 Sheriff Blount R.N. 01:02 12/23/16. BP: 94/46. HR: 64. RR: 18. O2 saturation: 98%. Temp: 98.2 F. Pain level now: 01/17. --01:04 Sheriff Blount R.N. Locked/Released at 12/23/2016 1:11 by Sheriff Blount R.N.
--- NOTE | 2016-12-23 00:48 | ED CLINICAL REPORT ---
Clinical Report - Physicians/Mid Levels [facility] [address] [place] [address] 12/22/2016 21:00 Patient: MALCOLM ORLANDO Time Seen: 21:08; initial patient contact. Arrived- By private vehicle. Historian- patient. RETURN VISIT: recently seen in this ED by me. Seen now for the same problem as before. HISTORY OF PRESENT ILLNESS Chief Complaint: TWO SYNCOPAL EPISODES. Is no longer unconscious. She recovered at the scene. This occurred today. It was abrupt in onset. The patient felt faint and collapsed. No seizure activity, incontinence or apnea noted. The patient had preceding symptoms of light-headedness and nausea. No injuries noted. She currently has weakness. Currently has nausea. Similar symptoms previously: None. Recent medical care: The patient was seen recently at this facility in the emergency department. REVIEW OF SYSTEMS No abdominal pain or fever. She has had vomiting and diarrhea. All systems otherwise negative, except as recorded above. PAST HISTORY ( Bronchitis. Headache. Depression. Sinusitis. Pyelonephritis. UTI - Urinary Tract Infection. Adverse Drug Reaction SURGERIES: Cholecystectomy. Hysterectomy. Guadalupe Fundoplasty. Oophorectomy.). SOCIAL HISTORY Current every day smoker. Occasional alcohol use. History of drug use: marijuana. PHYSICAL EXAM Appearance: Alert. No acute distress. ENT: Normal ENT inspection. Dry mucous membranes present. CVS: Normal heart rate and rhythm. Heart sounds normal. Respiratory: No respiratory distress. Breath sounds normal. Abdomen: Soft. Mild tenderness diffusely with guarding present. No rebound tenderness or Diallo's, obturator or psoas sign present. No organomegaly. Back: Normal inspection. No CVA tenderness. Skin: Normal skin color. No rash. Extremities: No lower extremity edema. Neuro: Alert. Oriented X 3. Mood/affect normal. Speech normal. No motor deficit. LABS, X-RAYS, AND EKG Laboratory Tests: UA-Culture if indicated: (MISBAH: 12/22/2016 22:24) ( MsgRcvd 12/22/2016 22:46) Final results Test Result Flag Units (Reference) URINE COLOR YELLOW URINE APPEARANCE CLEAR URINE GLUCOSE NEGATIVE (NEGATIVE) URINE BILIRUBIN NEGATIVE (NEGATIVE) URINE KETONE NEGATIVE (NEGATIVE) URINE SPECIFIC GRAVITY 1.020 (1.010-1.030) URINE PH 6.0 (5.0-8.0) URINE PROTEIN NEGATIVE (NEGATIVE) URINE UROBILINOGEN 0.2 EU/dL (0.2-1.0) URINE NITRITE NEGATIVE (NEGATIVE) URINE BLOOD NEGATIVE (NEGATIVE) URINE LEUK ESTERASE POSITIVE (NEGATIVE) URINE RBC NONE SEEN rbc/hpf (0-1) URINE WBC 3-5 wbc/hpf (0-1) URINE EPITHELIAL CELLS 3-5 EPI/hpf (0-5) URINE BACTERIA NONE SEEN (NONE SEEN) URINE COMMENT CULT NOT INDICATED URINE CULTURES ARE SET-UP BASED ON THE FOLLOWING CRITERIA:POSITIVE NITRITEPOSITIVE LEUKOCYTE ESTERASEGREATER THAN 10 WHITE BLOOD CELLSMODERATE (2+) OR GREATER BACTERIA CBC w Diff: (MISBAH: 12/22/2016 21:28) ( [facility] 12/22/2016 21:50) Final results Test Result Flag Units (Reference) WHITE BLOOD COUNT 6.3 K/uL (4.5-11.5) RED BLOOD COUNT 3.56 L M/uL (4.00-5.20) HEMOGLOBIN 11.7 L gm/dL (12.0-16.0) HEMATOCRIT 34.2 L % (36.0-46.0) MEAN CELL VOLUME 96 fL (80-100) MEAN CORPUSCULAR HGB 33 pg (26-34) MEAN CORPUSCULAR HGB CONC 34 g/dL (31-37) RED CELL DISTRIBUTION WIDTH 12.3 % (11.6-14.8) PLATELET COUNT 320 K/uL (150-400) NEUTROPHIL % 55.9 % (50-75) LYMPH % 32.9 % (25-40) MONO % 5.6 % (3-14) EOSINOPHIL % 5.0 H % (0-4) BASOPHIL % 0.6 % (0-2) CMP: (MISBAH: 12/22/2016 21:28) ( [facility] 12/22/2016 22:11) Final results Test Result Flag Units (Reference) GLUCOSE 83 mg/dL (70-110) BUN 14 mg/dL (7-18) CREATININE 0.7 mg/dL (0.6-1.3) Estimated GFR >60 mL/min Estimated GFR- >60 mL/min Note: Persistent reduction over 3 months in eGFR<60 mL/min/1.73 m2 defines CKD. Patients with eGFR values>=60 mL/min/1.73 m2 may also have CKD if evidence ofpersistent proteinuria. Additional information may be foundat www.kidney.org. SODIUM 140 mmol/L (136-145) POTASSIUM 3.8 mmol/L (3.5-5.1) CHLORIDE 104 mmol/L (98-107) CARBON DIOXIDE 26 mmol/L (21-32) CALCIUM 8.9 mg/dL (8.5-10.1) TOTAL PROTEIN 7.5 g/dL (6.4-8.2) ALBUMIN 4.2 g/dL (3.3-5.0) BILIRUBIN, TOTAL 0.6 mg/dL (0.0-1.0) ALKALINE PHOSPHATASE 53 U/L (46-116) AST (SGOT) 14 L U/L (15-37) ALT (SGPT) 17 U/L (12-78) LIPASE 205 U/L (73-393) AMYLASE 78 U/L (25-115) . PROGRESS AND PROCEDURES Disposition: Discharged home in good and improved condition. Condition: good. CLINICAL IMPRESSION Syncope of unknown cause. INSTRUCTIONS Drink plenty of fluids. Your Current Medications: STOP TAKING THE FOLLOWING MEDICATIONS: Abilify Oral : daily, Started: 4 days ago. Abilify Oral : daily, Started: 4 days ago. Abilify Oral : daily, Started: 4 days ago. CHANGE THE FOLLOWING MEDICATIONS TO: Sertraline HCl Oral : 100 mg daily, Started: 4 days ago, Change to 1/2 tab daily. CONTINUE TAKING THE FOLLOWING MEDICATIONS: Prazosin HCl Oral : Started: 4 days ago, to counteract night terrors. Prescription Medications: Hydrocodone/APAP 5mg / 325mg: take 1 orally every 6 hours as needed for pain. Dispense ten (10). No refill. Follow-up: Follow up with your doctor tomorrow. Screening today revealed the patient's blood pressure to be in the normal range. (Electronically signed by Franklin Quintero Dr. 12/23/2016 0:49)
--- NOTE | 2016-12-23 00:48 | ED ORDER SUMMARY ---
..... Patient: MALCOLM ORLANDO OrderSheet [facility] VisitID: [id number] [place] [address] 26y, F Registration Date/Time: 12/22/2016 ORDER SHEET Weight: 63.5 kg Allergies: Amoxicillin, Penicillins GENERAL ORDERS: CBC w Diff Urgent (21:12/22/2016 John Araujo) (Ack 21:11 ALawrence ER Tech1) (21:37 AMcQuoid ER Tech1) CMP Urgent (21:12/22/2016 John Araujo) (Ack 21:11 ALawrence ER Tech1) (21:37 AMcQuoid ER Tech1) UA-Culture if indicated Urgent (21:12/22/2016 Jhon Araujo) (Ack 21:11 ALawrence ER Tech1) (22:29 SSambou R.N.) Urine Urgent (21:12/22/2016 John Araujo) (Cancelled: Physician Order21:10 John Araujo) (Ack 21:11 ALawrence ER Tech1) Amylase Urgent (21:12/22/2016 John Araujo) (Ack 21:11 ALawrence ER Tech1) (21:37 AMcQuoid ER Tech1) Lipase Urgent (21:12/22/2016 John Araujo) (Ack 21:11 ALawrence ER Tech1) (21:37 AMcQuoid ER Tech1) MEDICATION ORDERS: IV FLUIDS: IV NS : initial bolus none -, then 1000 mL/hr for X1 (NOW) (21:12/22/2016 John Araujo) (21:37 SSambou R.N.) Zofran IV 4 mg (NOW) (21:12/22/2016 John Araujo) (Ack 21:37 SSambou R.N.) (21:43 SSambou R.N.) Demerol IV 25 mg (HIGH ALERT MEDICATION, NOW) (22:08 12/22/2016 John Araujo) (22:17 SSambabraham R.N.) Toradol IV 30 mg (NOW) (23:18 12/22/2016 John Araujo) (23:24 Kylie Yañez) ORDER SHEET NOTES: [Electronically signed by Franklin Quintero Dr. (00:49 12/23/2016)] [Electronically signed by Sheriff Pari Blount (01:11 12/23/2016)] [Electronically locked/signed by Sheriff Pari Blount (01:11 12/23/2016)]
--- NOTE | 2016-12-23 00:48 | ED ORDER SUMMARY ---
..... Patient: MALCOLM ORLANDO OrderSheet [facility] VisitID: [id number] [place] [address] 26y, F Registration Date/Time: 12/22/2016 ORDER SHEET Weight: 63.5 kg Allergies: Amoxicillin, Penicillins GENERAL ORDERS: CBC w Diff Urgent (21:12/22/2016 John Araujo) (Ack 21:11 ALawrence ER Tech1) (21:37 AMcQuoid ER Tech1) CMP Urgent (21:12/22/2016 John Araujo) (Ack 21:11 ALawrence ER Tech1) (21:37 AMcQuoid ER Tech1) UA-Culture if indicated Urgent (21:12/22/2016 John Araujo) (Ack 21:11 ALawrence ER Tech1) (22:29 SSambou R.N.) Urine Urgent (21:12/22/2016 John Araujo) (Cancelled: Physician Order21:10 John Araujo) (Ack 21:11 ALawrence ER Tech1) Amylase Urgent (21:12/22/2016 John Araujo) (Ack 21:11 ALawrence ER Tech1) (21:37 AMcQuoid ER Tech1) Lipase Urgent (21:12/22/2016 John Araujo) (Ack 21:11 ALawrence ER Tech1) (21:37 AMcQuoid ER Tech1) MEDICATION ORDERS: IV FLUIDS: IV NS : initial bolus none -, then 1000 mL/hr for X1 (NOW) (21:12/22/2016 John Araujo) (21:37 SSambou R.N.) Zofran IV 4 mg (NOW) (21:12/22/2016 John Araujo) (Ack 21:37 SSambou R.N.) (21:43 SSambou R.N.) Demerol IV 25 mg (HIGH ALERT MEDICATION, NOW) (22:08 12/22/2016 John Araujo) (22:17 SSambabraham R.N.) Toradol IV 30 mg (NOW) (23:18 12/22/2016 John Araujo) (23:24 Kylie Yañez) ORDER SHEET NOTES: [Electronically signed by Franklin Quintero Dr. (00:49 12/23/2016)] [Electronically signed by Sheriff Pari Blount (01:11 12/23/2016)] [Electronically locked/signed by Sheriff Pari Blount (01:11 12/23/2016)]
--- NOTE | 2016-12-23 00:48 | ED CLINICAL REPORT ---
Clinical Report - Physicians/Mid Levels [facility] [address] [place] [address] 12/22/2016 21:00 Patient: MALCOLM ORLANDO Time Seen: 21:08; initial patient contact. Arrived- By private vehicle. Historian- patient. RETURN VISIT: recently seen in this ED by me. Seen now for the same problem as before. HISTORY OF PRESENT ILLNESS Chief Complaint: TWO SYNCOPAL EPISODES. Is no longer unconscious. She recovered at the scene. This occurred today. It was abrupt in onset. The patient felt faint and collapsed. No seizure activity, incontinence or apnea noted. The patient had preceding symptoms of light-headedness and nausea. No injuries noted. She currently has weakness. Currently has nausea. Similar symptoms previously: None. Recent medical care: The patient was seen recently at this facility in the emergency department. REVIEW OF SYSTEMS No abdominal pain or fever. She has had vomiting and diarrhea. All systems otherwise negative, except as recorded above. PAST HISTORY ( Bronchitis. Headache. Depression. Sinusitis. Pyelonephritis. UTI - Urinary Tract Infection. Adverse Drug Reaction SURGERIES: Cholecystectomy. Hysterectomy. Guadalupe Fundoplasty. Oophorectomy.). SOCIAL HISTORY Current every day smoker. Occasional alcohol use. History of drug use: marijuana. PHYSICAL EXAM Appearance: Alert. No acute distress. ENT: Normal ENT inspection. Dry mucous membranes present. CVS: Normal heart rate and rhythm. Heart sounds normal. Respiratory: No respiratory distress. Breath sounds normal. Abdomen: Soft. Mild tenderness diffusely with guarding present. No rebound tenderness or Diallo's, obturator or psoas sign present. No organomegaly. Back: Normal inspection. No CVA tenderness. Skin: Normal skin color. No rash. Extremities: No lower extremity edema. Neuro: Alert. Oriented X 3. Mood/affect normal. Speech normal. No motor deficit. LABS, X-RAYS, AND EKG Laboratory Tests: UA-Culture if indicated: (MISBAH: 12/22/2016 22:24) ( MsgRcvd 12/22/2016 22:46) Final results Test Result Flag Units (Reference) URINE COLOR YELLOW URINE APPEARANCE CLEAR URINE GLUCOSE NEGATIVE (NEGATIVE) URINE BILIRUBIN NEGATIVE (NEGATIVE) URINE KETONE NEGATIVE (NEGATIVE) URINE SPECIFIC GRAVITY 1.020 (1.010-1.030) URINE PH 6.0 (5.0-8.0) URINE PROTEIN NEGATIVE (NEGATIVE) URINE UROBILINOGEN 0.2 EU/dL (0.2-1.0) URINE NITRITE NEGATIVE (NEGATIVE) URINE BLOOD NEGATIVE (NEGATIVE) URINE LEUK ESTERASE POSITIVE (NEGATIVE) URINE RBC NONE SEEN rbc/hpf (0-1) URINE WBC 3-5 wbc/hpf (0-1) URINE EPITHELIAL CELLS 3-5 EPI/hpf (0-5) URINE BACTERIA NONE SEEN (NONE SEEN) URINE COMMENT CULT NOT INDICATED URINE CULTURES ARE SET-UP BASED ON THE FOLLOWING CRITERIA:POSITIVE NITRITEPOSITIVE LEUKOCYTE ESTERASEGREATER THAN 10 WHITE BLOOD CELLSMODERATE (2+) OR GREATER BACTERIA CBC w Diff: (MISBAH: 12/22/2016 21:28) ( [facility] 12/22/2016 21:50) Final results Test Result Flag Units (Reference) WHITE BLOOD COUNT 6.3 K/uL (4.5-11.5) RED BLOOD COUNT 3.56 L M/uL (4.00-5.20) HEMOGLOBIN 11.7 L gm/dL (12.0-16.0) HEMATOCRIT 34.2 L % (36.0-46.0) MEAN CELL VOLUME 96 fL (80-100) MEAN CORPUSCULAR HGB 33 pg (26-34) MEAN CORPUSCULAR HGB CONC 34 g/dL (31-37) RED CELL DISTRIBUTION WIDTH 12.3 % (11.6-14.8) PLATELET COUNT 320 K/uL (150-400) NEUTROPHIL % 55.9 % (50-75) LYMPH % 32.9 % (25-40) MONO % 5.6 % (3-14) EOSINOPHIL % 5.0 H % (0-4) BASOPHIL % 0.6 % (0-2) CMP: (MISBAH: 12/22/2016 21:28) ( [facility] 12/22/2016 22:11) Final results Test Result Flag Units (Reference) GLUCOSE 83 mg/dL (70-110) BUN 14 mg/dL (7-18) CREATININE 0.7 mg/dL (0.6-1.3) Estimated GFR >60 mL/min Estimated GFR- >60 mL/min Note: Persistent reduction over 3 months in eGFR<60 mL/min/1.73 m2 defines CKD. Patients with eGFR values>=60 mL/min/1.73 m2 may also have CKD if evidence ofpersistent proteinuria. Additional information may be foundat www.kidney.org. SODIUM 140 mmol/L (136-145) POTASSIUM 3.8 mmol/L (3.5-5.1) CHLORIDE 104 mmol/L (98-107) CARBON DIOXIDE 26 mmol/L (21-32) CALCIUM 8.9 mg/dL (8.5-10.1) TOTAL PROTEIN 7.5 g/dL (6.4-8.2) ALBUMIN 4.2 g/dL (3.3-5.0) BILIRUBIN, TOTAL 0.6 mg/dL (0.0-1.0) ALKALINE PHOSPHATASE 53 U/L (46-116) AST (SGOT) 14 L U/L (15-37) ALT (SGPT) 17 U/L (12-78) LIPASE 205 U/L (73-393) AMYLASE 78 U/L (25-115) . PROGRESS AND PROCEDURES Disposition: Discharged home in good and improved condition. Condition: good. CLINICAL IMPRESSION Syncope of unknown cause. INSTRUCTIONS Drink plenty of fluids. Your Current Medications: STOP TAKING THE FOLLOWING MEDICATIONS: Abilify Oral : daily, Started: 4 days ago. Abilify Oral : daily, Started: 4 days ago. Abilify Oral : daily, Started: 4 days ago. CHANGE THE FOLLOWING MEDICATIONS TO: Sertraline HCl Oral : 100 mg daily, Started: 4 days ago, Change to 1/2 tab daily. CONTINUE TAKING THE FOLLOWING MEDICATIONS: Prazosin HCl Oral : Started: 4 days ago, to counteract night terrors. Prescription Medications: Hydrocodone/APAP 5mg / 325mg: take 1 orally every 6 hours as needed for pain. Dispense ten (10). No refill. Follow-up: Follow up with your doctor tomorrow. Screening today revealed the patient's blood pressure to be in the normal range. (Electronically signed by Franklin Quintero Dr. 12/23/2016 0:49)
--- NOTE | 2016-12-23 01:15 | ED MAR SUMMARY ---
..... Medication Administration Record [facility] [address] [place] [address] Patient: MALCOLM ORLANDO Visit ID: [id number] 26y, F Weight: 63.5 kg Height/Length: 65 in BMI: 23.3 ALLERGIES: Amoxicillin, Penicillins Start 21:37 12/22/2016 Sheriff Blount R.N., Stop 22:13 12/22/2016 Sheriff Blount R.N. Medication Administered: IV NS (SALINE), Dose: IV Fluids, Rate: 999 mL/hr, Dispensed: 1000 mL bag, Site: #1 left AC. Medication Ordered: IV NS : initial bolus none -, then 1000 mL/hr for X1 (NOW). Given 21:43 12/22/2016 Sheriff Blount R.N. Medication Administered: ZOFRAN [IVP] (ONDANSETRON HCL), Dose: 4 mg IVP over 1 minute(s), Site: #1 left AC. Medication Ordered: Zofran IV 4 mg (NOW). Given 22:17 12/22/2016 Sheriff Blount R.N. Medication Administered: DEMEROL [IVP] (MEPERIDINE HCL), Dose: 25 mg IVP over 1 minute(s), Site: #1 left AC. Medication Ordered: Demerol IV 25 mg (HIGH ALERT MEDICATION, NOW). Given 23:24 12/22/2016 Sheriff Blount R.N. Medication Administered: TORADOL [IVP], Dose: 30 mg IVP over 1 minute(s), Site: #1 left AC. Medication Ordered: Toradol IV 30 mg (NOW).
--- NOTE | 2016-12-23 01:15 | ED DISCHARGE INSTRUCTIONS ---
Patient: MALCOLM ORLANDO General Instructions [facility] VisitID: [id number] [place] [address] 26y, F Registration Date/Time: 12/22/2016 Syncope of unknown cause. INSTRUCTIONS Drink plenty of fluids. Your Current Medications: STOP TAKING THE FOLLOWING MEDICATIONS: Abilify Oral : daily, Started: 4 days ago. Abilify Oral : daily, Started: 4 days ago. Abilify Oral : daily, Started: 4 days ago. CHANGE THE FOLLOWING MEDICATIONS TO: Sertraline HCl Oral : 100 mg daily, Started: 4 days ago, Change to 1/2 tab daily. CONTINUE TAKING THE FOLLOWING MEDICATIONS: Prazosin HCl Oral : Started: 4 days ago, to counteract night terrors. Prescription Medications: Hydrocodone/APAP 5mg / 325mg: take 1 orally every 6 hours as needed for pain. Dispense ten (10). No refill. Follow-up: Follow up with your doctor tomorrow. Screening today revealed the patient's blood pressure to be in the normal range. ADDITIONAL INFORMATION Fainting:Uncertain Cause Fainting (syncope) is a temporary loss of consciousness ("passing out"). It occurs when blood flow to the brain is reduced. Near-fainting ("near-syncope") is very similar to fainting, but you do not fully "pass out". The common minor causes of fainting include: sudden fear, pain, nausea, emotional stress and overexertion. Suddenly standing up after sitting or lying for a long time can also cause fainting. The more serious causes for fainting are due to either a very slow or very fast or very slow heart beat ("arrhythmia"), other types of heart disease, dehydration, blood loss, seizure, stroke or ruptured blood vessel in the brain. Taking too much high blood pressure medicine can also cause low blood pressure and fainting. The exact cause of your episode is not certain. However, the tests today did not show any of the serious causes of fainting. Sometimes further testing is needed to find out if a serious problem exists. Therefore, it is important that you follow-up with your doctor as advised. Home Care: 1) Rest today. You may resume your normal activities when you are feeling back to normal. It is best to remain with someone who can check on you for the next 24 hours to watch for another episode of fainting. 2) If you become light-headed or dizzy, lie down immediately or sit with your head between your knees. 3) Because we do not know the exact cause of your near fainting spell, it is possible for another spell to occur without warning. Therefore, do not drive a car or operate dangerous equipment, do not take a bath alone (use a shower instead) and do not swim alone until your doctor says that you are no longer in danger of having another fainting spell. Follow Up with your doctor as advised. Get Prompt Medical Attention if any of the following occur: -- Another fainting spell occurs, which is not explained by the common causes listed above -- Chest, arm, neck, jaw, back or abdominal pain -- Shortness of breath -- Severe headache or seizure -- Blood in vomit, stools (black or red color) -- Unexpected vaginal bleeding -- Palpitations (very rapid or very slow or irregular heart beat) -- Signs of stroke: Weakness of an arm or leg or one side of the face Difficulty with speech or vision Extreme drowsiness, confusion, dizziness or fainting Hydrocodone Bitartrate, Acetaminophen Oral tablet What is this medicine? ACETAMINOPHEN; HYDROCODONE (a set a RASTA clinton fen; esha droe KOE done) is a pain reliever. It is used to treat mild to moderate pain. How should I use this medicine? Take this medicine by mouth. Swallow it with a full glass of water. Follow the directions on the prescription label. If the medicine upsets your stomach, take the medicine with food or milk. Do not take more than you are told to take. Talk to your rail doweling machine operator regarding the use of this medicine in children. This medicine is not approved for use in children. What side effects may I notice from receiving this medicine? Side effects that you should report to your doctor or health lawn care professional as soon as possible: allergic reactions like skin rash, itching or hives, swelling of the face, lips, or tongue breathing problems confusion feeling faint or lightheaded, falls stomach pain yellowing of the eyes or skin Side effects that usually do not require medical attention (report to your doctor or health lawn care professional if they continue or are bothersome): nausea, vomiting stomach upset What may interact with this medicine? alcohol antihistamines isoniazid medicines for depression, anxiety, or psychotic disturbances medicines for sleep muscle relaxants naltrexone narcotic medicines (opiates) for pain phenobarbital ritonavir tramadol What if I miss a dose? If you miss a dose, take it as soon as you can. If it is almost time for your next dose, take only that dose. Do not take double or extra doses. Where should I keep my medicine? Keep out of the reach of children. This medicine can be abused. Keep your medicine in a safe place to protect it from theft. Do not share this medicine with anyone. Selling or giving away this medicine is dangerous and against the law. Store at room temperature between 15 and 30 degrees C (59 and 86 degrees F). Protect from light. Keep container tightly closed. Throw away any unused medicine after the expiration date. Discard unused medicine and used packaging carefully. Pets and children can be harmed if they find used or lost packages. What should I tell my health care provider before I take this medicine? They need to know if you have any of these conditions: brain tumor Crohn's disease, inflammatory bowel disease, or ulcerative colitis drink more than 3 alcohol-containing drinks per day drug abuse or addiction head injury heart or circulation problems kidney disease or problems going to the bathroom liver disease lung disease, asthma, or breathing problems an unusual or allergic reaction to acetaminophen, hydrocodone, other opioid analgesics, other medicines, foods, dyes, or preservatives or trying to get breast-feeding What should I watch for while using this medicine? Tell your doctor or health lawn care professional if your pain does not go away, if it gets worse, or if you have new or a different type of pain. You may develop tolerance to the medicine. Tolerance means that you will need a higher dose of the medicine for pain relief. Tolerance is normal and is expected if you take the medicine for a long time. Do not suddenly stop taking your medicine because you may develop a severe reaction. Your body becomes used to the medicine. This does NOT mean you are addicted. Addiction is a behavior related to getting and using a drug for a non-medical reason. If you have pain, you have a medical reason to take pain medicine. Your doctor will tell you how much medicine to take. If your doctor wants you to stop the medicine, the dose will be slowly lowered over time to avoid any side effects. You may get drowsy or dizzy when you first start taking the medicine or change doses. Do not drive, use machinery, or do anything that may be dangerous until you know how the medicine affects you. Stand or sit up slowly. There are different types of narcotic medicines (opiates) for pain. If you take more than one type at the same time, you may have more side effects. Give your health care provider a list of all medicines you use. Your doctor will tell you how much medicine to take. Do not take more medicine than directed. Call emergency for help if you have problems breathing. The medicine will cause constipation. Try to have a bowel movement at least every 2 to 3 days. If you do not have a bowel movement for 3 days, call your doctor or health lawn care professional. Too much acetaminophen can be very dangerous. Do not take Tylenol (acetaminophen) or medicines that contain acetaminophen with this medicine. Many non-prescription medicines contain acetaminophen. Always read the labels carefully. You have been given the following additional information: Syncope, Unk Cause Hydrocodone Bitartrate, Acetaminophen Oral tablet (Electronically signed by Franklin Quintero Dr. 12/23/2016 0:49)
--- NOTE | 2016-12-23 01:15 | ED MED RECONCILIATION SUMMARY ---
Patient: MALCOLM ORLANDO Medication Reconciliation Report [facility] VisitID: [id number] [address] [place] [address] 26y, F Registration Date/Time: 12/22/2016 Weight: 63.5 kg Height/Length: 65 in. BMI: 23.3 ALLERGIES: Amoxicillin, Penicillins The patient's Home Medications are listed below: STOP TAKING THE FOLLOWING MEDICATIONS: Abilify Oral, daily Abilify Oral, daily Abilify Oral, daily CHANGE THE FOLLOWING MEDICATIONS TO: Sertraline HCl Oral : 100 mg daily, Started: 4 days ago, Change to 1/2 tab daily CONTINUE TAKING THE FOLLOWING MEDICATIONS: Prazosin HCl Oral, to counteract night terrors THE FOLLOWING MEDICATIONS NEED TO BE RECONCILED: TraZODone HCl Oral 50 mg, at bedtime Vistaril Oral (50 mg) 1 capsule, PRN, last dose: today at 1700 The source(s) of the original Home Medication information: Not obtained. The following Medications were given to the patient in the Emergency Department: IV NS IV Fluids bolus 0, then 999 mL/hr, administered: 12/22/2016 9:37:00 PM Zofran [IVP] IVP 4 mg, administered: 12/22/2016 9:43:00 PM Demerol [IVP] IVP 25 mg, administered: 12/22/2016 10:17:00 PM Toradol [IVP] IVP 30 mg, administered: 12/22/2016 11:24:00 PM The following Medications were prescribed to the patient: Hydrocodone/APAP 5mg / 325mg: take 1 orally every 6 hours as needed for pain. Dispense ten (10). No refill. -- Franklin Quintero Dr.
--- NOTE | 2016-12-23 01:15 | ED MAR SUMMARY ---
..... Medication Administration Record [facility] [address] [place] [address] Patient: MALCOLM ORLANDO Visit ID: [id number] 26y, F Weight: 63.5 kg Height/Length: 65 in BMI: 23.3 ALLERGIES: Amoxicillin, Penicillins Start 21:37 12/22/2016 Sheriff Blount R.N., Stop 22:13 12/22/2016 Sheriff Blount R.N. Medication Administered: IV NS (SALINE), Dose: IV Fluids, Rate: 999 mL/hr, Dispensed: 1000 mL bag, Site: #1 left AC. Medication Ordered: IV NS : initial bolus none -, then 1000 mL/hr for X1 (NOW). Given 21:43 12/22/2016 Sheriff Blount R.N. Medication Administered: ZOFRAN [IVP] (ONDANSETRON HCL), Dose: 4 mg IVP over 1 minute(s), Site: #1 left AC. Medication Ordered: Zofran IV 4 mg (NOW). Given 22:17 12/22/2016 Sheriff Blount R.N. Medication Administered: DEMEROL [IVP] (MEPERIDINE HCL), Dose: 25 mg IVP over 1 minute(s), Site: #1 left AC. Medication Ordered: Demerol IV 25 mg (HIGH ALERT MEDICATION, NOW). Given 23:24 12/22/2016 Sheriff Blount R.N. Medication Administered: TORADOL [IVP], Dose: 30 mg IVP over 1 minute(s), Site: #1 left AC. Medication Ordered: Toradol IV 30 mg (NOW).
--- NOTE | 2016-12-23 01:15 | ED MED RECONCILIATION SUMMARY ---
Patient: MALCOLM ORLANDO Medication Reconciliation Report [facility] VisitID: [id number] [address] [place] [address] 26y, F Registration Date/Time: 12/22/2016 Weight: 63.5 kg Height/Length: 65 in. BMI: 23.3 ALLERGIES: Amoxicillin, Penicillins The patient's Home Medications are listed below: STOP TAKING THE FOLLOWING MEDICATIONS: Abilify Oral, daily Abilify Oral, daily Abilify Oral, daily CHANGE THE FOLLOWING MEDICATIONS TO: Sertraline HCl Oral : 100 mg daily, Started: 4 days ago, Change to 1/2 tab daily CONTINUE TAKING THE FOLLOWING MEDICATIONS: Prazosin HCl Oral, to counteract night terrors THE FOLLOWING MEDICATIONS NEED TO BE RECONCILED: TraZODone HCl Oral 50 mg, at bedtime Vistaril Oral (50 mg) 1 capsule, PRN, last dose: today at 1700 The source(s) of the original Home Medication information: Not obtained. The following Medications were given to the patient in the Emergency Department: IV NS IV Fluids bolus 0, then 999 mL/hr, administered: 12/22/2016 9:37:00 PM Zofran [IVP] IVP 4 mg, administered: 12/22/2016 9:43:00 PM Demerol [IVP] IVP 25 mg, administered: 12/22/2016 10:17:00 PM Toradol [IVP] IVP 30 mg, administered: 12/22/2016 11:24:00 PM The following Medications were prescribed to the patient: Hydrocodone/APAP 5mg / 325mg: take 1 orally every 6 hours as needed for pain. Dispense ten (10). No refill. -- Franklin Quintero Dr.
== END 2016-12-23 00:58 ==
LOC: ED SRH 21:00
DX: R55 Syncope and collapse (principal); F17.210 Nicotine dependence, cigarettes, uncomplicated; Z90.710 Acquired absence of both cervix and uterus; Z88.0 Allergy status to penicillin; Z88.1 Allergy status to other antibiotic agents
CPT/HCPCS: 90004; 90100; 90469; 92235; 92530; 95059

== ENCOUNTER 2017-01-16 16:33 | Emergency (ER) | payer OTHER ==
--- NOTE | 2017-01-16 17:13 | ED CLINICAL REPORT ---
Clinical Report - Physicians/Mid Levels [facility] [address] [place] [place] [address] 01/16/2017 16:34 [id number] Time Seen: 1700Jan 16 2017. Arrived- By private vehicle. Historian- patient. HISTORY OF PRESENT ILLNESS Chief Complaint: Injury to the left ankle. 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 (Patient sustained injury 5 days ago out in the field, has been ambulating on the leg, however with pain or cords was seen yesterday in [facility], and had an x-ray completed which did not show any fracture, told she had a sprain and to follow up with orthopedics. Patient now here where she lives, having increase of pain. Pain worsens with movement). REVIEW OF SYSTEMS The patient complains of pain on weight bearing. All systems otherwise negative, except as recorded above. PAST HISTORY The patient has had a prior injury to the same area. Tetanus immunization status is up-to-date. SOCIAL HISTORY No drug use. ADDITIONAL NOTES The nursing notes have been reviewed. PHYSICAL EXAM Vital Signs: 01/16/2017 16:47 BP: 115/66. HR: 110. RR: 16. O2 saturation: 100%. Temp: 97.7 F. Pain level now: 7/10. Appearance: Alert. Head: Head atraumatic. Eyes: Eyes normal inspection. Neck: Normal inspection. Neck supple. CVS: Normal heart rate and rhythm. Heart sounds normal. Respiratory: No respiratory distress. Breath sounds normal. Chest nontender. Skin: Skin intact. Skin warm. Extremities: Left medial ankle. No tenderness or swelling. Left anterior ankle. No tenderness or swelling. Left posterior ankle. No tenderness or swelling. Left lateral ankle: mild tenderness and swelling. No erythema, ecchymosis or deformity. Left foot. No tenderness or swelling. Base of the left 5th metatarsal. No tenderness or swelling. Left heel. No tenderness or swelling. Gait: Limping gait. (with splint). Neuro: Oriented X 3. No motor deficit. PROGRESS AND PROCEDURES Course of Care: records reviewed with patient from previous ER visit on the 80s, negative x-ray. No narcotic prescription is evident. Patient with no new injury. Exacerbation of pain upon standing. Patient stable. Lateral pain. Achilles intact. Pain is not out of proportion to exam. No compartment injury noted. Good passive movement. Patient is stable. Symptoms better. Patient/family counseled. Differential Diagnosis: I considered sprain, dislocation, ligament injury, fracture, stress fracture, degenerative joint disease, arthritis, bursitis, synovitis, gout, pseudogout and Maria Del Carmen's syndrome as a possible cause of joint pain in this patient. This is a partial list of diagnoses considered. Disposition: Discharged. CLINICAL IMPRESSION Sprain of the tibiofibular ligament of the left ankle ((second visit, no XR today)). INSTRUCTIONS Apply ice. Elevate affected areas above chest level. You may walk and bear weight as tolerated. Prescription Medications: Hydrocodone/APAP 5mg / 325mg: take 1 orally every 6 hours as needed for pain. Dispense twelve (12). No refill. OTC Medications: Take ibuprofen (Advil, Nuprin, etc.) according to label instructions. Available over the counter. Follow-up with: Mikey Cisneros DPM, Podiatry, , [facility], [address] [place] [address], [address], [place] [address] Follow up. Call for the next available appointment. (Electronically signed by Carol Flynn P.A.-C 01/16/2017 18:03)
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
--- NOTE | 2017-01-16 17:13 | ED ORDER SUMMARY ---
..... Patient: MALCOLM ORLANDO OrderSheet [facility] VisitID: [id number] [address] [place] [address] 26y, F Registration Date/Time: 01/16/2017 ORDER SHEET Weight: 67.1 kg (stated) Allergies: Penicillin, Amoxicillin, Penicillins GENERAL ORDERS: MEDICATION ORDERS: Hydrocodone-APAP PO 5/325 mg (NOW, HIGH ALERT MEDICATION) (17:12 01/16/2017 Karolina Biggs) (17:35 Swapna Yañez) IV FLUIDS: ORDER SHEET NOTES: [Electronically signed by Gerri Archuleta R.N. (18:00 01/16/2017)] [Electronically signed by Carol Flynn P.A.-C (18:03 01/16/2017)] [Electronically locked/signed by Gerri Archuleta R.N. (18:00 01/16/2017)]
--- NOTE | 2017-01-16 17:13 | ED ORDER SUMMARY ---
..... Patient: MALCOLM ORLANDO OrderSheet [facility] VisitID: [id number] [address] [place] [address] 26y, F Registration Date/Time: 01/16/2017 ORDER SHEET Weight: 67.1 kg (stated) Allergies: Penicillin, Amoxicillin, Penicillins GENERAL ORDERS: MEDICATION ORDERS: Hydrocodone-APAP PO 5/325 mg (NOW, HIGH ALERT MEDICATION) (17:12 01/16/2017 Karolina Biggs) (17:35 Swapna Yañez) IV FLUIDS: ORDER SHEET NOTES: [Electronically signed by Gerri Archuleta R.N. (18:00 01/16/2017)] [Electronically signed by Carol Flynn P.A.-C (18:03 01/16/2017)] [Electronically locked/signed by Gerri Archuleta R.N. (18:00 01/16/2017)]
--- NOTE | 2017-01-16 17:13 | ED CLINICAL REPORT ---
Clinical Report - Physicians/Mid Levels [facility] [address] [place] [address] 01/16/2017 16:34 [id number] Time Seen: 1700Jan 16 2017. Arrived- By private vehicle. Historian- patient. HISTORY OF PRESENT ILLNESS Chief Complaint: Injury to the left ankle. 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 (Patient sustained injury 5 days ago out in the field, has been ambulating on the leg, however with pain or cords was seen yesterday in [facility], and had an x-ray completed which did not show any fracture, told she had a sprain and to follow up with orthopedics. Patient now here where she lives, having increase of pain. Pain worsens with movement). REVIEW OF SYSTEMS The patient complains of pain on weight bearing. All systems otherwise negative, except as recorded above. PAST HISTORY The patient has had a prior injury to the same area. Tetanus immunization status is up-to-date. SOCIAL HISTORY No drug use. ADDITIONAL NOTES The nursing notes have been reviewed. PHYSICAL EXAM Vital Signs: 01/16/2017 16:47 BP: 115/66. HR: 110. RR: 16. O2 saturation: 100%. Temp: 97.7 F. Pain level now: 7/10. Appearance: Alert. Head: Head atraumatic. Eyes: Eyes normal inspection. Neck: Normal inspection. Neck supple. CVS: Normal heart rate and rhythm. Heart sounds normal. Respiratory: No respiratory distress. Breath sounds normal. Chest nontender. Skin: Skin intact. Skin warm. Extremities: Left medial ankle. No tenderness or swelling. Left anterior ankle. No tenderness or swelling. Left posterior ankle. No tenderness or swelling. Left lateral ankle: mild tenderness and swelling. No erythema, ecchymosis or deformity. Left foot. No tenderness or swelling. Base of the left 5th metatarsal. No tenderness or swelling. Left heel. No tenderness or swelling. Gait: Limping gait. (with splint). Neuro: Oriented X 3. No motor deficit. PROGRESS AND PROCEDURES Course of Care: records reviewed with patient from previous ER visit on the 80s, negative x-ray. No narcotic prescription is evident. Patient with no new injury. Exacerbation of pain upon standing. Patient stable. Lateral pain. Achilles intact. Pain is not out of proportion to exam. No compartment injury noted. Good passive movement. Patient is stable. Symptoms better. Patient/family counseled. Differential Diagnosis: I considered sprain, dislocation, ligament injury, fracture, stress fracture, degenerative joint disease, arthritis, bursitis, synovitis, gout, pseudogout and Maria Del Carmen's syndrome as a possible cause of joint pain in this patient. This is a partial list of diagnoses considered. Disposition: Discharged. CLINICAL IMPRESSION Sprain of the tibiofibular ligament of the left ankle ((second visit, no XR today)). INSTRUCTIONS Apply ice. Elevate affected areas above chest level. You may walk and bear weight as tolerated. Prescription Medications: Hydrocodone/APAP 5mg / 325mg: take 1 orally every 6 hours as needed for pain. Dispense twelve (12). No refill. OTC Medications: Take ibuprofen (Advil, Nuprin, etc.) according to label instructions. Available over the counter. Follow-up with: Mikey Cisneros DPM, Podiatry, , [facility], [address] [place] [address], [address], [place] [address] Follow up. Call for the next available appointment. (Electronically signed by Carol Flynn P.A.-C 01/16/2017 18:03)
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
--- NOTE | 2017-01-16 18:03 | ED MAR SUMMARY ---
..... Medication Administration Record [facility] [address] [place] [address] Patient: MALCOLM ORLANDO Visit ID: [id number] 26y, F Weight: 67.1 kg Height/Length: 65 in BMI: 24.6 ALLERGIES: Amoxicillin, Penicillins, Penicillin Given 17:30 01/16/2017 Rosa Isela Rosenberg R.N. Medication Administered: HYDROCODONE-APAP [PO] (HYDROCODONE-ACETAMINOPHEN), Dose: 1 tab 5/325 mg Tablets PO. Medication Ordered: Hydrocodone-APAP PO 5/325 mg (NOW, HIGH ALERT MEDICATION).
--- NOTE | 2017-01-16 18:03 | ED DISCHARGE INSTRUCTIONS ---
Patient: MALCOLM ORLANDO General Instructions [facility] VisitID: [id number] [place] [address] 26y, F Registration Date/Time: 01/16/2017 Sprain of the tibiofibular ligament of the left ankle ((second visit, no XR today)). INSTRUCTIONS Apply ice. Elevate affected areas above chest level. You may walk and bear weight as tolerated. Prescription Medications: Hydrocodone/APAP 5mg / 325mg: take 1 orally every 6 hours as needed for pain. Dispense twelve (12). No refill. OTC Medications: Take ibuprofen (Advil, Nuprin, etc.) according to label instructions. Available over the counter. Follow-up with: Mikey Cisneros DPM, Podiatry, , [facility], [address] [place] [address], [address], [place] [address] Follow up. Call for the next available appointment. ADDITIONAL INFORMATION Sprain, Ankle,With X-Ray A sprain is an injury to the ligaments or capsule that holds a joint together. There are no broken bones. Most sprains take from four to six weeks to heal. If the ligament is completely torn (severe sprain), it can take several months to recover. Mild to moderate sprains may be treated with an elastic wrap or an in-shoe splint to provide support and prevent re-injury. A mild sprain may not require any additional support. A severe sprain may require surgery to repair. Home care The following guidelines will help you care for your injury at home: Stay off the injured leg as much as possible until you can walk on it without pain. If you have a lot of pain with walking, crutches or a walker may be prescribed. (These can be rented or purchased at many pharmacies and surgical or orthopedic supply stores). Follow your doctor's advice regarding when to begin bearing weight on that leg. Keep your leg elevated to reduce pain and swelling. When sleeping, place a pillow under the injured leg. When sitting, support the injured leg so it is level with your waist. This is very important during the first 48 hours. Apply an ice pack (ice cubes in a plastic bag, wrapped in a towel) over the injured area for 20 minutes every 12 hours the first day. You can place the ice pack directly over the splint/cast. If you were given a boot, open it to apply the ice pack. Continue with ice packs 34 times a day for the next two days, then as needed for the relief of pain and swelling. You may use acetaminophen or ibuprofen to control pain, unless another pain medicine was prescribed. If you have chronic liver or kidney disease or ever had a stomach ulcer or GI bleeding, talk with your doctor before using these medicines. You may return to sports after healing, when you can run without pain. A sprained ankle is at risk for re-injury during the first six weeks. During that time, protect your ankle with an in-shoe splint that prevents tilting of your ankle from side to side. This is very important if you do active work or play sports during that time. Follow-up care Any X-rays you had today dont show any broken bones, breaks, or fractures. Sometimes fractures dont show up on the first X-ray. Bruises and sprains can sometimes hurt as much as a fracture. These injuries can take time to heal completely. If your symptoms dont improve or they get worse, talk with your doctor. You may need a repeat X-ray. When to seek medical care Get prompt medical attention if any of the following occur: The plaster cast or splint gets wet or soft The fiberglass cast or splint gets wet and does not dry for 24 hours Pain or swelling increases, or redness appears Toes become cold, blue, numb or tingly Re-injure your ankle Hydrocodone Bitartrate, Acetaminophen Oral tablet What is this medicine? ACETAMINOPHEN; HYDROCODONE (a set a RASTA clinton fen; esha droe KOE done) is a pain reliever. It is used to treat mild to moderate pain. How should I use this medicine? Take this medicine by mouth. Swallow it with a full glass of water. Follow the directions on the prescription label. If the medicine upsets your stomach, take the medicine with food or milk. Do not take more than you are told to take. Talk to your board mill supervisor regarding the use of this medicine in children. This medicine is not approved for use in children. What side effects may I notice from receiving this medicine? Side effects that you should report to your doctor or health certified caregiver as soon as possible: allergic reactions like skin rash, itching or hives, swelling of the face, lips, or tongue breathing problems confusion feeling faint or lightheaded, falls stomach pain yellowing of the eyes or skin Side effects that usually do not require medical attention (report to your doctor or health certified caregiver if they continue or are bothersome): nausea, vomiting stomach upset What may interact with this medicine? alcohol antihistamines isoniazid medicines for depression, anxiety, or psychotic disturbances medicines for sleep muscle relaxants naltrexone narcotic medicines (opiates) for pain phenobarbital ritonavir tramadol What if I miss a dose? If you miss a dose, take it as soon as you can. If it is almost time for your next dose, take only that dose. Do not take double or extra doses. Where should I keep my medicine? Keep out of the reach of children. This medicine can be abused. Keep your medicine in a safe place to protect it from theft. Do not share this medicine with anyone. Selling or giving away this medicine is dangerous and against the law. Store at room temperature between 15 and 30 degrees C (59 and 86 degrees F). Protect from light. Keep container tightly closed. Throw away any unused medicine after the expiration date. Discard unused medicine and used packaging carefully. Pets and children can be harmed if they find used or lost packages. What should I tell my health care provider before I take this medicine? They need to know if you have any of these conditions: brain tumor Crohn's disease, inflammatory bowel disease, or ulcerative colitis drink more than 3 alcohol-containing drinks per day drug abuse or addiction head injury heart or circulation problems kidney disease or problems going to the bathroom liver disease lung disease, asthma, or breathing problems an unusual or allergic reaction to acetaminophen, hydrocodone, other opioid analgesics, other medicines, foods, dyes, or preservatives or trying to get breast-feeding What should I watch for while using this medicine? Tell your doctor or health certified caregiver if your pain does not go away, if it gets worse, or if you have new or a different type of pain. You may develop tolerance to the medicine. Tolerance means that you will need a higher dose of the medicine for pain relief. Tolerance is normal and is expected if you take the medicine for a long time. Do not suddenly stop taking your medicine because you may develop a severe reaction. Your body becomes used to the medicine. This does NOT mean you are addicted. Addiction is a behavior related to getting and using a drug for a non-medical reason. If you have pain, you have a medical reason to take pain medicine. Your doctor will tell you how much medicine to take. If your doctor wants you to stop the medicine, the dose will be slowly lowered over time to avoid any side effects. You may get drowsy or dizzy when you first start taking the medicine or change doses. Do not drive, use machinery, or do anything that may be dangerous until you know how the medicine affects you. Stand or sit up slowly. There are different types of narcotic medicines (opiates) for pain. If you take more than one type at the same time, you may have more side effects. Give your health care provider a list of all medicines you use. Your doctor will tell you how much medicine to take. Do not take more medicine than directed. Call emergency for help if you have problems breathing. The medicine will cause constipation. Try to have a bowel movement at least every 2 to 3 days. If you do not have a bowel movement for 3 days, call your doctor or health certified caregiver. Too much acetaminophen can be very dangerous. Do not take Tylenol (acetaminophen) or medicines that contain acetaminophen with this medicine. Many non-prescription medicines contain acetaminophen. Always read the labels carefully. You have been given the following additional information: Sprain, Ankle, With X-Ray Hydrocodone Bitartrate, Acetaminophen Oral tablet You may walk and bear weight as tolerated. (Electronically signed by Carol Flynn P.A.-C 01/16/2017 18:03)
--- NOTE | 2017-01-16 18:03 | ED MAR SUMMARY ---
..... Medication Administration Record [facility] [address] [place] [address] Patient: MALCOLM ORLANDO Visit ID: [id number] 26y, F Weight: 67.1 kg Height/Length: 65 in BMI: 24.6 ALLERGIES: Amoxicillin, Penicillins, Penicillin Given 17:30 01/16/2017 Rosa Isela Rosenberg R.N. Medication Administered: HYDROCODONE-APAP [PO] (HYDROCODONE-ACETAMINOPHEN), Dose: 1 tab 5/325 mg Tablets PO. Medication Ordered: Hydrocodone-APAP PO 5/325 mg (NOW, HIGH ALERT MEDICATION).
--- NOTE | 2017-01-16 18:03 | ED DISCHARGE INSTRUCTIONS ---
Patient: MALCOLM ORLANDO General Instructions [facility] VisitID: [id number] [place] [address] 26y, F Registration Date/Time: 01/16/2017 Sprain of the tibiofibular ligament of the left ankle ((second visit, no XR today)). INSTRUCTIONS Apply ice. Elevate affected areas above chest level. You may walk and bear weight as tolerated. Prescription Medications: Hydrocodone/APAP 5mg / 325mg: take 1 orally every 6 hours as needed for pain. Dispense twelve (12). No refill. OTC Medications: Take ibuprofen (Advil, Nuprin, etc.) according to label instructions. Available over the counter. Follow-up with: Mikey Cisneros DPM, Podiatry, , [facility], [address] [place] [address], [address], [place] [address] Follow up. Call for the next available appointment. ADDITIONAL INFORMATION Sprain, Ankle,With X-Ray A sprain is an injury to the ligaments or capsule that holds a joint together. There are no broken bones. Most sprains take from four to six weeks to heal. If the ligament is completely torn (severe sprain), it can take several months to recover. Mild to moderate sprains may be treated with an elastic wrap or an in-shoe splint to provide support and prevent re-injury. A mild sprain may not require any additional support. A severe sprain may require surgery to repair. Home care The following guidelines will help you care for your injury at home: Stay off the injured leg as much as possible until you can walk on it without pain. If you have a lot of pain with walking, crutches or a walker may be prescribed. (These can be rented or purchased at many pharmacies and surgical or orthopedic supply stores). Follow your doctor's advice regarding when to begin bearing weight on that leg. Keep your leg elevated to reduce pain and swelling. When sleeping, place a pillow under the injured leg. When sitting, support the injured leg so it is level with your waist. This is very important during the first 48 hours. Apply an ice pack (ice cubes in a plastic bag, wrapped in a towel) over the injured area for 20 minutes every 12 hours the first day. You can place the ice pack directly over the splint/cast. If you were given a boot, open it to apply the ice pack. Continue with ice packs 34 times a day for the next two days, then as needed for the relief of pain and swelling. You may use acetaminophen or ibuprofen to control pain, unless another pain medicine was prescribed. If you have chronic liver or kidney disease or ever had a stomach ulcer or GI bleeding, talk with your doctor before using these medicines. You may return to sports after healing, when you can run without pain. A sprained ankle is at risk for re-injury during the first six weeks. During that time, protect your ankle with an in-shoe splint that prevents tilting of your ankle from side to side. This is very important if you do active work or play sports during that time. Follow-up care Any X-rays you had today dont show any broken bones, breaks, or fractures. Sometimes fractures dont show up on the first X-ray. Bruises and sprains can sometimes hurt as much as a fracture. These injuries can take time to heal completely. If your symptoms dont improve or they get worse, talk with your doctor. You may need a repeat X-ray. When to seek medical care Get prompt medical attention if any of the following occur: The plaster cast or splint gets wet or soft The fiberglass cast or splint gets wet and does not dry for 24 hours Pain or swelling increases, or redness appears Toes become cold, blue, numb or tingly Re-injure your ankle Hydrocodone Bitartrate, Acetaminophen Oral tablet What is this medicine? ACETAMINOPHEN; HYDROCODONE (a set a RASTA clinton fen; esha droe KOE done) is a pain reliever. It is used to treat mild to moderate pain. How should I use this medicine? Take this medicine by mouth. Swallow it with a full glass of water. Follow the directions on the prescription label. If the medicine upsets your stomach, take the medicine with food or milk. Do not take more than you are told to take. Talk to your fire manager regarding the use of this medicine in children. This medicine is not approved for use in children. What side effects may I notice from receiving this medicine? Side effects that you should report to your doctor or health school childcare attendant as soon as possible: allergic reactions like skin rash, itching or hives, swelling of the face, lips, or tongue breathing problems confusion feeling faint or lightheaded, falls stomach pain yellowing of the eyes or skin Side effects that usually do not require medical attention (report to your doctor or health school childcare attendant if they continue or are bothersome): nausea, vomiting stomach upset What may interact with this medicine? alcohol antihistamines isoniazid medicines for depression, anxiety, or psychotic disturbances medicines for sleep muscle relaxants naltrexone narcotic medicines (opiates) for pain phenobarbital ritonavir tramadol What if I miss a dose? If you miss a dose, take it as soon as you can. If it is almost time for your next dose, take only that dose. Do not take double or extra doses. Where should I keep my medicine? Keep out of the reach of children. This medicine can be abused. Keep your medicine in a safe place to protect it from theft. Do not share this medicine with anyone. Selling or giving away this medicine is dangerous and against the law. Store at room temperature between 15 and 30 degrees C (59 and 86 degrees F). Protect from light. Keep container tightly closed. Throw away any unused medicine after the expiration date. Discard unused medicine and used packaging carefully. Pets and children can be harmed if they find used or lost packages. What should I tell my health care provider before I take this medicine? They need to know if you have any of these conditions: brain tumor Crohn's disease, inflammatory bowel disease, or ulcerative colitis drink more than 3 alcohol-containing drinks per day drug abuse or addiction head injury heart or circulation problems kidney disease or problems going to the bathroom liver disease lung disease, asthma, or breathing problems an unusual or allergic reaction to acetaminophen, hydrocodone, other opioid analgesics, other medicines, foods, dyes, or preservatives or trying to get breast-feeding What should I watch for while using this medicine? Tell your doctor or health school childcare attendant if your pain does not go away, if it gets worse, or if you have new or a different type of pain. You may develop tolerance to the medicine. Tolerance means that you will need a higher dose of the medicine for pain relief. Tolerance is normal and is expected if you take the medicine for a long time. Do not suddenly stop taking your medicine because you may develop a severe reaction. Your body becomes used to the medicine. This does NOT mean you are addicted. Addiction is a behavior related to getting and using a drug for a non-medical reason. If you have pain, you have a medical reason to take pain medicine. Your doctor will tell you how much medicine to take. If your doctor wants you to stop the medicine, the dose will be slowly lowered over time to avoid any side effects. You may get drowsy or dizzy when you first start taking the medicine or change doses. Do not drive, use machinery, or do anything that may be dangerous until you know how the medicine affects you. Stand or sit up slowly. There are different types of narcotic medicines (opiates) for pain. If you take more than one type at the same time, you may have more side effects. Give your health care provider a list of all medicines you use. Your doctor will tell you how much medicine to take. Do not take more medicine than directed. Call emergency for help if you have problems breathing. The medicine will cause constipation. Try to have a bowel movement at least every 2 to 3 days. If you do not have a bowel movement for 3 days, call your doctor or health school childcare attendant. Too much acetaminophen can be very dangerous. Do not take Tylenol (acetaminophen) or medicines that contain acetaminophen with this medicine. Many non-prescription medicines contain acetaminophen. Always read the labels carefully. You have been given the following additional information: Sprain, Ankle, With X-Ray Hydrocodone Bitartrate, Acetaminophen Oral tablet You may walk and bear weight as tolerated. (Electronically signed by Carol Flynn P.A.-C 01/16/2017 18:03)
--- NOTE | 2017-01-16 18:03 | ED MED RECONCILIATION SUMMARY ---
Patient: MALCOLM ORLANDO Medication Reconciliation Report [facility] VisitID: [id number] [address] [place] [address] 26y, F Registration Date/Time: 01/16/2017 Weight: 67.1 kg Height/Length: 65 in. BMI: 24.6 ALLERGIES: Amoxicillin, Penicillin, Penicillins The patient's Home Medications are listed below: THE FOLLOWING MEDICATIONS NEED TO BE RECONCILED: Abilify Oral Ibuprofen Oral Prazosin HCl Oral, to counteract night terrors Sertraline HCl Oral 100 mg, daily TraZODone HCl Oral 50 mg, at bedtime Tylenol Oral Vistaril Oral (50 mg) 1 capsule, PRN, last dose: today at 1700 The source(s) of the original Home Medication information: Not obtained. The following Medications were given to the patient in the Emergency Department: Hydrocodone-APAP [PO] PO 1 tab, administered: 01/16/2017 5:30:00 PM The following Medications were prescribed to the patient: Take ibuprofen (Advil, Nuprin, etc.) according to label instructions. Available over the counter. -- Carol Flynn, P.A.-C Hydrocodone/APAP 5mg / 325mg: take 1 orally every 6 hours as needed for pain. Dispense twelve (12). No refill. -- Carol Flynn, P.A.-C
--- NOTE | 2017-01-16 18:03 | ED MED RECONCILIATION SUMMARY ---
Patient: MALCOLM ORLANDO Medication Reconciliation Report [facility] VisitID: [id number] [address] [place] [address] 26y, F Registration Date/Time: 01/16/2017 Weight: 67.1 kg Height/Length: 65 in. BMI: 24.6 ALLERGIES: Amoxicillin, Penicillin, Penicillins The patient's Home Medications are listed below: THE FOLLOWING MEDICATIONS NEED TO BE RECONCILED: Abilify Oral Ibuprofen Oral Prazosin HCl Oral, to counteract night terrors Sertraline HCl Oral 100 mg, daily TraZODone HCl Oral 50 mg, at bedtime Tylenol Oral Vistaril Oral (50 mg) 1 capsule, PRN, last dose: today at 1700 The source(s) of the original Home Medication information: Not obtained. The following Medications were given to the patient in the Emergency Department: Hydrocodone-APAP [PO] PO 1 tab, administered: 01/16/2017 5:30:00 PM The following Medications were prescribed to the patient: Take ibuprofen (Advil, Nuprin, etc.) according to label instructions. Available over the counter. -- Carol Flynn, P.A.-C Hydrocodone/APAP 5mg / 325mg: take 1 orally every 6 hours as needed for pain. Dispense twelve (12). No refill. -- Carol Flynn, P.A.-C
== END 2017-01-16 18:00 | disposition home or self-care (01) ==
LOC: ED SRH 16:33
DX: S93.432D Sprain of tibiofibular ligament of left ankle, subsequent encounter (principal); X50.1XXD Overexertion from prolonged static or awkward postures, subsequent encounter; F17.210 Nicotine dependence, cigarettes, uncomplicated; Z88.0 Allergy status to penicillin; Z88.1 Allergy status to other antibiotic agents

== ENCOUNTER 2017-01-31 19:05 | Emergency (ER) | payer OTHER ==
--- NOTE | 2017-01-31 21:14 | DIAGNOSTIC IMAGING REPORT ---
PROCEDURE: CT HEAD WITHOUT CONTRAST INDICATION: HEADACHE TECHNIQUE: Axial CT images were acquired through the head. Coronal and sagittal reformations were created. COMPARISON: 10/16/2016 FINDINGS: No intracranial hemorrhage or extraaxial fluid collections. Ventricles are normal in size, shape and position. There is no mass, mass effect or midline shift. The nettles-white matter differentiation is normal. There is no edema. The calvarium is intact. The paranasal sinuses and mastoid air cells are normally aerated. The extracranial soft tissues and orbits are normal. IMPRESSION: 1. No CT evidence of acute intracranial process. 2. Findings discussed with Gee at [address] scans at this facility use dose modulation, iterative reconstruction, and/or weight-based dosing when appropriate to reduce radiation dose to as low as reasonably achievable.
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
--- NOTE | 2017-01-31 21:28 | ED ORDER SUMMARY ---
..... Patient: MALCOLM ORLANDO OrderSheet [facility] VisitID: [id number] [place] [address] 26y, F Registration Date/Time: 01/31/2017 ORDER SHEET Weight: 68.0 kg Allergies: Amoxicillin, Penicillins GENERAL ORDERS: CT Head wo Cont Urgent (20:39 01/31/2017 EKoroleva P.A.-C) (Ack 20:47 SRedmond) (20:47 MCampbell) MEDICATION ORDERS: Phenergan IV 12.5 mg (HIGH ALERT MEDICATION, NOW) (19:41 01/31/2017 EKoroleva P.A.-C) (19:56 TBowen R.N.) IV FLUIDS: Toradol IV 30 mg (NOW) (19:41 01/31/2017 EKoroleva P.A.-C) (19:56 TBowen R.N.) IV NS : initial bolus 1000 mL (1000 mL/hr), then 1000 mL/hr for X1 (NOW); Sherman (19:42 01/31/2017 EKoroleva P.A.-C) (19:55 TBowen R.N.) Zofran IV 8 mg (NOW) (19:42 01/31/2017 EKoroleva P.A.-C) (19:56 TBowen R.N.) Dilaudid IV 1 mg (HIGH ALERT MEDICATION, NOW) (21:21 01/31/2017 EKoroleva P.A.-C) (Cancelled: Other21:28 EKoroleva P.A.-C) ORDER SHEET NOTES: [Electronically signed by Twyla Gonsales R.N. (21:35 01/31/2017)] [Electronically signed by Carol Flynn P.A.-C (00:26 02/01/2017)] [Electronically locked/signed by Twyla Gonsales R.N. (21:35 01/31/2017)]
--- NOTE | 2017-01-31 21:28 | ED ORDER SUMMARY ---
..... Patient: MALCOLM ORLANDO OrderSheet [facility] VisitID: [id number] [place] [address] 26y, F Registration Date/Time: 01/31/2017 ORDER SHEET Weight: 68.0 kg Allergies: Amoxicillin, Penicillins GENERAL ORDERS: CT Head wo Cont Urgent (20:39 01/31/2017 EKoroleva P.A.-C) (Ack 20:47 SRedmond) (20:47 MCampbell) MEDICATION ORDERS: Phenergan IV 12.5 mg (HIGH ALERT MEDICATION, NOW) (19:41 01/31/2017 EKoroleva P.A.-C) (19:56 TBowen R.N.) IV FLUIDS: Toradol IV 30 mg (NOW) (19:41 01/31/2017 EKoroleva P.A.-C) (19:56 TBowen R.N.) IV NS : initial bolus 1000 mL (1000 mL/hr), then 1000 mL/hr for X1 (NOW); Sherman (19:42 01/31/2017 EKoroleva P.A.-C) (19:55 TBowen R.N.) Zofran IV 8 mg (NOW) (19:42 01/31/2017 EKoroleva P.A.-C) (19:56 TBowen R.N.) Dilaudid IV 1 mg (HIGH ALERT MEDICATION, NOW) (21:21 01/31/2017 EKoroleva P.A.-C) (Cancelled: Other21:28 EKoroleva P.A.-C) ORDER SHEET NOTES: [Electronically signed by Twyla Gonsales R.N. (21:35 01/31/2017)] [Electronically signed by Carol Flynn P.A.-C (00:26 02/01/2017)] [Electronically locked/signed by Twyla Gonsales R.N. (21:35 01/31/2017)]
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
--- NOTE | 2017-02-01 00:26 | ED DISCHARGE INSTRUCTIONS ---
Patient: MALCOLM ORLANDO General Instructions [facility] VisitID: [id number] [place] [address] 26y, F Registration Date/Time: 01/31/2017 Acute migraine headache. INSTRUCTIONS Warnings: Further evaluation is necessary. Follow-up: Follow up with your doctor in three as needed. ADDITIONAL INFORMATION Migraine Headache Migraine headaches are related to changes in blood flow to the brain. This causes throbbing or constant pain on one or both sides of the head. The pain may last from a few hours to several days. There is usually nausea, vomiting, sensitivity to light and sound, and blurred vision. A migraine attack may be triggered by emotional stress, hormone changes during the menstrual cycle, oral contraceptives, alcohol use, certain foods containing tyramine, eye strain, weather changes, missing meals, or too little or too much sleep. Home Care For This Headache: 1) If you were given pain medicine for this headache, do not drive yourself home . Arrange for a ride, instead. When you get home, try to sleep. You should feel much better when you wake up. 2) Migraine headaches may improve with an ice pack on the forehead or at the base of the skull. Heat to the back of your neck may relieve any neck spasm. 3) Drink only clear liquids or eat a very light diet to avoid nausea/vomiting until symptoms improve. Preventing Future Headaches: 1) Pay attention to those factors that seem to trigger your headache. Try to avoid them when you can. If you have frequent headaches, it is useful to keep a diary of what you were doing, feeling or eating in the hours before each attack. Show this to your doctor to help find the cause of your headaches. a) If you feel that stress is a factor in your headaches, look at the sources of stress in your life. Find ways to release the build-up of those stresses by using regular exercise, relaxation methods (yoga, meditation), bio-feedback or simply taking time-out for yourself. For more information about this, consult your doctor or go to a local bookstore and review books and tapes on this subject. b) Tyramine is a substance present in the following foods : chocolate, yogurt, all cheeses except cottage cheese and cream cheese. smoked or pickled fish and meat (including swan, caviar, bologna, pepperoni, salami), liver, avocados, bananas, figs, raisins, and red wine. Be aware that these foods may trigger a migraine in some persons. Try taking these foods out of your diet for 1-2 months to see if this reduces headache frequency. Treating Future Attacks: 1) At the first sign of a headache, take time out if possible. Find a quiet, dark, comfortable place to sit or lie down. Let yourself relax or sleep. 2) An ice pack on the forehead or area of greatest pain may help. If you are having muscle spasm and tightness of the neck, a heating pad and massage to this area may be helpful. 3) If you have been prescribed a medicine to stop a migraine headache, use this at the very first warning sign of the headache (aura or initial pain) for best results. Follow Up with your doctor if the headache is not better within the next 24 hours. If you have frequent headaches you should discuss a treatment plan with your primary care doctor. Ask if you can have medicine to take at home the next time you get a bad headache. Poorly controlled chronic headaches may require a referral to a neurologist (headache specialist). Get Prompt Medical Attention if any of the following occur: Your head pain gets worse, or does not improve within 24 hours Repeated vomiting (cant keep liquids down) Sinus or ear or throat pain (not already reported) Fever of 100.4 F (38 C) or higher, or as directed by your healthcare provider Stiff neck Extreme drowsiness, confusion or fainting Dizziness, vertigo (dizziness with spinning sensation) Weakness of an arm or leg or one side of the face Difficulty with speech or vision You have been given the following additional information: Headache, Migraine (Classical) (Electronically signed by Carol Flynn P.A.-C 02/01/2017 0:26)
--- NOTE | 2017-02-01 00:26 | ED MED RECONCILIATION SUMMARY ---
Patient: DARIONMALCOLM Medication Reconciliation Report [facility] VisitID: [id number] [address] [place] [address] 26y, F Registration Date/Time: 01/31/2017 Weight: 68.0 kg Height/Length: 65 in. BMI: 25.0 ALLERGIES: Amoxicillin, Penicillins The patient's Home Medications are listed below: NONE. The source(s) of the original Home Medication information: Not obtained. The following Medications were given to the patient in the Emergency Department: IV NS IV Fluids bolus 0, then 1000 mL/hr, administered: 01/31/2017 7:55:00 PM PHENERGAN [IVP] IVP 12.5 mg, administered: 01/31/2017 7:56:00 PM Toradol [IVP] IVP 30 mg, administered: 01/31/2017 7:51:00 PM Zofran [IVP] IVP 8 mg, administered: 01/31/2017 7:56:00 PM The following Medications were prescribed to the patient: None.
--- NOTE | 2017-02-01 00:26 | ED MAR SUMMARY ---
..... Medication Administration Record [facility] [address] [place] [address] Patient: MALCOLM ORLANDO Visit ID: [id number] 26y, F Weight: 68.0 kg Height/Length: 65 in BMI: 25 ALLERGIES: Penicillins, Amoxicillin Given 19:51 01/31/2017 Harpreet R.N. Medication Administered: TORADOL [IVP], Dose: 30 mg IVP over 2 minute(s), Site: #1 right AC. Medication Ordered: Toradol IV 30 mg (NOW). Start 19:55 01/31/2017 Harpreet, R.N., Stop 21:00 01/31/2017 Harpreet R.N. Medication Administered: IV NS (SALINE), Dose: IV Fluids over 1 hour(s), Rate: 1000 mL/hr, Dispensed: 1000 mL bag, Site: #1 right AC. Medication Ordered: IV NS : initial bolus 1000 mL (1000 mL/hr), then 1000 mL/hr for X1 (NOW); Sherman. Given 19:56 01/31/2017 Harpreet, R.N. Medication Administered: ZOFRAN [IVP] (ONDANSETRON HCL), Dose: 8 mg IVP over 4 minute(s), Site: #1 right AC. Medication Ordered: Zofran IV 8 mg (NOW). Given 19:56 01/31/2017 Harpreet, R.N. Medication Administered: PHENERGAN [IVP] (PROMETHAZINE HCL), Dose: 12.5 mg IVP over 5 minute(s), Site: #1 right AC. Medication Ordered: Phenergan IV 12.5 mg (HIGH ALERT MEDICATION, NOW).
--- NOTE | 2017-02-01 00:26 | ED MAR SUMMARY ---
..... Medication Administration Record [facility] [address] [place] [address] Patient: MALCOLM ORLANDO Visit ID: [id number] 26y, F Weight: 68.0 kg Height/Length: 65 in BMI: 25 ALLERGIES: Penicillins, Amoxicillin Given 19:51 01/31/2017 Harpreet R.N. Medication Administered: TORADOL [IVP], Dose: 30 mg IVP over 2 minute(s), Site: #1 right AC. Medication Ordered: Toradol IV 30 mg (NOW). Start 19:55 01/31/2017 Harpreet, R.N., Stop 21:00 01/31/2017 Harpreet R.N. Medication Administered: IV NS (SALINE), Dose: IV Fluids over 1 hour(s), Rate: 1000 mL/hr, Dispensed: 1000 mL bag, Site: #1 right AC. Medication Ordered: IV NS : initial bolus 1000 mL (1000 mL/hr), then 1000 mL/hr for X1 (NOW); Sherman. Given 19:56 01/31/2017 Harpreet, R.N. Medication Administered: ZOFRAN [IVP] (ONDANSETRON HCL), Dose: 8 mg IVP over 4 minute(s), Site: #1 right AC. Medication Ordered: Zofran IV 8 mg (NOW). Given 19:56 01/31/2017 Harpreet, R.N. Medication Administered: PHENERGAN [IVP] (PROMETHAZINE HCL), Dose: 12.5 mg IVP over 5 minute(s), Site: #1 right AC. Medication Ordered: Phenergan IV 12.5 mg (HIGH ALERT MEDICATION, NOW).
--- NOTE | 2017-02-01 00:26 | ED MED RECONCILIATION SUMMARY ---
Patient: DARIONMALCOLM Medication Reconciliation Report [facility] VisitID: [id number] [address] [place] [address] 26y, F Registration Date/Time: 01/31/2017 Weight: 68.0 kg Height/Length: 65 in. BMI: 25.0 ALLERGIES: Amoxicillin, Penicillins The patient's Home Medications are listed below: NONE. The source(s) of the original Home Medication information: Not obtained. The following Medications were given to the patient in the Emergency Department: IV NS IV Fluids bolus 0, then 1000 mL/hr, administered: 01/31/2017 7:55:00 PM PHENERGAN [IVP] IVP 12.5 mg, administered: 01/31/2017 7:56:00 PM Toradol [IVP] IVP 30 mg, administered: 01/31/2017 7:51:00 PM Zofran [IVP] IVP 8 mg, administered: 01/31/2017 7:56:00 PM The following Medications were prescribed to the patient: None.
== END 2017-01-31 21:30 | disposition home or self-care (01) ==
LOC: ED SRH 19:05
DX: G43.909 Migraine, unspecified, not intractable, without status migrainosus (principal); F17.210 Nicotine dependence, cigarettes, uncomplicated; Z88.0 Allergy status to penicillin; Z88.1 Allergy status to other antibiotic agents

== ENCOUNTER 2017-02-16 21:11 | Emergency (ER) | payer OTHER ==
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
--- NOTE | 2017-02-16 21:50 | ED ORDER SUMMARY ---
..... Patient: MALCOLM ORLANDO OrderSheet [facility] VisitID: [id number] [address] [place] [address] 26y, F Registration Date/Time: 02/16/2017 ORDER SHEET Weight: 68.0 kg (stated) Allergies: Amoxicillin, Penicillin GENERAL ORDERS: MEDICATION ORDERS: Toradol IM 60 mg (NOW) (21:46 02/16/2017 Adore A.R.N.P.) ([facility] 21:52 HSoule) (21:58 Nikolay Brandt.N.) IV FLUIDS: ORDER SHEET NOTES: [Electronically signed by Jackelin Parker R.N. (22:00 02/16/2017)] [Electronically signed by Lynn GoodsonR.N.P. (23:03 02/16/2017)] [Electronically locked/signed by Jackelin Parker R.N. (22:00 02/16/2017)]
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
--- NOTE | 2017-02-16 21:50 | ED ORDER SUMMARY ---
..... Patient: MALCOLM ORLANDO OrderSheet [facility] VisitID: [id number] [address] [place] [address] 26y, F Registration Date/Time: 02/16/2017 ORDER SHEET Weight: 68.0 kg (stated) Allergies: Amoxicillin, Penicillin GENERAL ORDERS: MEDICATION ORDERS: Toradol IM 60 mg (NOW) (21:46 02/16/2017 Adore A.R.N.P.) ([facility] 21:52 HSoule) (21:58 Nikolay Brandt.N.) IV FLUIDS: ORDER SHEET NOTES: [Electronically signed by Jackelin Parker R.N. (22:00 02/16/2017)] [Electronically signed by Lynn GoodsonR.N.P. (23:03 02/16/2017)] [Electronically locked/signed by Jackelin Parker R.N. (22:00 02/16/2017)]
--- NOTE | 2017-02-16 23:03 | ED MAR SUMMARY ---
..... Medication Administration Record [facility] [address] [place] [address] Patient: MALCOLM ORLANDO Visit ID: [id number] 26y, F Weight: 68.0 kg Height/Length: 66 in BMI: 24.2 ALLERGIES: Penicillin, Amoxicillin Given 21:54 02/16/2017 Jackelin Parker R.N. Medication Administered: TORADOL [IM] (KETOROLAC TROMETHAMINE), Dose: 60 mg IM. Medication Ordered: Toradol IM 60 mg (NOW).
--- NOTE | 2017-02-16 23:03 | ED DISCHARGE INSTRUCTIONS ---
Patient: MALCOLM ORLNADO General Instructions [facility] VisitID: [id number] [place] [address] 26y, F Registration Date/Time: 02/16/2017 Severe dental pain. INSTRUCTIONS Warnings: GENERAL WARNINGS: Return or contact your physician immediately if your condition worsens or changes unexpectedly, if not improving as expected, or if other problems arise. Specifically return if problem worsens. Prescription Medications: Tylenol with Codeine Liquid, 12 mg / 120 mg / 5 mL: take 1 teaspoon every 6 hours as needed for pain. Dispense sixty (60) mL. No refill. Follow-up: Follow up with a dentist in about two days even if well. Call for an appointment. Summary of care provided to patient. Understanding of the discharge instructions verbalized by patient. ADDITIONAL INFORMATION Dental Pain A crack or cavity in the tooth, which exposes the sensitive inner area of the tooth can cause tooth pain. An infection in the gum or the root of the tooth can cause pain and swelling. The pain is often made worse by drinking hot or cold fluids, or biting on hard foods. Pain may spread from the tooth to the ear or jaw on the same side. Home Care: Avoid hot and cold foods and liquids since your tooth may be sensitive to temperature changes. If your tooth is chipped or cracked, or if there is a large open cavity, apply OIL OF CLOVES (available mwmo-rqb-lbldqvo in drug stores) directly to the tooth to reduce pain. Some pharmacies carry an rbgy-kop-xwbubbx "toothache kit." This contains a paste, which can be applied over the exposed tooth to decrease sensitivity. A cold pack on your jaw over the sore area may help reduce pain. You may use acetaminophen (Tylenol) or ibuprofen (Motrin, Advil) to control pain, unless another medicine was prescribed. [ NOTE: If you have chronic liver or kidney disease or ever had a stomach ulcer or GI bleeding, talk with your doctor before using these medicines.] If you have signs of an infection, an antibiotic will be given. Take it as directed. Follow-Up as directed with a dentist. Your pain may go away with the treatment given. However, only a dentist can fully evaluate and treat the cause and prevent the pain from coming back again. TOOTHACHE IS A SIGN OF DISEASE IN YOUR TOOTH AND SHOULD BE EXAMINED AND TREATED BY A DENTIST. Get Prompt Medical Attention if any of the following occur: Your face becomes swollen or red Pain worsens or spreads to the neck Fever over 100.4 F (38.0 C) Unusual drowsiness; headache or stiff neck; weakness or fainting Pus drains from the tooth Difficulty swallowing or breathing Acetaminophen, Codeine Phosphate Oral solution What is this medicine? ACETAMINOPHEN; CODEINE (a set a RASTA clinton fen; KOE gato) is a pain reliever. It is used to treat mild to moderate pain. How should I use this medicine? Take this medicine by mouth. Use a specially marked spoon or dropper to measure your dose. Ask your pharmacist if you do not have a dropper or measuring spoon. Do not use a household spoon. Follow the directions on the prescription label. If the medicine upsets your stomach, take the medicine with food or milk. Do not take more than you are told to take. Talk to your trim setter helper regarding the use of this medicine in children. Special care may be needed. What side effects may I notice from receiving this medicine? Side effects that you should report to your doctor or health plant health care technician as soon as possible: allergic reactions like skin rash, itching or hives, swelling of the face, lips, or tongue breathing problems confusion feeling faint or lightheaded, falls stomach pain unusual bleeding or bruising unusually weak or tired yellowing of the eyes, skin Side effects that usually do not require medical attention (report to your doctor or health plant health care technician if they continue or are bothersome): nausea, vomiting What may interact with this medicine? alcohol antihistamines carbamazepine isoniazid medicines for depression, anxiety, or psychotic disturbances medicines for sleep muscle relaxants naltrexone narcotic medicines (opiates) for pain phenobarbital, phenytoin, and fosphenytoin tramadol What if I miss a dose? If you miss a dose, take it as soon as you can. If it is almost time for your next dose, take only that dose. Do not take double or extra doses. Where should I keep my medicine? Keep out of the reach of children. This medicine can be abused. Keep your medicine in a safe place to protect it from theft. Do not share this medicine with anyone. Selling or giving away this medicine is dangerous and against the law. Store at room temperature between 15 and 30 degrees C (59 and 86 degrees F). Protect from light. Keep container tightly closed. Throw away any unused medicine after the expiration date. Discard unused medicine and used packaging carefully. Pets and children can be harmed if they find used or lost packages. What should I tell my health care provider before I take this medicine? They need to know if you have any of these conditions: brain tumor Crohn's disease, inflammatory bowel disease, or ulcerative colitis drink more than 3 alcohol-containing drinks per day drug abuse or addiction head injury heart or circulation problems kidney disease or problems going to the bathroom liver disease lung disease, asthma, or breathing problems an unusual or allergic reaction to acetaminophen, codeine, parabens, other medicines, foods, dyes, or preservatives or trying to get breast-feeding What should I watch for while using this medicine? Tell your doctor or health plant health care technician if your pain does not go away, if it gets worse, or if you have new or a different type of pain. You may develop tolerance to the medicine. Tolerance means that you will need a higher dose of the medicine for pain relief. Tolerance is normal and is expected if you take the medicine for a long time. Do not suddenly stop taking your medicine because you may develop a severe reaction. Your body becomes used to the medicine. This does NOT mean you are addicted. Addiction is a behavior related to getting and using a drug for a non-medical reason. If you have pain, you have a medical reason to take pain medicine. Your doctor will tell you how much medicine to take. If your doctor wants you to stop the medicine, the dose will be slowly lowered over time to avoid any side effects. You may get drowsy or dizzy when you first start taking the medicine or change doses. Do not drive, use machinery, or do anything that may be dangerous until you know how the medicine affects you. Stand or sit up slowly. There are different types of narcotic medicines (opiates) for pain. If you take more than one type at the same time, you may have more side effects. Give your health care provider a list of all medicines you use. Your doctor will tell you how much medicine to take. Do not take more medicine than directed. Call emergency for help if you have problems breathing. The medicine will cause constipation. Try to have a bowel movement at least every 2 to 3 days. If you do not have a bowel movement for 3 days, call your doctor or health plant health care technician. Too much acetaminophen can be very dangerous. Do not take Tylenol (acetaminophen) or medicines that contain acetaminophen with this medicine. Many non-prescription medicines contain acetaminophen. Always read the labels carefully. Immediately call your physician or get emergency help if you are breast-feeding and your baby is sleepier than usual, is limp, or has difficulty or breathing. You have been given the following additional information: Dental Pain Acetaminophen, Codeine Phosphate Oral solution (Electronically signed by Lynn Goodson A.R.N.P. 02/16/2017 23:03)
--- NOTE | 2017-02-16 23:03 | ED MED RECONCILIATION SUMMARY ---
Patient: MALCOLM ORLANDO Medication Reconciliation Report [facility] VisitID: [id number] [address] [place] [address] 26y, F Registration Date/Time: 02/16/2017 Weight: 68.0 kg Height/Length: 66 in. BMI: 24.2 ALLERGIES: Amoxicillin, Penicillin The patient's Home Medications are listed below: THE FOLLOWING MEDICATIONS NEED TO BE RECONCILED: Clindamycin HCl Oral The source(s) of the original Home Medication information: patient The following Medications were given to the patient in the Emergency Department: Toradol [IM] IM 60 mg, administered: 02/16/2017 9:54:00 PM The following Medications were prescribed to the patient: Tylenol with Codeine Liquid, 12 mg / 120 mg / 5 mL: take 1 teaspoon every 6 hours as needed for pain. Dispense sixty (60) mL. No refill. -- Lynn Goodson A.R.N.P.
--- NOTE | 2017-02-16 23:03 | ED MAR SUMMARY ---
..... Medication Administration Record [facility] [address] [place] [address] Patient: MALCOLM ORLANDO Visit ID: [id number] 26y, F Weight: 68.0 kg Height/Length: 66 in BMI: 24.2 ALLERGIES: Penicillin, Amoxicillin Given 21:54 02/16/2017 Jackelin Parker R.N. Medication Administered: TORADOL [IM] (KETOROLAC TROMETHAMINE), Dose: 60 mg IM. Medication Ordered: Toradol IM 60 mg (NOW).
--- NOTE | 2017-02-16 23:03 | ED DISCHARGE INSTRUCTIONS ---
Patient: MALCOLM ORLANDO General Instructions [facility] VisitID: [id number] [place] [address] 26y, F Registration Date/Time: 02/16/2017 Severe dental pain. INSTRUCTIONS Warnings: GENERAL WARNINGS: Return or contact your physician immediately if your condition worsens or changes unexpectedly, if not improving as expected, or if other problems arise. Specifically return if problem worsens. Prescription Medications: Tylenol with Codeine Liquid, 12 mg / 120 mg / 5 mL: take 1 teaspoon every 6 hours as needed for pain. Dispense sixty (60) mL. No refill. Follow-up: Follow up with a dentist in about two days even if well. Call for an appointment. Summary of care provided to patient. Understanding of the discharge instructions verbalized by patient. ADDITIONAL INFORMATION Dental Pain A crack or cavity in the tooth, which exposes the sensitive inner area of the tooth can cause tooth pain. An infection in the gum or the root of the tooth can cause pain and swelling. The pain is often made worse by drinking hot or cold fluids, or biting on hard foods. Pain may spread from the tooth to the ear or jaw on the same side. Home Care: Avoid hot and cold foods and liquids since your tooth may be sensitive to temperature changes. If your tooth is chipped or cracked, or if there is a large open cavity, apply OIL OF CLOVES (available fycy-igf-madvcpy in drug stores) directly to the tooth to reduce pain. Some pharmacies carry an qlrl-qmj-cjrnjrl "toothache kit." This contains a paste, which can be applied over the exposed tooth to decrease sensitivity. A cold pack on your jaw over the sore area may help reduce pain. You may use acetaminophen (Tylenol) or ibuprofen (Motrin, Advil) to control pain, unless another medicine was prescribed. [ NOTE: If you have chronic liver or kidney disease or ever had a stomach ulcer or GI bleeding, talk with your doctor before using these medicines.] If you have signs of an infection, an antibiotic will be given. Take it as directed. Follow-Up as directed with a dentist. Your pain may go away with the treatment given. However, only a dentist can fully evaluate and treat the cause and prevent the pain from coming back again. TOOTHACHE IS A SIGN OF DISEASE IN YOUR TOOTH AND SHOULD BE EXAMINED AND TREATED BY A DENTIST. Get Prompt Medical Attention if any of the following occur: Your face becomes swollen or red Pain worsens or spreads to the neck Fever over 100.4 F (38.0 C) Unusual drowsiness; headache or stiff neck; weakness or fainting Pus drains from the tooth Difficulty swallowing or breathing Acetaminophen, Codeine Phosphate Oral solution What is this medicine? ACETAMINOPHEN; CODEINE (a set a RASTA clinton fen; KOE gato) is a pain reliever. It is used to treat mild to moderate pain. How should I use this medicine? Take this medicine by mouth. Use a specially marked spoon or dropper to measure your dose. Ask your pharmacist if you do not have a dropper or measuring spoon. Do not use a household spoon. Follow the directions on the prescription label. If the medicine upsets your stomach, take the medicine with food or milk. Do not take more than you are told to take. Talk to your hand router operator regarding the use of this medicine in children. Special care may be needed. What side effects may I notice from receiving this medicine? Side effects that you should report to your doctor or health transitional care manager as soon as possible: allergic reactions like skin rash, itching or hives, swelling of the face, lips, or tongue breathing problems confusion feeling faint or lightheaded, falls stomach pain unusual bleeding or bruising unusually weak or tired yellowing of the eyes, skin Side effects that usually do not require medical attention (report to your doctor or health transitional care manager if they continue or are bothersome): nausea, vomiting What may interact with this medicine? alcohol antihistamines carbamazepine isoniazid medicines for depression, anxiety, or psychotic disturbances medicines for sleep muscle relaxants naltrexone narcotic medicines (opiates) for pain phenobarbital, phenytoin, and fosphenytoin tramadol What if I miss a dose? If you miss a dose, take it as soon as you can. If it is almost time for your next dose, take only that dose. Do not take double or extra doses. Where should I keep my medicine? Keep out of the reach of children. This medicine can be abused. Keep your medicine in a safe place to protect it from theft. Do not share this medicine with anyone. Selling or giving away this medicine is dangerous and against the law. Store at room temperature between 15 and 30 degrees C (59 and 86 degrees F). Protect from light. Keep container tightly closed. Throw away any unused medicine after the expiration date. Discard unused medicine and used packaging carefully. Pets and children can be harmed if they find used or lost packages. What should I tell my health care provider before I take this medicine? They need to know if you have any of these conditions: brain tumor Crohn's disease, inflammatory bowel disease, or ulcerative colitis drink more than 3 alcohol-containing drinks per day drug abuse or addiction head injury heart or circulation problems kidney disease or problems going to the bathroom liver disease lung disease, asthma, or breathing problems an unusual or allergic reaction to acetaminophen, codeine, parabens, other medicines, foods, dyes, or preservatives or trying to get breast-feeding What should I watch for while using this medicine? Tell your doctor or health transitional care manager if your pain does not go away, if it gets worse, or if you have new or a different type of pain. You may develop tolerance to the medicine. Tolerance means that you will need a higher dose of the medicine for pain relief. Tolerance is normal and is expected if you take the medicine for a long time. Do not suddenly stop taking your medicine because you may develop a severe reaction. Your body becomes used to the medicine. This does NOT mean you are addicted. Addiction is a behavior related to getting and using a drug for a non-medical reason. If you have pain, you have a medical reason to take pain medicine. Your doctor will tell you how much medicine to take. If your doctor wants you to stop the medicine, the dose will be slowly lowered over time to avoid any side effects. You may get drowsy or dizzy when you first start taking the medicine or change doses. Do not drive, use machinery, or do anything that may be dangerous until you know how the medicine affects you. Stand or sit up slowly. There are different types of narcotic medicines (opiates) for pain. If you take more than one type at the same time, you may have more side effects. Give your health care provider a list of all medicines you use. Your doctor will tell you how much medicine to take. Do not take more medicine than directed. Call emergency for help if you have problems breathing. The medicine will cause constipation. Try to have a bowel movement at least every 2 to 3 days. If you do not have a bowel movement for 3 days, call your doctor or health transitional care manager. Too much acetaminophen can be very dangerous. Do not take Tylenol (acetaminophen) or medicines that contain acetaminophen with this medicine. Many non-prescription medicines contain acetaminophen. Always read the labels carefully. Immediately call your physician or get emergency help if you are breast-feeding and your baby is sleepier than usual, is limp, or has difficulty or breathing. You have been given the following additional information: Dental Pain Acetaminophen, Codeine Phosphate Oral solution (Electronically signed by Lynn Goodson A.R.N.P. 02/16/2017 23:03)
--- NOTE | 2017-02-16 23:03 | ED MED RECONCILIATION SUMMARY ---
Patient: MALCOLM ORLANDO Medication Reconciliation Report [facility] VisitID: [id number] [address] [place] [address] 26y, F Registration Date/Time: 02/16/2017 Weight: 68.0 kg Height/Length: 66 in. BMI: 24.2 ALLERGIES: Amoxicillin, Penicillin The patient's Home Medications are listed below: THE FOLLOWING MEDICATIONS NEED TO BE RECONCILED: Clindamycin HCl Oral The source(s) of the original Home Medication information: patient The following Medications were given to the patient in the Emergency Department: Toradol [IM] IM 60 mg, administered: 02/16/2017 9:54:00 PM The following Medications were prescribed to the patient: Tylenol with Codeine Liquid, 12 mg / 120 mg / 5 mL: take 1 teaspoon every 6 hours as needed for pain. Dispense sixty (60) mL. No refill. -- Lynn Goodson A.R.N.P.
== END 2017-02-16 21:55 | disposition home or self-care (01) ==
LOC: ED SRH 21:11
DX: K08.89 Other specified disorders of teeth and supporting structures (principal)

== ENCOUNTER 2017-02-22 20:11 | Emergency (ER) | payer OTHER ==
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
--- NOTE | 2017-02-22 22:17 | ED MAR SUMMARY ---
..... Medication Administration Record [facility] [address] [place], [place] [id number] Patient: MALCOLM ORLANDO Laron Marino Visit ID: [id number] 26y, F Weight: 68.0 kg Height/Length: 67 in BMI: 23.5 ALLERGIES: Amoxicillin, Penicillins
--- NOTE | 2017-02-22 22:17 | ED DISCHARGE INSTRUCTIONS ---
Patient: MALCOLM ORLANDO General Instructions [facility] VisitID: [id number] [place] [address] 26y, F Registration Date/Time: 02/22/2017 Moderate dental pain. INSTRUCTIONS Warnings: GENERAL WARNINGS: Return or contact your physician immediately if your condition worsens or changes unexpectedly, if not improving as expected, or if other problems arise. Specifically return if problem worsens. Prescription Medications: Toradol 10 mg tablets: Take 1 tablet orally every 6 hours as needed. Dispense fifteen (15). No refills. Substitution is permissible. Follow-up: Follow up with a dentist in about three days as needed. Call for an appointment. Summary of care provided to patient. Understanding of the discharge instructions verbalized by patient. ADDITIONAL INFORMATION Dental Pain A crack or cavity in the tooth, which exposes the sensitive inner area of the tooth can cause tooth pain. An infection in the gum or the root of the tooth can cause pain and swelling. The pain is often made worse by drinking hot or cold fluids, or biting on hard foods. Pain may spread from the tooth to the ear or jaw on the same side. Home Care: Avoid hot and cold foods and liquids since your tooth may be sensitive to temperature changes. If your tooth is chipped or cracked, or if there is a large open cavity, apply OIL OF CLOVES (available oaur-heq-vicdetl in drug stores) directly to the tooth to reduce pain. Some pharmacies carry an uouc-qtb-ymaialq "toothache kit." This contains a paste, which can be applied over the exposed tooth to decrease sensitivity. A cold pack on your jaw over the sore area may help reduce pain. You may use acetaminophen (Tylenol) or ibuprofen (Motrin, Advil) to control pain, unless another medicine was prescribed. [ NOTE: If you have chronic liver or kidney disease or ever had a stomach ulcer or GI bleeding, talk with your doctor before using these medicines.] If you have signs of an infection, an antibiotic will be given. Take it as directed. Follow-Up as directed with a dentist. Your pain may go away with the treatment given. However, only a dentist can fully evaluate and treat the cause and prevent the pain from coming back again. TOOTHACHE IS A SIGN OF DISEASE IN YOUR TOOTH AND SHOULD BE EXAMINED AND TREATED BY A DENTIST. Get Prompt Medical Attention if any of the following occur: Your face becomes swollen or red Pain worsens or spreads to the neck Fever over 100.4 F (38.0 C) Unusual drowsiness; headache or stiff neck; weakness or fainting Pus drains from the tooth Difficulty swallowing or breathing Ketorolac Tromethamine Oral tablet What is this medicine? KETOROLAC (ricarda toe ROLE ak) is a non-steroidal anti-inflammatory drug (NSAID). It is used for a short while to treat moderate to severe pain, including pain after surgery. It should not be used for more than 5 days. How should I use this medicine? Take this medicine by mouth with a full glass of water. Follow the directions on the prescription label. Take your medicine at regular intervals. Do not take your medicine more often than directed. Do not take more than the recommended dose. A special MedGuide will be given to you by the pharmacist with each prescription and refill. Be sure to read this information carefully each time. Talk to your supervisor propellant charge loading regarding the use of this medicine in children. While this drug may be prescribed for children as young as 16 years of age for selected conditions, precautions do apply. Patients over 65 years old may have a stronger reaction and need a smaller dose. What side effects may I notice from receiving this medicine? Side effects that you should report to your doctor or health healthcare consultant as soon as possible: allergic reactions like skin rash, itching or hives, swelling of the face, lips, or tongue black or tarry stools breathing problems changes in vision chest pain high blood pressure nausea or vomiting redness, blistering, peeling or loosening of the skin, including inside the mouth severe abdominal pain slurred speech or weakness on one side of the body unexplained weight gain or swelling unusual bleeding or bruising unusually weak or tired yellowing of eyes or skin Side effects that usually do not require medical attention (report to your doctor or health healthcare consultant if they continue or are bothersome): diarrhea dizziness headache heartburn What may interact with this medicine? Do not take this medicine with any of the following medications: aspirin and aspirin-like medicines cidofovir methotrexate NSAIDs, medicines for pain and inflammation, like ibuprofen or naproxen pemetrexed probenecid This medicine may also interact with the following medications: alcohol alendronate alprazolam carbamazepine cyclosporine diuretics flavocoxid fluoxetine ginkgo lithium medicines for high blood pressure like enalapril medicines that affect platelets like pentoxifylline medicines that treat or prevent blood clots like heparin, warfarin muscle relaxants phenytoin steroid medicines like prednisone or cortisone thiothixene What if I miss a dose? If you miss a dose, take it as soon as you can. If it is almost time for your next dose, take only that dose. Do not take double or extra doses. Where should I keep my medicine? Keep out of the reach of children. Store at room temperature between 20 and 25 degrees C (68 and 77 degrees F). Throw away any unused medicine after the expiration date. What should I tell my health care provider before I take this medicine? They need to know if you have any of these conditions: asthma bleeding problems like hemophilia cigarette smoker drink more than 3 alcohol containing drinks a day heart disease or circulation problems such as heart failure or leg edema (fluid retention) high blood pressure kidney disease liver disease stomach bleeding or ulcers an unusual or allergic reaction to ketorolac, aspirin, other NSAIDs, other medicines, foods, dyes, or preservatives or trying to get breast-feeding What should I watch for while using this medicine? Tell your doctor or health healthcare consultant if your pain does not get better. Talk to your doctor before taking another medicine for pain. Do not treat yourself. This medicine does not prevent heart attack or stroke. In fact, this medicine may increase the chance of a heart attack or stroke. The chance may increase with longer use of this medicine and in people who have heart disease. If you take aspirin to prevent heart attack or stroke, talk with your doctor or health healthcare consultant. Do not take medicines such as ibuprofen and naproxen with this medicine. Side effects such as stomach upset, nausea, or ulcers may be more likely to occur. Many medicines available without a prescription should not be taken with this medicine. This medicine can cause ulcers and bleeding in the stomach and intestines at any time during treatment. Do not smoke cigarettes or drink alcohol. These increase irritation to your stomach and can make it more susceptible to damage from this medicine. Ulcers and bleeding can happen without warning symptoms and can cause . You may get drowsy or dizzy. Do not drive, use machinery, or do anything that needs mental alertness until you know how this medicine affects you. Do not stand or sit up quickly, especially if you are an older patient. This reduces the risk of dizzy or fainting spells. This medicine can cause you to bleed more easily. Try to avoid damage to your teeth and gums when you brush or floss your teeth. You have been given the following additional information: Dental Pain Ketorolac Tromethamine Oral tablet (Electronically signed by Lynn Goodson A.R.N.P. 02/22/2017 22:13)
--- NOTE | 2017-02-22 22:17 | ED MAR SUMMARY ---
..... Medication Administration Record [facility] [address] [place], [place] [id number] Patient: MALCOLM ORLANDO Laron Marino Visit ID: [id number] 26y, F Weight: 68.0 kg Height/Length: 67 in BMI: 23.5 ALLERGIES: Amoxicillin, Penicillins
--- NOTE | 2017-02-22 22:17 | ED MED RECONCILIATION SUMMARY ---
Patient: MALCOLM ORLANDO Medication Reconciliation Report [facility] VisitID: [id number] [address] [place] [address] 26y, F Registration Date/Time: 02/22/2017 Weight: 68.0 kg Height/Length: 67 in. BMI: 23.5 ALLERGIES: Amoxicillin, Penicillins The patient's Home Medications are listed below: NONE. The source(s) of the original Home Medication information: Not obtained. The following Medications were given to the patient in the Emergency Department: None. The following Medications were prescribed to the patient: Toradol 10 mg tablets: Take 1 tablet orally every 6 hours as needed. Dispense fifteen (15). No refills. Substitution is permissible. -- Lynn Goodson A.R.N.P.
--- NOTE | 2017-02-22 22:17 | ED DISCHARGE INSTRUCTIONS ---
Patient: MALCOLM ORLANDO General Instructions [facility] VisitID: [id number] [place] [address] 26y, F Registration Date/Time: 02/22/2017 Moderate dental pain. INSTRUCTIONS Warnings: GENERAL WARNINGS: Return or contact your physician immediately if your condition worsens or changes unexpectedly, if not improving as expected, or if other problems arise. Specifically return if problem worsens. Prescription Medications: Toradol 10 mg tablets: Take 1 tablet orally every 6 hours as needed. Dispense fifteen (15). No refills. Substitution is permissible. Follow-up: Follow up with a dentist in about three days as needed. Call for an appointment. Summary of care provided to patient. Understanding of the discharge instructions verbalized by patient. ADDITIONAL INFORMATION Dental Pain A crack or cavity in the tooth, which exposes the sensitive inner area of the tooth can cause tooth pain. An infection in the gum or the root of the tooth can cause pain and swelling. The pain is often made worse by drinking hot or cold fluids, or biting on hard foods. Pain may spread from the tooth to the ear or jaw on the same side. Home Care: Avoid hot and cold foods and liquids since your tooth may be sensitive to temperature changes. If your tooth is chipped or cracked, or if there is a large open cavity, apply OIL OF CLOVES (available aprp-gme-cdtlveg in drug stores) directly to the tooth to reduce pain. Some pharmacies carry an bupj-jnr-fbpfmtt "toothache kit." This contains a paste, which can be applied over the exposed tooth to decrease sensitivity. A cold pack on your jaw over the sore area may help reduce pain. You may use acetaminophen (Tylenol) or ibuprofen (Motrin, Advil) to control pain, unless another medicine was prescribed. [ NOTE: If you have chronic liver or kidney disease or ever had a stomach ulcer or GI bleeding, talk with your doctor before using these medicines.] If you have signs of an infection, an antibiotic will be given. Take it as directed. Follow-Up as directed with a dentist. Your pain may go away with the treatment given. However, only a dentist can fully evaluate and treat the cause and prevent the pain from coming back again. TOOTHACHE IS A SIGN OF DISEASE IN YOUR TOOTH AND SHOULD BE EXAMINED AND TREATED BY A DENTIST. Get Prompt Medical Attention if any of the following occur: Your face becomes swollen or red Pain worsens or spreads to the neck Fever over 100.4 F (38.0 C) Unusual drowsiness; headache or stiff neck; weakness or fainting Pus drains from the tooth Difficulty swallowing or breathing Ketorolac Tromethamine Oral tablet What is this medicine? KETOROLAC (ricarda toe ROLE ak) is a non-steroidal anti-inflammatory drug (NSAID). It is used for a short while to treat moderate to severe pain, including pain after surgery. It should not be used for more than 5 days. How should I use this medicine? Take this medicine by mouth with a full glass of water. Follow the directions on the prescription label. Take your medicine at regular intervals. Do not take your medicine more often than directed. Do not take more than the recommended dose. A special MedGuide will be given to you by the pharmacist with each prescription and refill. Be sure to read this information carefully each time. Talk to your java technical manager regarding the use of this medicine in children. While this drug may be prescribed for children as young as 16 years of age for selected conditions, precautions do apply. Patients over 65 years old may have a stronger reaction and need a smaller dose. What side effects may I notice from receiving this medicine? Side effects that you should report to your doctor or health multi care technician as soon as possible: allergic reactions like skin rash, itching or hives, swelling of the face, lips, or tongue black or tarry stools breathing problems changes in vision chest pain high blood pressure nausea or vomiting redness, blistering, peeling or loosening of the skin, including inside the mouth severe abdominal pain slurred speech or weakness on one side of the body unexplained weight gain or swelling unusual bleeding or bruising unusually weak or tired yellowing of eyes or skin Side effects that usually do not require medical attention (report to your doctor or health multi care technician if they continue or are bothersome): diarrhea dizziness headache heartburn What may interact with this medicine? Do not take this medicine with any of the following medications: aspirin and aspirin-like medicines cidofovir methotrexate NSAIDs, medicines for pain and inflammation, like ibuprofen or naproxen pemetrexed probenecid This medicine may also interact with the following medications: alcohol alendronate alprazolam carbamazepine cyclosporine diuretics flavocoxid fluoxetine ginkgo lithium medicines for high blood pressure like enalapril medicines that affect platelets like pentoxifylline medicines that treat or prevent blood clots like heparin, warfarin muscle relaxants phenytoin steroid medicines like prednisone or cortisone thiothixene What if I miss a dose? If you miss a dose, take it as soon as you can. If it is almost time for your next dose, take only that dose. Do not take double or extra doses. Where should I keep my medicine? Keep out of the reach of children. Store at room temperature between 20 and 25 degrees C (68 and 77 degrees F). Throw away any unused medicine after the expiration date. What should I tell my health care provider before I take this medicine? They need to know if you have any of these conditions: asthma bleeding problems like hemophilia cigarette smoker drink more than 3 alcohol containing drinks a day heart disease or circulation problems such as heart failure or leg edema (fluid retention) high blood pressure kidney disease liver disease stomach bleeding or ulcers an unusual or allergic reaction to ketorolac, aspirin, other NSAIDs, other medicines, foods, dyes, or preservatives or trying to get breast-feeding What should I watch for while using this medicine? Tell your doctor or health multi care technician if your pain does not get better. Talk to your doctor before taking another medicine for pain. Do not treat yourself. This medicine does not prevent heart attack or stroke. In fact, this medicine may increase the chance of a heart attack or stroke. The chance may increase with longer use of this medicine and in people who have heart disease. If you take aspirin to prevent heart attack or stroke, talk with your doctor or health multi care technician. Do not take medicines such as ibuprofen and naproxen with this medicine. Side effects such as stomach upset, nausea, or ulcers may be more likely to occur. Many medicines available without a prescription should not be taken with this medicine. This medicine can cause ulcers and bleeding in the stomach and intestines at any time during treatment. Do not smoke cigarettes or drink alcohol. These increase irritation to your stomach and can make it more susceptible to damage from this medicine. Ulcers and bleeding can happen without warning symptoms and can cause . You may get drowsy or dizzy. Do not drive, use machinery, or do anything that needs mental alertness until you know how this medicine affects you. Do not stand or sit up quickly, especially if you are an older patient. This reduces the risk of dizzy or fainting spells. This medicine can cause you to bleed more easily. Try to avoid damage to your teeth and gums when you brush or floss your teeth. You have been given the following additional information: Dental Pain Ketorolac Tromethamine Oral tablet (Electronically signed by Lynn Goodson A.R.N.P. 02/22/2017 22:13)
--- NOTE | 2017-02-22 22:17 | ED MED RECONCILIATION SUMMARY ---
Patient: MALCOLM ORLANDO Medication Reconciliation Report [facility] VisitID: [id number] [address] [place] [address] 26y, F Registration Date/Time: 02/22/2017 Weight: 68.0 kg Height/Length: 67 in. BMI: 23.5 ALLERGIES: Amoxicillin, Penicillins The patient's Home Medications are listed below: NONE. The source(s) of the original Home Medication information: Not obtained. The following Medications were given to the patient in the Emergency Department: None. The following Medications were prescribed to the patient: Toradol 10 mg tablets: Take 1 tablet orally every 6 hours as needed. Dispense fifteen (15). No refills. Substitution is permissible. -- Lynn Goodson A.R.N.P.
== END 2017-02-22 21:25 | disposition home or self-care (01) ==
LOC: ED SRH 20:11
DX: K08.89 Other specified disorders of teeth and supporting structures (principal); Z72.0 Tobacco use; Z88.0 Allergy status to penicillin